=== PATIENT | female | born 1990 | race African-American/Black ===

== ENCOUNTER 2016-12-16 10:36 | Emergency (ER) | payer MEDICAID ==
[~2016-12-16 10:36] MED LIST: TERC0.4C2 VAGINAL
--- NOTE | 2016-12-16 11:34 | PD ---
HPI Chief Complaint pelvic cramping Date Seen: Dec 16, 2016 Time Seen: 11:16 Travel History International Travel<30 Days: No Contact w/Intl Traveler<30Days: No Known Affected Area: No History of Present Illness HPI 26 y/o at 38/1 weeks presents with pelvic pain/cramping. She woke up this morning with pain and lower pelvic cramping. Denies loss of fluids, vaginal bleeding/discharge, contractions. Endorses movement. Follows with Dr. Patel for OB. Denies any other complaints/concerns. Denies headaches, changes in vision, new leg swelling. Denies any chest pain, SOB, dysuria, leg pain. Para: 3 : 5 History Past Medical History Medical History: Denies Significant Hx Obstetric History Obstetric History Miscarriage at 2 months with last All vaginal deliveries Past Surgical History Surgical History: No Previous Surgery Family History Family History: Negative Social History Alcohol Use: No Tobacco Use: No Substance Abuse: No Allergies-Medications (Allergen,Severity, Reaction): Coded Allergies: No Known Allergies (Verified , 12/11/16) Home Meds Active Scripts Terconazole Vaginal Cream 0.4 % Cream1 Appl VAGINAL HS #45 GM Ref 0 Insert 1 applicatorful intravaginally at bedtime for 7 consecutive days. Prov:Lakeshia Patel MD R1 11/03/16 Review of Systems General / Constitutional: Weight Gain, No: Fever, Weight Loss, Chills Eyes: No: Blurred Vision, Visual changes HENT: No: Headaches, Lightheadedness Cardiovascular: No: Irregular Rhythm, Chest Pain or Discomfort, Palpitations, Tachycardia, Syncope Respiratory: No: Cough, Short of Breath, Wheezing Gastrointestinal: No: Nausea, Vomiting, Diarrhea, Abdominal Pain, Constipation Genitourinary: Pelvic Pain, No: Urgency, Frequency, Dysuria, Nocturia, Hematuria, Vaginal Bleeding Musculoskeletal: No: Limited ROM, Cramping, Edema Skin: No Rash, No Itching Neurologic: No: Weakness, Dizziness Psychiatric: No: Anxiety, Depression Endocrine: No: Heat Intolerance, Cold Intolerance Hematologic/Lymphatic: No Easy Bruising, No Lymph Node Enlargement Physical Exam Narrative GENERAL: Well-nourished, well-developed patient. SKIN: Warm and dry. HEAD: Normocephalic and atraumatic. EYES: No scleral icterus. No injection or drainage. ENT: No nasal drainage noted. Mucous membranes pink. Airway patent. NECK: Supple, trachea midline. No JVD. CARDIOVASCULAR: Regular rate and rhythm without murmurs, gallops, or rubs. RESPIRATORY: Breath sounds equal bilaterally. No accessory muscle use. ABDOMEN/GI: Abdomen soft, non-tender, bowel sounds present, no rebound, no guarding Gravid to 38 weeks size Fundal Height: 38 GENITOURINARY: Dilatation: 2 Effacement: 40 Station: -2 Presentation: vertex Membranes: intact Uterine Contractions: rare FHT's: Category: 1 Baseline: 130 Reactive: yes Variability: moderate Decels: none EXTREMITIES: No cyanosis or edema. BACK: Nontender without obvious deformity. No CVA tenderness. NEUROLOGICAL: Awake and alert. Motor and sensory grossly within normal limits. Five out of 5 muscle strength in all muscle groups. Normal speech. Data Data Vital Signs Reviewed: Yes MDM Medical Record Reviewed: Yes Interpretation(s) 26 y/o at 38/1 weeks presents with cramping 1) IUP with pelvic pressure - heart monitoring - Cervical check - Monitor vitals Narrative Course / MDM Cervix is 2cm dilated, thick, -2 station Category 1 FHT is reassuring. Discharge home in stable condition Return to ED if worsening symptoms Diagnosis Diagnosis: Primary Impression: Cramping affecting , antepartum Disposition: 01 DISCHARGE HOME Condition: Stable Wilver Melgoza MD R1 Dec 16, 2016 11:33
--- NOTE | 2016-12-16 12:31 | PD ---
History of Present Illness History of Present Illness This patient is a 26-year-old black female at 38 weeks presents combining of contraction pain that was severe this morning but now has decreased. No bleeding or ruptured membranes, baby is reactive heart rate tracing other minimal to home as no contractions. Cervix was checked by the family practice resident cervix was 2/ thick and high. I agree with her plan to send the patient home to bedrest return for increasing pain or other problems Josue Gupta II, MD Dec 16, 2016 12:31
== END 2016-12-16 13:13 | disposition home or self-care (01) ==
LOC: HOBED 10:36
DX: O26.93 Pregnancy related conditions, unspecified, third trimester (principal); R10.2 Pelvic and perineal pain; Z3A.38 38 weeks gestation of pregnancy
CPT/HCPCS: 99284

== ENCOUNTER → 2016-12-18 | Outpatient (CLI) | payer MEDICAID ==
[~2016-12-18] MED LIST changes: +CALNTAB; +CEPH-460 PO; +IBUP-232 PO; +OXYC1TAB63 PO; +SENN1TAB PO; +SIME80CH PO; +TRICTAB PO
== END ==
LOC: HPND 08:11
PROVIDERS: ATTEND Family Medicine
DX: O47.03 False labor before 37 completed weeks of gestation, third trimester (principal); O36.5930 Maternal care for other known or suspected poor fetal growth, third trimester, not applicable or unspecified; Z3A.37 37 weeks gestation of pregnancy
CPT/HCPCS: 76816

== ENCOUNTER 2016-12-19 01:18 | Inpatient (IN) | payer MEDICAID ==
[~2016-12-19 01:18] MED LIST changes: -CALNTAB; -CEPH-460 PO; -IBUP-232 PO; -OXYC1TAB63 PO; -SENN1TAB PO; -SIME80CH PO; -TRICTAB PO
[2016-12-19] MEDS ORDERED: LACTATED RINGER'S 1000 ML INJ 1,000 ML IV SCH (01:47)
[2016-12-19] MEDS ORDERED: LACTATED RINGER'S 1000 ML INJ 1,000 ML IV PRN (01:47)
[2016-12-19] MEDS ORDERED: LIDOCAINE HCL 1% 50 ML VIAL INFIL PRN (02:00)
[2016-12-19] MEDS ORDERED: LIDOCAINE HCL 1% 50 ML VIAL I-DERMAL PRN (02:00)
[2016-12-19] MEDS ORDERED: CITRIC ACID-SODIUM CITRATE LIQ 30 ML UDC PO SCH (02:00)
[2016-12-19] MEDS ORDERED: SODIUM CHLORID 0.9% 500 ML INJ 500 ML IV PRN (02:00)
[2016-12-19] MEDS ORDERED: ONDANSETRON HCL 4 MG/2 ML VIAL IV PRN (02:00)
[2016-12-19] MEDS ORDERED: MINERAL OIL 10 ML VIAL TOPICAL PRN (02:00)
[2016-12-19] MEDS ORDERED: OXYTOCIN 30 UNITS-500ML PREMIX 500 ML IV ONE (02:00)
[2016-12-19] MEDS ORDERED: SODIUM CHLOR 0.9% 1000 ML INJ 1,000 ML IV PRN (02:07)
--- NOTE | 2016-12-19 02:24 | PD ---
HPI Chief Complaint Contractions Date Seen: Dec 19, 2016 (Zach Patel MD R1) Travel History International Travel<30 Days: No Contact w/Intl Traveler<30Days: No Known Affected Area: No (Zach Patel MD R1) History of Present Illness HPI Mrs. Quintero is a 26 y/o at 38/4 presenting with contractions. She states that her contractions started earlier this evening and have progressed throughout the night to every 1-2 minutes. She is visibly in discomfort due to these contractions, but is able to breathe through her pain. She endorses good movement and denies any loss of fluid or vaginal bleeding. She has had some thick, white discharge that has been previously diagnosed as yeast. She has been using Terconazole vaginal cream nightly, however her discharge persists. Otherwise she has no complaints and denies any fevers, chills, SOB, chest pain, NVD, swelling or calf tenderness. She is GBS negative and is a patient of Dr. Lakeshia Patel from the [facility]. (Zach Patel MD R1) History Past Medical History Narrative Medical Denies significant PMHx (Zach Patel MD R1) Obstetric History Obstetric History First four pregnancies were uncomplicated at full term Last was a miscarriage at approximately 2 weeks per patient (Zach Patel MD R1) Past Surgical History Narrative Surgical Denies SHx (Zach Patel MD) Family History Narrative Family History Denies significant FMHx (Zach Patel MD) Social History Narrative Social History Denies any tobacco, alcohol, or illicit drug use. (Zach Patel MD R1) Allergies-Medications (Allergen,Severity, Reaction): Coded Allergies: No Known Allergies (Verified , 12/22/16) Home Meds Active Scripts Vit-Ferrous Fumarate ()1 Tab Tab1 Tab PO DAILY #30 TAB Ref 0 Prov:Lakeshia Patel MD R1 12/22/16 Reported Medications Vitamin (Calna)1 Tab Tab 12/22/16 Discontinued Scripts Cephalexin (Keflex)500 Mg [id number] Mg PO Q12H #14 CAP Ref 0 Prov:Zach Patel MD R1 12/19/16 Terconazole Vaginal Cream 0.4 % Cream1 Appl VAGINAL HS #45 GM Ref 0 Insert 1 applicatorful intravaginally at bedtime for 7 consecutive days. Prov:EkoLakeshia MD R1 11/03/16 Review of Systems General / Constitutional: No: Fever Eyes: No: Blurred Vision HENT: No: Headaches Cardiovascular: No: Chest Pain or Discomfort Respiratory: No: Cough, Short of Breath Gastrointestinal: No: Nausea, Vomiting, Diarrhea Genitourinary: Discharge (Thick, white consistent with yeast ), No: Dysuria, Vaginal Bleeding Musculoskeletal: No: Edema Skin: No Rash Neurologic: No: Headache Psychiatric: No: Substance Abuse Endocrine: No: Polydipsia Hematologic/Lymphatic: No Lymph Node Enlargement (Zach Patel MD R1) Physical Exam Narrative GENERAL: Well-nourished, well-developed patient. SKIN: Warm and dry. HEAD: Normocephalic and atraumatic. EYES: No scleral icterus. No injection or drainage. ENT: No nasal drainage noted. Mucous membranes pink. Airway patent. NECK: Supple, trachea midline. No JVD. CARDIOVASCULAR: Regular rate and rhythm without murmurs, gallops, or rubs. RESPIRATORY: Breath sounds equal bilaterally. No accessory muscle use. ABDOMEN/GI: Abdomen soft, non-tender, bowel sounds present, no rebound, no guarding Gravid to 38 weeks size GENITOURINARY: External Genitalia: intact and normal in appearance Cervix: Midposition Dilatation: 3-4cm Effacement: 80% Station: 0 Presentation: Vertex Membranes: Intact Uterine Contractions: 2-4m FHT's: Category: 1 Baseline: 150 Reactive: + Variability: Moderate Decels: None EXTREMITIES: No cyanosis or edema. BACK: Nontender without obvious deformity. No CVA tenderness. NEUROLOGICAL: Awake and alert. Motor and sensory grossly within normal limits. Five out of 5 muscle strength in all muscle groups. Normal speech. (Zach Patel MD R1) Data Data Vital Signs Reviewed: Yes Orders Admit To Inpatient (12/19/16 ) Code Status (12/19/16 01:47) Vital Signs (Adult) .Per protocol (12/19/16 01:47) ^ Heart (12/19/16 01:47) ^ Amnioinfusion (12/19/16 01:47) Urinary Catheter Management .ONCE (12/19/16 01:47) Diet Liquid (12/19/16 Breakfast) Lactated Ringer's 1000 Ml Inj (Lr 1000 M (12/19/16 01:47) Lactated Ringer's 1000 Ml Inj (Lr 1000 M (12/19/16 01:47) Sodium Chlorid 0.9% 500 Ml Inj (Ns 500 M (12/19/16 02:00) Sodium Chlor 0.9% 1000 Ml Inj (Ns 1000 M (12/19/16 02:07) Lidocaine 1% Inj (50 Ml) (Xylocaine 1% I (12/19/16 02:00) Citric Acid-Sodium Citrate Liq (Bicitra (12/19/16 02:00) Ondansetron Inj (Zofran Inj) (12/19/16 02:00) Fentanyl Inj (Fentanyl Inj) (12/19/16 02:00) Fentanyl Inj (Fentanyl Inj) (12/19/16 02:00) Complete Blood Count With Diff (12/19/16 01:47) Hold Clot (12/19/16 01:47) Abo/Rh Blood Type (12/19/16 01:47) Urinalysis - C+S If Indicated (12/19/16 01:47) Resp Oxygen Non Rebreathe Mask (12/19/16 ) ^ Epidural / Intrathecal Infus (12/19/16 01:47) Oxytocin 30 Units-500ml Premix (Pitocin (12/19/16 02:00) Lidocaine 1% Inj (50 Ml) (Xylocaine 1% I (12/19/16 02:00) Light Mineral Oil (Muri-Lube Oil) (12/19/16 02:00) Ob/Psych Drug Screen, Urine (12/19/16 01:47) Inpatient Certification (12/19/16 ) Ob (2e) Additional Admit Info (12/19/16 02:00) (Zach Patel MD R1) MDM Medical Record Reviewed: Yes Plan Mrs. Quintero is a 26 y/o at 38/4 presenting with contractions found to be in active labor 1. IUP at 38 weeks -Continue routine antepartum care -Category 1 strip, reassuring -Encourage oral hydration -UA: pending 2. Active Labor -Cervical exam: 3-4cm dilated, 80% effaced, 0 station -Contractions Q 2-4m -OB team will admit for active labor, orders placed -GBS negative -Patient prefers epidural -UDS: pending -Clear liquid diet SDW: Dr. Jones WDW: Dr. Dc and Dr. Patel Update at 0645: Patient has not progressed. Cervical exam remains unchanged with 3-4cm dilation , 70% effacement, and a station of -2 with intact membranes. Her contractions slowly resolved after fluid administration. UA noted to be positive for UTI which could contribute to her contractions as well. At this time she will be discharged home with Keflex 500mg BID for 7 days for her UTI. She was given proper labor precautions and instructed on when to return to L&D. DW: Dr. Dc, Dr. Jones, and Dr. Patel (Zach Patel MD R1) Attending Attestation 38 weeks Early latent labor, no cervical change and UC stopped. Change to Observation status and then d/c home with labor precautions (Lisa Dc MD) Diagnosis Diagnosis: Primary Impression: 38 weeks gestation of Additional Impressions: Uterine contractions during False labor after 37 weeks of gestation without delivery Zach Patel MD R1 Dec 19, 2016 02:24 Lisa Dc MD Dec 22, 2016 18:07
[2016-12-19 03:14] LABS: AUTOMATED NEUTROPHIL # 6.6 TH/MM3 (1.8-7.7); BASOPHIL % 0.4 % (0.0-2.0); EOSINOPHIL # 0.1 TH/MM3 (0-0.4); EOSINOPHIL % 1.1 % (0.0-4.0); HEMATOCRIT 30.5 % (35.0-46.0); HEMO FLAGS DIFF FINAL; LYMPHOCYTE # 1.6 TH/MM3 (1.0-4.8); MEAN CELL VOLUME 87.2 FL (80.0-100.0); MEAN CORPUSCULAR HEMOGLOBIN 30.2 PG (27.0-34.0); MEAN CORPUSCULAR HGB CONC 34.6 % (32.0-36.0); MONO % 7.5 % (0.0-8.0); PLATELET COUNT 201 TH/MM3 (150-450); RED BLOOD COUNT 3.49 MIL/MM3 (4.00-5.30); RED CELL DISTRIBUTION WIDTH 13.3 % (11.6-17.2); WHITE BLOOD COUNT 9.1 TH/MM3 (4.0-11.0)
[2016-12-19 03:21] LABS: BACTERIA, URINE RARE /hpf; BLOOD, URINE NEG (NEG); COMMENT (UR) CULTURE INDICATED; CULTURE IF INDICATED CULTURE INDICATED; GLUCOSE,URINE NEG (NEG); KETONE, URINE TRACE mg/dL (NEG); MUCUS URINE FEW /lpf (OCC); NITRITE,URINE NEG (NEG); PH, URINE 6.5 (5.0-8.5); SQUAMOUS EPITHELIAL CELL URINE <1 /hpf (0-5); URINE COLOR YELLOW (YELLW/STRAW)
[2016-12-19 03:25] LABS: AMPHETAMINE, URINE NEG (NEG); BARBITURATES, URINE NEG (NEG); COCAINE, URINE NEG (NEG)
[2016-12-19 04:00] VITALS: RESP 18; TEMP 98.4
[2016-12-19 05:00] VITALS: RESP 18
--- NOTE | 2016-12-19 06:38 | HHI.DCPOC ---
Discharge Care Plan Diagnosis: (1) False labor after 37 weeks of gestation without delivery Report Symptoms to Your Doctor -Temperate above 100.5 degrees -Redness, of incision or excessive or foul smelling drainage -Unusual pain or calf pain -Increased vaginal bleeding -Painful or difficulty urinating -Feelings of extreme sadness or anxiety after 2 weeks Goals to Promote Your Health * To prevent worsening of your condition and complications * To maintain your health at the optimal level Directions to Meet Your Goals Take your medications as prescribed Follow your dietary instruction Follow activity as directed Ensure plenty of rest for recovery Drink fluids for hydration Keep your appointments as scheduled Take your immunizations and boosters as scheduled If your symptoms worsen call your PCP, if no PCP go to Urgent Care Center or Emergency Room Smoking is Dangerous to Your Health. Avoid second hand smoke Call the 24-hour crisis hotline for domestic abuse at Zach Patel MD R1 Dec 19, 2016 06:38 Lisa Dc MD Dec 22, 2016 18:08
[2016-12-19] MEDS ORDERED: CEPH-460 PO (07:14)
[2016-12-24 10:02] LABS: BATH SALTS (MDPV) UR NEG (NEG); ECSTASY (MDMA) UR NEG (NEG); HEROIN (6-ACETYLMORPHINE) UR NEG (NEG); K2 SPICE UR NEG (NEG); OBMETHADONE UR NEG (NEG); OXYCODONE (PERCODAN) NEG (NEG); PHENCYCLIDINE URINE NEG (NEG)
== END 2016-12-19 07:41 | disposition home or self-care (01) | DRG 781 ==
LOC: HOBED 01:18 → H2EA 02:00
PROVIDERS: ADMIT Obstetrics & Gynecology; ATTEND Obstetrics & Gynecology
DX: O23.43 Unspecified infection of urinary tract in pregnancy, third trimester (principal); O47.1 False labor at or after 37 completed weeks of gestation; Z3A.38 38 weeks gestation of pregnancy
CPT/HCPCS: 76816; 80307; 81001; 85025; 86900; 86901; 87086; 99284; G0481

== ENCOUNTER 2016-12-22 01:29 | Inpatient (IN) | payer MEDICAID ==
[~2016-12-22] VITALS: Ht 175.3 cm; Wt 90.7 kg
[~2016-12-22 01:29] MED LIST changes: +CEPH-460 PO
[2016-12-22] MEDS ORDERED: LACTATED RINGER'S 1000 ML INJ 1,000 ML IV SCH ×2 (01:59→03:35)
[2016-12-22] MEDS ORDERED: LACTATED RINGER'S 1000 ML INJ 1,000 ML IV PRN (01:59)
[2016-12-22] MEDS ORDERED: CITRIC ACID-SODIUM CITRATE LIQ 30 ML UDC PO SCH ×2 (02:00→04:45)
[2016-12-22] MEDS ORDERED: LIDOCAINE HCL 1% 50 ML VIAL I-DERMAL PRN (02:00)
[2016-12-22] MEDS ORDERED: ONDANSETRON HCL 4 MG/2 ML VIAL IV PRN (02:00)
[2016-12-22] MEDS ORDERED: MINERAL OIL 10 ML VIAL TOPICAL PRN (02:00)
[2016-12-22] MEDS ORDERED: SODIUM CHLORID 0.9% 500 ML INJ 500 ML IV PRN (02:00)
[2016-12-22] MEDS ORDERED: OXYTOCIN 30 UNITS-500ML PREMIX 500 ML IV ONE ×2 (02:00→04:30)
[2016-12-22] MEDS ORDERED: LIDOCAINE HCL 1% 50 ML VIAL INFIL PRN (02:00)
[2016-12-22 02:05] LABS: AUTOMATED NEUTROPHIL # 6.6 TH/MM3 (1.8-7.7); BASOPHIL % 0.5 % (0.0-2.0); EOSINOPHIL # 0.1 TH/MM3 (0-0.4); EOSINOPHIL % 1.1 % (0.0-4.0); HEMATOCRIT 31.2 % (35.0-46.0); LYMPH % 19.8 % (9.0-44.0); LYMPHOCYTE # 1.8 TH/MM3 (1.0-4.8); MEAN CORPUSCULAR HGB CONC 35.2 % (32.0-36.0); MONO % 7.5 % (0.0-8.0); NEUT % 71.1 % (16.0-70.0); PLATELET COUNT 223 TH/MM3 (150-450); RED BLOOD COUNT 3.54 MIL/MM3 (4.00-5.30); RED CELL DISTRIBUTION WIDTH 13.1 % (11.6-17.2); WHITE BLOOD COUNT 9.2 TH/MM3 (4.0-11.0)
[2016-12-22 02:07] LABS: HEMO FLAGS AUTO DIFF
--- NOTE | 2016-12-22 02:09 | PD ---
HPI Chief Complaint contractions Date Seen: Dec 22, 2016 (Una Henry MD R2) Travel History International Travel<30 Days: No Contact w/Intl Traveler<30Days: No (Una Henry MD R2) History of Present Illness HPI Patient is a 26 year old at 39-0/7 weeks gestation who presents today for contractions. Contractions started this evening and have been increasing in frequency and intensity. They are now occurring every 2 minutes. She denies any vaginal bleeding, discharge, gush or leaking of fluid. Positive movement. care with Dr. Patel at the [facility]. (Una eHnry MD R2) History Past Medical History Medical History: Denies Significant Hx (nUa Henry MD R2) Obstetric History Obstetric History s/p x 3 without complications at term (Una Henry MD R2) Past Surgical History Surgical History: No Previous Surgery (Una Henry MD R2) Family History Family History: Negative (Una Henry MD R2) Social History Alcohol Use: No Tobacco Use: No Substance Abuse: No (Una Henry MD R2) Allergies-Medications (Allergen,Severity, Reaction): Coded Allergies: No Known Allergies (Verified , 12/22/16) Home Meds Active Scripts Vit-Ferrous Fumarate ()1 Tab Tab1 Tab PO DAILY #30 TAB Ref 0 Prov:Lakeshia Patel MD R1 12/22/16 Reported Medications Vitamin (Calna)1 Tab Tab 12/22/16 Discontinued Scripts Cephalexin (Keflex)500 Mg [id number] Mg PO Q12H #14 CAP Ref 0 Prov:Zach Patel MD R1 12/19/16 Terconazole Vaginal Cream 0.4 % Cream1 Appl VAGINAL HS #45 GM Ref 0 Insert 1 applicatorful intravaginally at bedtime for 7 consecutive days. Prov:Lakeshia Patel MD R1 11/03/16 Review of Systems Except as stated in HPI: all other systems reviewed are Neg General / Constitutional: No: Fever, Chills Eyes: No: Visual changes HENT: No: Headaches Cardiovascular: No: Chest Pain or Discomfort Respiratory: No: Cough, Short of Breath Gastrointestinal: No: Nausea, Vomiting Genitourinary: Pelvic Pain, No: Dysuria, Discharge, Vaginal Bleeding Musculoskeletal: Edema Skin: No Rash Neurologic: No: Headache Psychiatric: No: Substance Abuse (Una Henry MD R2) Physical Exam Narrative GENERAL: Well-nourished, well-developed patient. SKIN: Warm and dry. HEAD: Normocephalic and atraumatic. EYES: No scleral icterus. No injection or drainage. ENT: No nasal drainage noted. Mucous membranes pink. Airway patent. NECK: Supple, trachea midline. No JVD. CARDIOVASCULAR: Regular rate and rhythm without murmurs, gallops, or rubs. RESPIRATORY: Breath sounds equal bilaterally. No accessory muscle use. ABDOMEN/GI: Abdomen soft, non-tender, bowel sounds present, no rebound, no guarding Gravid to 39 weeks size GENITOURINARY: External Genitalia: intact and normal in appearance BUS glands: normal Cervix: anterior Dilatation: 4 Effacement: 70 Station: -2 Presentation: vertex Membranes: intact Uterine Contractions: irregular FHT's: Category: II Baseline: 160 Reactive: + Variability: minimal-moderate Decels: variables EXTREMITIES: No cyanosis or edema. BACK: Nontender without obvious deformity. NEUROLOGICAL: Awake and alert. Motor and sensory grossly within normal limits. Normal speech. (Una Henry MD R2) Data Data Vital Signs Reviewed: Yes Orders Vital Signs (Adult) .ON ADMISSION (12/22/16 01:48) ^ Labor Status (12/22/16 01:48) ^ Non Stress Test (12/22/16 01:48) ^ Hydration (12/22/16 01:48) Ob (2e) Additional Admit Info (12/22/16 01:52) Hold Clot (12/22/16 01:57) Complete Blood Count With Diff (12/22/16 01:57) Admit To Inpatient (12/22/16 ) Code Status (12/22/16 01:59) Vital Signs (Adult) .Per protocol (12/22/16 01:59) Activity Oob Ad Renetta (12/22/16 01:59) ^ Heart (12/22/16 01:59) ^ Amnioinfusion (12/22/16 01:59) Urinary Catheter Management .ONCE (12/22/16 01:59) Diet Liquid (12/22/16 Breakfast) Lactated Ringer's 1000 Ml Inj (Lr 1000 M (12/22/16 01:59) Lactated Ringer's 1000 Ml Inj (Lr 1000 M (12/22/16 01:59) Sodium Chlorid 0.9% 500 Ml Inj (Ns 500 M (12/22/16 02:00) Sodium Chlor 0.9% 1000 Ml Inj (Ns 1000 M (12/22/16 02:19) Lidocaine 1% Inj (50 Ml) (Xylocaine 1% I (12/22/16 02:00) Citric Acid-Sodium Citrate Liq (Bicitra (12/22/16 02:00) Ondansetron Inj (Zofran Inj) (12/22/16 02:00) Fentanyl Inj (Fentanyl Inj) (12/22/16 02:00) Fentanyl Inj (Fentanyl Inj) (12/22/16 02:00) Abo/Rh Blood Type (12/22/16 01:59) Urinalysis - C+S If Indicated (12/22/16 01:59) Resp Oxygen Non Rebreathe Mask (12/22/16 ) ^ Epidural / Intrathecal Infus (12/22/16 01:59) Oxytocin 30 Units-500ml Premix (Pitocin (12/22/16 02:00) Lidocaine 1% Inj (50 Ml) (Xylocaine 1% I (12/22/16 02:00) Light Mineral Oil (Muri-Lube Oil) (12/22/16 02:00) Inpatient Certification (12/22/16 ) Specimen To Be Collected PRN (12/22/16 01:59) (Una Henry MD R2) MDM Medical Record Reviewed: Yes Narrative Course / MDM 26 year old at 39-0/7 weeks gestation 1. IUP- Category II tracing with initial bradycardia and decelerations. Improving with IV fluid bolus, supplemental O2, position change. Continue to monitor closely. Based on non-reassuring tracing, will admit to L&D and induce labor. 2. IOL- plan for AROM with placement of scalp electrode 3. GBS negative 4. Patient desires epidural sdw Dr. Fanta Patel (Una Henry MD R2) Attestation Patient seen and evaluated with the resident under direct supervision, I agree with the assessment and plan. (Korey Jewell MD) Una Henry MD R2 Dec 22, 2016 02:09 Korey Jewell MD Dec 23, 2016 17:46
[2016-12-22] MEDS ORDERED: CALNTAB (02:16)
[2016-12-22] MEDS ORDERED: SODIUM CHLOR 0.9% 1000 ML INJ 1,000 ML IV PRN (02:19)
[2016-12-22 02:28] LABS: PLATELET ESTIMATE SMEAR NORMAL (NORMAL); PLATELET MORPHOLOGY NORMAL (NORMAL); SCAN/DIFF AUTO DIFF CONFIRMED
[2016-12-22] MEDS ORDERED: fentaNYL 2MCG-BUPIV 0.125% INJ 100 ML ONE (02:35)
[2016-12-22] MEDS ORDERED: EPIDURAL-NO SYSTEMIC NARCOTICS XX PRN (03:00)
[2016-12-22] MEDS ORDERED: EPIDURAL-DIPHENHYDRAMINE HCL 50 MG/ML VIAL IV PUSH PRN (03:00)
[2016-12-22] MEDS ORDERED: EPIDURAL-DO NOT ADMINISTER ANTICOAGULANTS XX PRN (03:00)
[2016-12-22] MEDS ORDERED: EPIDURAL-DIPHENHYDRAMINE HCL 50 MG CAP PO PRN (03:00)
[2016-12-22] MEDS ORDERED: ACETAMINOPHEN 325 MG TAB PO ONE (03:00)
[2016-12-22] MEDS ORDERED: EPIDURAL-NALOXONE HCL 0.4 MG/ML AMP IV PRN (03:00)
[2016-12-22] MEDS ORDERED: OXYTOCIN 30 UNITS-500ML PREMIX 500 ML IV SCH (03:00)
[2016-12-22] MEDS ORDERED: LACTATED RINGER'S 1000 ML INJ 1,000 ML IV ONE (03:05)
[2016-12-22] MEDS ORDERED: ceFAZolin INJ 1,000 MG VIAL ONE (03:12)
[2016-12-22] MEDS ORDERED: ACETAMINOPHEN 1000 MG/100 ML VIAL IV ONE ×2 (03:13→04:30)
[2016-12-22] MEDS ORDERED: OXYTOCIN 10 UNIT/ML AMP ONE (03:13)
[2016-12-22 03:43] LABS: BLOOD GAS BASE EXCESS -1.3 mmol/L (-2-2); BLOOD GAS O2 HGB SATURATION 15 % (90-100); CORD BLOOD GAS HCO3 25 mmol/L (21-29); CORD BLOOD GAS PCO2 57 mmHG (34-78); CORD BLOOD GAS PH 7.26 (7.14-7.42); CORD BLOOD GAS PO2 13 mmHG (3.0-40.0); DRAW SITE CORD BLOOD; STAT NO
[2016-12-22] MEDS ORDERED: ceFAZolin 2 GM PREMIX 50 ML IV SCH (04:15)
[2016-12-22] MEDS ORDERED: MORPHINE SULFATE PF 5 MG/10 ML VIAL ONE (04:24)
[2016-12-22] MEDS ORDERED: ONDANSETRON HCL 4 MG/2 ML VIAL ONE (04:24)
[2016-12-22] MEDS ORDERED: ZOLPIDEM TARTRATE 5 MG TAB PO PRN (04:30)
[2016-12-22] MEDS ORDERED: ONDANSETRON HCL 4 MG/2 ML VIAL IV PUSH PRN (04:30)
[2016-12-22] MEDS ORDERED: KETOROLAC TROMETHAMINE 60 MG/2 ML (IM) VIAL IM PRN (04:30)
[2016-12-22] MEDS ORDERED: ACETAMINOPHEN 325 MG TAB PO PRN (04:30)
[2016-12-22] MEDS ORDERED: oxyCODONE/ACETAMINOPHEN 5 MG/325 MG TAB PO PRN (04:30)
[2016-12-22] MEDS ORDERED: SODIUM CHLORIDE 0.9% FLUSH 5 ML FLUSH IV PRN (04:30)
[2016-12-22] MEDS: LACTATED RINGER'S 1000 ML INJ 1,000 ML IV SCH ×2 (04:35→21:24)
[2016-12-22] MEDS ORDERED: BENZOCAINE 20% ORAL SPR 60 ML CAN OROPHARYNG PRN (04:45)
--- NOTE | 2016-12-22 04:54 | PD.OP ---
cc: Lakeshia Patel MD R1 Operative Report Date of Surgery: Dec 22, 2016 Preoperative Diagnosis: (1) 39 weeks gestation of (2) Non-reassuring cardiotocographic tracing (3) with bradycardia during labor (4) Oligohydramnios in third trimester 26-year-old at 39 weeks of gestation in labor, oligohydramnios, nonreassuring heart tracing, bradycardia Postoperative Diagnosis: (1) 39 weeks gestation of (2) Non-reassuring status, delivered, current hospitalization (3) bradycardia, delivered, current hospitalization (4) Direct occiput anterior presentation of fetus (5) Oligohydramnios in third trimester at 39 weeks of gestation, oligohydramnios, nonreassuring heart tracing, bradycardia, direct occiput posterior position. Procedure: Primary low segment transverse section via P Pfannenstiel skin incision Anesthesia: Epidural Anesthesiologist: Elie Newell CRNA Surgeon: Korey Jewell M.D Apple Peeler Operator(s): Dr. Lakeshia PATEL, PGY 1 resident Resident Surgeon: Dr. Lakeshia Patel, PGY 1 resident Operation and Findings: Estimated blood loss: 500 mL, urine output is 100 mL of clear urine at the end of the procedure, IV fluids: 2000 mL of Ringer's lactate Complications: None Specimens: Placenta. Findings: Live male in cephalic presentation, direct occiput posterior position, Apgars 7at 1 minute , 8 at 5 minutes and 9 at 10 minutes, nursery team present at delivery, weight 3545 g, 7 lbs. 13 oz. Time of delivery 03:21 hours. Normal uterus, tubes, and ovaries. Arterial cord blood gas shows pH 7.28, PCO2 56.8, PCO2 13.1 , bicarbonate 24.8, base excess -1.3 Indications: 26-year-old at 39 weeks of gestation presents to labor and delivery in labor, while the patient was in OB ED she was noted to have repetitive variable decelerations at which point the patient was transferred to the labor room, artificial rupture of membranes was performed patient was noted to have oligohydramnios, intrauterine pressure catheter was inserted and amnioinfusion was started and resuscitative measures were instituted, and the patient recovered momentarily, however after patient received epidural for pain management she developed bradycardia which did not respond to resuscitative measures. At this point the need for a primary section due to nonreassuring heart tracing was discussed with the patient The risks,benefits, indications and alternatives of the procedure were reviewed including but not limited to increased risks of bleeding, infection, damage to the bladder, bowel, ureters, blood vessels and nerves. Increased risks of DVT and PE. All questions were answered and informed consent was obtained. Procedures: After informed consent was obtained the patient was taken to the operating room where epidural anesthesia was found to be adequate. She was then prepped and draped in the normal sterile fashion in the dorsal supine position with a leftward tilt. A Pfannenstiel skin incision was then made with the scalpel and carried through to the underlying layer of fascia with the Bovie. The fascia was incised in the midline and incision extended laterally with the Gunter scissors. The superior aspect of the fascial incision was then grasped with Mile clamps, elevated, and the underlying rectus muscles dissected off bluntly. Attention was then turned to the inferior aspect of this incision which in in a similar fashion was grasped, tented up with the Mile clamps and the rectus muscle dissected off bluntly. The rectus muscles were then in the midline and the peritoneum identified, tented up, and entered sharply with the Metzenbaum scissors. The peritoneal incision was then extended superiorly and inferiorly with good visualization of the bladder. The bladder blade was then inserted and the vesicouterine peritoneum identified, grasped with the pickups, and entered sharply with the Metzenbaum scissors. This incision was then extended laterally and the bladder flap created digitally. The bladder blade was then reinserted and the lower uterine segment incised in a transverse fashion with the scalpel. The uterine incision was then extended laterally with the bandage scissors. The bladder blade was removed and the 's head was delivered atraumatically. The was noted to be in direct occiput posterior position. The mouth and nose were suctioned with a bulb suction and the cord was clamped and cut. The infant was handed off to the waiting nursing team. Arterial blood gas and Cord blood was obtained. The placenta was then removed manually, the uterus was externalized and cleared of all clots and debris. The uterine incision was repaired with 0 Vicryl in a running locked fashion. A second layer of the same suture was used to obtain excellent hemostasis. The bladder flap was repaired with 3-0 Vicryl in a running stitch.The uterus and the tubes were then returned to the abdomen. The gutters were cleared of all clots and debris and the peritoneum was closed with the 2-0 chromic suture. The fascia was reapproximated with 0 Vicryl in a running fashion. The skin was closed in a subcuticular fashion using 3-0 Monocryl. Dermabond was applied to the incision as well as Steri-Strips. The patient tolerated the procedure well. All sponges, laps, needle and instrument counts were correct 2. The patient received 2 g of Ancef prior to surgery. The patient was taken to the recovery area in stable condition. Korey Jewell MD Dec 22, 2016 04:54
[2016-12-22] MEDS ORDERED: KETOROLAC TROMETHAMINE 30 MG/ML (IVP) VIAL ONE (05:34)
[2016-12-22] MEDS ORDERED: OXYTOCIN 30 UNITS-500ML PREMIX 500 ML ONE (06:10)
[2016-12-22] MEDS ORDERED: fentaNYL 2MCG-BUPIV 0.125% INJ 100 ML EPIDURAL SCH (07:00)
[2016-12-22] MEDS ORDERED: ePHEDrine/NS 50 MG/5 ML SYR IV PRN (07:00)
[2016-12-22] MEDS ORDERED: NO SYSTEM NARCOTICS XX PRN (07:00)
[2016-12-22] MEDS ORDERED: DO NOT ADMINISTER ANTICOAGULANTS XX PRN (07:00)
--- NOTE | 2016-12-22 07:25 | HHI.OB ---
Subjective Post Operative Day: 0 Remarks Postoperative day #0. AFVSS. Pain manageable. Incision clean, dry, and intact, not draining. Moderate lochia. Denies dysuria. She is feeding the baby via formula, but is considering breast feeding. Appetite good. No nausea or vomiting. Negative flatus. Negative bowel movement. Not yet ambulating. Denies fever, chills, cough, shortness of breath, chest pain, and calf pain. Otherwise , she is doing well this morning and has no other complaints. Objective Result Diagram: 12/22/16 0155 Objective Remarks GENERAL: Well-nourished, well-developed patient. CARDIOVASCULAR: Regular rate and rhythm without murmurs, gallops, or rubs. RESPIRATORY: Breath sounds equal bilaterally. No accessory muscle use. ABDOMEN/GI: Abdomen soft, non-tender, bowel sounds present. Incision: Clean, dry and intact. Fundus: Firm, non-tender below umbilicus. GENITOURINARY: Light to moderate bleeding. EXTREMITIES: No cyanosis or edema, non-tender, without signs of DVT. Medications and IVs Current Medications Medications (Trade) Dose Ordered Sig/Pratik Route Start Time Stop Time Status Last Admin Lactated Ringer's 1,000 ml @ 100 mls/hr Q10H IV 12/22/16 09:27 12/23/16 05:26 12/22/16 04:35 (Pitocin 30 Units-NS 500 ml Premix) 500 ml @ 100 mls/hr ONCE ONCE IV 12/22/16 04:30 12/22/16 09:29 12/22/16 06:38 (NS Flush) 2 ml BID IV 12/22/16 09:00 (NS Flush) 2 ml UNSCH PRN IV 12/22/16 04:30 (Mylicon Chew) 80 mg QID PRN PO 12/22/16 04:30 (Tylenol) 650 mg Q6H PRN PO 12/22/16 04:30 (Motrin) 600 mg Q6H PRN PO 12/22/16 04:30 (Toradol Inj) 30 mg Q6H PRN IM 12/22/16 04:30 12/23/16 04:29 (Percocet 5-325 Mg) 1 tab Q4H PRN PO 12/22/16 04:30 Oxycodone/ Acetaminophen 2 tab 2 tab Q4H PRN PO 12/22/16 04:30 (Ancef Inj/NS Inj) 100 ml @ 200 mls/hr Q8H IV 12/22/16 11:00 12/22/16 19:29 (Ambien) 5 mg HS PRN PO 12/22/16 04:30 (M-M-R Ii Inj) 0.5 ml ONCE ONCE SQ 12/23/16 16:00 12/23/16 16:01 (Boostrix Inj) 0.5 ml ONCE ONCE IM 12/23/16 16:00 12/23/16 16:01 (Zofran Inj) 4 mg Q6H PRN IV PUSH 12/22/16 04:30 12/22/16 03:21 (Hurricaine 20% Oral Spr) 1 spray Q6H PRN OROPHARYNG 12/22/16 04:45 Miscellaneous Information NO SYSTEMIC NARCOTICS TO BE GIVEN FO... UNSCH PRN XX 12/22/16 03:00 12/23/16 02:59 (Narcan Inj) 0.4 mg UNSCH PRN IV 12/22/16 03:00 12/23/16 02:59 (Benadryl Inj) 25 mg Q6H PRN IV PUSH 12/22/16 03:00 12/23/16 02:59 (Benadryl) 50 mg Q6H PRN PO 12/22/16 03:00 12/23/16 02:59 Miscellaneous Information ALL NURSING DEPARTMENTS UNSCH PRN XX 12/22/16 03:00 12/23/16 02:59 Miscellaneous Information No systemic narcotics to be given except... UNSCH PRN XX 12/22/16 07:00 12/23/16 06:59 Miscellaneous Information DO NOT ADMINISTER ANY ANTICOAGUL... UNSCH PRN XX 12/22/16 07:00 12/23/16 06:59 (fentaNYL 2MCG-BUPIV 0.125% INJ) 100 ml @ 0 mls/hr TITRATE EPIDURAL 12/22/16 07:00 (ePHEDrine/NS 50 MG/5 ML SYR) 10 mg UNSCH PRN IV 12/22/16 07:00 12/23/16 06:59 Assessment/Plan Assessment and Plan 26y/o female who is PPD#0 s/p emergency -Continue routine care -Percocet PRN for pain -Pericolase PRN for constipation -Preparation-H every 8 hours when necessary for hemorrhoid pain -Encouraged OOB. Advised pelvic rest for 6 wks -Will need a follow-up appointment within 6 wks -Re: ctrl - patient desires tubal ligation -D/c 2-3 days Will discuss with Dr. Yan Discharge Planning Anticipate discharge home in 2-3 days Lakeshia Patel MD R1 Dec 22, 2016 07:25
[2016-12-22 07:30] LABS: AMPHETAMINE, URINE NEG (NEG); BARBITURATES, URINE NEG (NEG); COCAINE, URINE NEG (NEG)
[2016-12-22 07:55] VITALS: BP 112/75; PULSE 60; RESP 16; TEMP 98
[2016-12-22] MEDS ORDERED: TRICTAB PO (08:20)
[2016-12-22] MEDS ORDERED: PETROLEUM/SHARK LIVER OIL 60 GM TUBE RECTAL PRN (08:45)
[2016-12-22] MEDS ORDERED: DOCUSATE SODIUM 50 MG/SENNA 8.6 MG TAB PO PRN (08:45)
[2016-12-22] MEDS ORDERED: SODIUM CHLORIDE 0.9% FLUSH 5 ML FLUSH IV SCH (09:00)
[2016-12-22] MEDS: IBUPROFEN 600 MG TAB PO PRN ×2 (12:20→21:00)
[2016-12-22] MEDS: oxyCODONE/ACETAMINOPHEN 5 MG/325 MG TAB PO PRN ×3 (12:20→21:00)
[2016-12-22] MEDS ORDERED: OXYTOCIN 30 UNITS-500ML PREMIX 500 ML IV PRN (14:30)
[2016-12-22 19:30] VITALS: BP 115/57; PULSE 73; RESP 18; TEMP 98.2; O2SAT 97
[2016-12-23] MEDS: oxyCODONE/ACETAMINOPHEN 5 MG/325 MG TAB PO PRN ×3 (01:51→11:49)
[2016-12-23 05:07] LABS: AUTOMATED NEUTROPHIL # 10.6 TH/MM3 (1.8-7.7); BASOPHIL % 0.3 % (0.0-2.0); EOSINOPHIL # 0.1 TH/MM3 (0-0.4); EOSINOPHIL % 0.8 % (0.0-4.0); HEMATOCRIT 33.2 % (35.0-46.0); HEMO FLAGS DIFF FINAL; LYMPH % 9.9 % (9.0-44.0); LYMPHOCYTE # 1.3 TH/MM3 (1.0-4.8); MEAN CORPUSCULAR HEMOGLOBIN 30.2 PG (27.0-34.0); MEAN CORPUSCULAR HGB CONC 33.9 % (32.0-36.0); MONO % 7.3 % (0.0-8.0); NEUT % 81.7 % (16.0-70.0); PLATELET COUNT 212 TH/MM3 (150-450); RED BLOOD COUNT 3.73 MIL/MM3 (4.00-5.30); RED CELL DISTRIBUTION WIDTH 13.2 % (11.6-17.2)
[2016-12-23] MEDS: IBUPROFEN 600 MG TAB PO PRN ×3 (06:36→22:52)
--- NOTE | 2016-12-23 07:41 | HHI.OB ---
Subjective Remarks Postoperative day #1. Pain controlled with medication. Minimal lochia. Appetite good. No nausea or vomiting. She is complaining of diarrhea. Ambulating well. No fever, chills, cough, shortness of breath, chest pain, and calf pain. Otherwise, she is doing well this morning and has no other complaints. (Oren Arellano MD R2) Remarks Patient report some loose stools overnight with GI cramping. Lochia light. Uterine cramping and incisional pain moderate. Taking Motrin and Percocet. ( Lisa Dc MD) Objective Vitals/I&O Vital Signs Date Time Temp Pulse Resp B/P Pulse Ox O2 Delivery O2 Flow Rate FiO2 12/23/16 02:51 18 12/22/16 22:00 18 12/22/16 19:30 98.2 73 18 115/57 97 12/22/16 07:55 98.0 60 16 112/75 (Oren Arellano MD R2) Result Diagram: 12/23/16 0426 Objective Remarks GENERAL: Well-nourished, well-developed patient. CARDIOVASCULAR: Regular rate and rhythm without murmurs, gallops, or rubs. RESPIRATORY: Breath sounds equal bilaterally. No accessory muscle use. ABDOMEN/GI: Abdomen soft, non-tender, bowel sounds present. Incision: Clean, dry and intact. Fundus: Firm, non-tender below umbilicus. GENITOURINARY: Light to moderate bleeding. EXTREMITIES: No cyanosis or edema, non-tender, without signs of DVT. Medications and IVs Current Medications Medications (Trade) Dose Ordered Sig/[facility] Route Start Time Stop Time Status Last Admin (NS Flush) 2 ml BID IV 12/22/16 09:00 (NS Flush) 2 ml UNSCH PRN IV 12/22/16 04:30 (Mylicon Chew) 80 mg QID PRN PO 12/22/16 04:30 (Tylenol) 650 mg Q6H PRN PO 12/22/16 04:30 (Motrin) 600 mg Q6H PRN PO 12/22/16 04:30 12/23/16 06:36 (Percocet 5-325 Mg) 1 tab Q4H PRN PO 12/22/16 04:30 (Percocet 5-325 Mg) 2 tab Q4H PRN PO 12/22/16 04:30 12/23/16 06:36 (Ambien) 5 mg HS PRN PO 12/22/16 04:30 (M-M-R Ii Inj) 0.5 ml ONCE ONCE SQ 12/23/16 16:00 12/23/16 16:01 (Boostrix Inj) 0.5 ml ONCE ONCE IM 12/23/16 16:00 12/23/16 16:01 (Zofran Inj) 4 mg Q6H PRN IV PUSH 12/22/16 04:30 12/22/16 03:21 Benzocaine 1 spray 1 spray Q6H PRN OROPHARYNG 12/22/16 04:45 (fentaNYL 2MCG-BUPIV 0.125% INJ) 100 ml @ 0 mls/hr TITRATE EPIDURAL 12/22/16 07:00 (Preparation H Oint) 1 applic Q6H PRN RECTAL 12/22/16 08:45 (Fawn-Colace) 1 tab BID PRN PO 12/22/16 08:45 (Oren Arellano MD R2) Assessment/Plan Assessment and Plan 26y/o female who is PPD#1 s/p emergency for variable decels. -Percocet, ibuprofen PRN for pain -Pericolase PRN for constipation -Encouraged OOB. Advised pelvic rest for 6 wks -Re: ctrl - patient desires tubal ligation -D/c next one to two days (Oren Arellano MD R2) Attending Attestation POD #1 s/p Primary Continue PP care work on pain control and will give binder Watch loose stools for now Tolerating a regular diet Patient seen and examined with Dr. Melgoza and Dr. Arellano (Lisa Dc MD) Oren Arellano MD R2 Dec 23, 2016 07:41 Lisa Dc MD Dec 23, 2016 08:49
[2016-12-23 08:24] VITALS: BP 112/67; PULSE 64; RESP 16; TEMP 98
[2016-12-23] MEDS ORDERED: KETOROLAC TROMETHAMINE 60 MG/2 ML (IM) VIAL IM ONE (14:00)
[2016-12-23] MEDS: ACETAMINOPHEN/HYDROcodone 325 MG/10 MG TAB PO PRN ×3 (15:42→23:32)
[2016-12-23] MEDS ORDERED: MEASLES, MUMPS, RUBELLA VACCINE 0.5 ML VIAL SQ ONE (16:00)
[2016-12-23] MEDS ORDERED: DIPHTH/TETANUS/ACEL PERTUSSIS (BOOSTER) 0.5 ML VIAL/PFS IM ONE (16:00)
[2016-12-23 19:40] VITALS: BP 120/78; PULSE 88
[2016-12-24] MEDS: SIMETHICONE 80 MG CHEWABLE TAB PO PRN ×2 (02:40→12:44)
[2016-12-24] MEDS: oxyCODONE/ACETAMINOPHEN 5 MG/325 MG TAB PO PRN ×5 (02:40→21:24)
--- NOTE | 2016-12-24 07:20 | HHI.OB ---
Subjective Post Operative Day: 2 Remarks Postoperative day number 2. AFVSS overnight. Pain controlled. Incision not draining. Decreased lochia. Denies dysuria. No breast tenderness. She is feeding the baby via breast. Appetite good. No nausea or vomiting. Endorses flatus. No bowel movement. Ambulating well. Denies calf pain, shortness of breath, or cough. Otherwise, she is doing well this morning and has no other complaints. (Wilver Melgoza MD R1) Objective Vitals/I&O Vital Signs Date Time Temp Pulse Resp B/P Pulse Ox O2 Delivery O2 Flow Rate FiO2 12/23/16 20:45 18 12/23/16 19:40 88 120/78 12/23/16 08:24 98.0 64 16 112/67 (Wilver Melgoza MD R1) Result Diagram: 12/23/16 0426 Objective Remarks GENERAL: Well-nourished, well-developed patient. CARDIOVASCULAR: Regular rate and rhythm without murmurs, gallops, or rubs. RESPIRATORY: Breath sounds equal bilaterally. No accessory muscle use. ABDOMEN/GI: Abdomen soft, non-tender, bowel sounds present. Incision: Clean, dry and intact. Fundus: Firm, non-tender below umbilicus. GENITOURINARY: Light to moderate bleeding. EXTREMITIES: No cyanosis or edema, non-tender, without signs of DVT. Medications and IVs Current Medications Medications (Trade) Dose Ordered Sig/Pratik Route Start Time Stop Time Status Last Admin (NS Flush) 2 ml BID IV 12/22/16 09:00 (NS Flush) 2 ml UNSCH PRN IV 12/22/16 04:30 (Mylicon Chew) 80 mg QID PRN PO 12/22/16 04:30 12/24/16 02:40 (Tylenol) 650 mg Q6H PRN PO 12/22/16 04:30 (Motrin) 600 mg Q6H PRN PO 12/22/16 04:30 12/23/16 22:52 (Ambien) 5 mg HS PRN PO 12/22/16 04:30 (Zofran Inj) 4 mg Q6H PRN IV PUSH 12/22/16 04:30 12/22/16 03:21 Benzocaine 1 spray 1 spray Q6H PRN OROPHARYNG 12/22/16 04:45 (fentaNYL 2MCG-BUPIV 0.125% INJ) 100 ml @ 0 mls/hr TITRATE EPIDURAL 12/22/16 07:00 (Preparation H Oint) 1 applic Q6H PRN RECTAL 12/22/16 08:45 (Fawn-Colace) 1 tab BID PRN PO 12/22/16 08:45 (Percocet 5-325 Mg) 2 tab Q4H PRN PO 12/24/16 01:45 12/24/16 02:40 (Wilver Melgoza MD R1) Assessment/Plan Assessment and Plan 26y/o female who is POD#2 s/p CXN for variable decels -Continue routine care. -Percocet and Motrin PRN pain. -Encouraged OOB. Advised pelvic rest for 6 wks. Will need a f/u appt. in 1 wk for incision check. -Re: ctrl, she would like tubal ligation. -D/c in 1-2 more days. wdw OB attending (Wilver Melgoza MD R1) Attending Attestation Patient seen and evaluated with the resident under direct supervision, I agree with the assessment and plan. (Korey Jewell MD) Wilver Melgoza MD R1 Dec 24, 2016 07:20 Korey Jewell MD Dec 26, 2016 11:23
[2016-12-24] MEDS: IBUPROFEN 600 MG TAB PO PRN ×3 (07:45→21:24)
[2016-12-25] MEDS: oxyCODONE/ACETAMINOPHEN 5 MG/325 MG TAB PO PRN ×3 (02:25→11:09)
[2016-12-25] MEDS: IBUPROFEN 600 MG TAB PO PRN ×2 (06:28→13:10)
[2016-12-25] MEDS ORDERED: IBUP-232 PO (06:58)
[2016-12-25] MEDS ORDERED: SENN1TAB PO (06:58)
[2016-12-25] MEDS ORDERED: SIME80CH PO (06:58)
[2016-12-25] MEDS ORDERED: OXYC1TAB63 PO (06:58)
--- NOTE | 2016-12-25 06:59 | HHI.DCPOC ---
Discharge Care Plan Diagnosis: (1) delivery delivered Goals to Promote Your Health * To prevent worsening of your condition and complications * To maintain your health at the optimal level Directions to Meet Your Goals Take your medications as prescribed Follow your dietary instruction Follow activity as directed Keep your appointments as scheduled Take your immunizations and boosters as scheduled If your symptoms worsen call your PCP, if no PCP go to Urgent Care Center or Emergency Room Smoking is Dangerous to Your Health. Avoid second hand smoke Call the 24-hour hour crisis hotline for domestic abuse at Oren Arellano MD R2 Dec 25, 2016 06:59
--- NOTE | 2016-12-25 07:02 | HHI.OB ---
Subjective Remarks Postoperative day number 3. Pain well-controlled. Incision not draining. Lochia is minimal. She is formula feeding due to pain with , encouraging exclusive and discussed techniques and benefits to the baby. Appetite good. No nausea or vomiting. Ambulating well. No calf pain , shortness of breath, or cough. Otherwise, she is doing well this morning and has no other complaints. (Oren Arellano MD R2) Remarks Patient seen and examined. Agree with resident assessment and plan. (Adelaida Oropeza MD) Objective Result Diagram: 12/23/16 5393 Objective Remarks GENERAL: Well-nourished, well-developed patient. CARDIOVASCULAR: Regular rate and rhythm without murmurs, gallops, or rubs. RESPIRATORY: Breath sounds equal bilaterally. No accessory muscle use. ABDOMEN/GI: Abdomen soft, non-tender, bowel sounds present. Incision: Clean, dry and intact. Fundus: Firm, non-tender below umbilicus. GENITOURINARY: Light bleeding. EXTREMITIES: No cyanosis or edema, non-tender, without signs of DVT. Medications and IVs Current Medications Medications (Trade) Dose Ordered Sig/Pratik Route Start Time Stop Time Status Last Admin (NS Flush) 2 ml BID IV 12/22/16 09:00 (NS Flush) 2 ml UNSCH PRN IV 12/22/16 04:30 (Mylicon Chew) 80 mg QID PRN PO 12/22/16 04:30 12/24/16 12:44 (Tylenol) 650 mg Q6H PRN PO 12/22/16 04:30 (Motrin) 600 mg Q6H PRN PO 12/22/16 04:30 12/25/16 06:28 (Ambien) 5 mg HS PRN PO 12/22/16 04:30 (Zofran Inj) 4 mg Q6H PRN IV PUSH 12/22/16 04:30 12/22/16 03:21 Benzocaine 1 spray 1 spray Q6H PRN OROPHARYNG 12/22/16 04:45 (fentaNYL 2MCG-BUPIV 0.125% INJ) 100 ml @ 0 mls/hr TITRATE EPIDURAL 12/22/16 07:00 (Preparation H Oint) 1 applic Q6H PRN RECTAL 12/22/16 08:45 (Fawn-Colace) 1 tab BID PRN PO 12/22/16 08:45 (Percocet 5-325 Mg) 2 tab Q4H PRN PO 12/24/16 01:45 12/25/16 06:27 (Oren Arellano MD R2) Assessment/Plan Assessment and Plan 26y/o female who is POD#3 s/p CXN for variable decels -Percocet and Motrin PRN pain. -Encouraged OOB. Advised pelvic rest for 6 wks. Will need a f/u appt. in 1 wk for incision check with Dr. Patel. -Re: ctrl, she would like tubal ligation, and depo-provera in the meantime. Giving shot of depo-provera now. She is not currently , but does have some interest in . Discussed risks and benefits of doing depo-provera now, including theoretical risk of decreased lactogenesis versus benefit of avoiding . - Encourage exclusive -D/c today. (Oren Arellano MD R2) Oren Arellano MD R2 Dec 25, 2016 07:02 Adelaida Oropeza MD Dec 25, 2016 09:22
[2016-12-25] MEDS ORDERED: medroxyPROGESTERone ACETATE SUSP 150 MG/ML SYRINGE IM ONE (10:00)
[2016-12-25 12:10] VITALS: RESP 18
[2016-12-25 13:23] LABS: BATH SALTS (MDPV) UR NEG (NEG); ECSTASY (MDMA) UR NEG (NEG); HEROIN (6-ACETYLMORPHINE) UR NEG (NEG); K2 SPICE UR NEG (NEG); OBMETHADONE UR NEG (NEG); OXYCODONE (PERCODAN) NEG (NEG); PHENCYCLIDINE URINE NEG (NEG)
== END 2016-12-25 14:01 | disposition home or self-care (01) | DRG 765 ==
LOC: HOBED 01:29 → H2EA 01:56 → H1EA 06:14
PROVIDERS: ADMIT Obstetrics & Gynecology; ATTEND Obstetrics & Gynecology
PROC: 10D00Z1 Extraction of Products of Conception, Low, Open Approach (ICD-10-PCS; principal; 2016-12-22)
PROC: 10907ZC Drainage of Amniotic Fluid, Therapeutic from Products of Conception, Via Natural or Artificial Opening (ICD-10-PCS; 2016-12-22)
DX: O76 Abnormality in fetal heart rate and rhythm complicating labor and delivery (principal); O41.03X0 Oligohydramnios, third trimester, not applicable or unspecified; Z37.0 Single live birth; Z3A.39 39 weeks gestation of pregnancy
CPT/HCPCS: 80307; 82805; 85025; 86900; 86901; 87086; 88307; 90715; 99285; G0481; J0131; J0690; J1050; J1885; J2274; J2405; J2590; J7120; Q0163

== ENCOUNTER 2018-01-29 15:22 | Emergency (ER) | payer MEDICAID ==
[~2018-01-29] VITALS: Ht 175.3 cm; Wt 68.0 kg
[~2018-01-29 15:22] MED LIST changes: +CALNTAB; -CEPH-460 PO; +IBUP-232 PO; +OXYC1TAB63 PO; +SENN1TAB PO; +SIME80CH PO; -TERC0.4C2 VAGINAL; +TRICTAB PO
[2018-01-29 15:30] VITALS: BP 166/56; PULSE 83; RESP 16; TEMP 98.5; O2SAT 100
[2018-01-29 16:10] LABS: AUTOMATED NEUTROPHIL # 4.3 TH/MM3 (1.8-7.7); BASOPHIL % 0.6 % (0.0-2.0); EOSINOPHIL # 0.1 TH/MM3 (0-0.4); EOSINOPHIL % 1.2 % (0.0-4.0); HEMOGLOBIN 12.2 GM/DL (11.6-15.3); LYMPH % 25.7 % (9.0-44.0); LYMPHOCYTE # 1.7 TH/MM3 (1.0-4.8); MEAN CELL VOLUME 88.3 FL (80.0-100.0); MEAN PLATELET VOLUME 8.5 FL (7.0-11.0); MONO % 6.8 % (0.0-8.0); MONOCYTE # 0.4 TH/MM3 (0-0.9); NEUT % 65.7 % (16.0-70.0); PLATELET COUNT 247 TH/MM3 (150-450); RED BLOOD COUNT 4.07 MIL/MM3 (4.00-5.30); RED CELL DISTRIBUTION WIDTH 13.9 % (11.6-17.2); WHITE BLOOD COUNT 6.6 TH/MM3 (4.0-11.0)
[2018-01-29 16:25] LABS: AST (GOT) 9 U/L (15-37); BICARBONATE 25.1 MEQ/L (21.0-32.0); BLOOD UREA NITROGEN 7 MG/DL (7-18); CALCIUM 8.5 MG/DL (8.5-10.1); CHLORIDE 106 MEQ/L (98-107); CREATININE 0.59 MG/DL (0.50-1.00); GLOMERULAR FILTRATION RATE 150 ML/MIN (>89); GLUCOSE,RANDOM 58 MG/DL (74-106); SODIUM (NA) 141 MEQ/L (136-145)
[2018-01-29 16:26] LABS: BILIRUBIN, URINE NEG (NEG); BLOOD, URINE NEG (NEG); GLUCOSE,URINE NEG (NEG); KETONE, URINE NEG (NEG); MUCUS URINE FEW /lpf (OCC); NITRITE,URINE NEG (NEG); SQUAMOUS EPITHELIAL CELL URINE 3 /hpf (0-5); URINE COLOR YELLOW (YELLW/STRAW); URINE LEUKOCYTE ESTERASE NEG (NEG)
[2018-01-29 16:29] LABS: ALKALINE PHOSPHATASE 50 U/L (45-117); ALT (GPT) 13 U/L (10-53); TOTAL BILIRUBIN ADULT 0.3 MG/DL (0.2-1.0); TOTAL PROTEIN 7.5 GM/DL (6.4-8.2)
== END 2018-01-29 19:00 | disposition left against medical advice (07) ==
LOC: NED 15:22
DX: R10.30 Lower abdominal pain, unspecified (principal)
CPT/HCPCS: 80053; 81001; 84703; 85025; 99281

== ENCOUNTER 2018-02-09 13:10 | Emergency (ER) | payer MEDICAID ==
[~2018-02-09] VITALS: Ht 175.3 cm; Wt 72.0 kg
[2018-02-09 13:42] VITALS: BP 112/53; PULSE 71; RESP 20; TEMP 99.1; O2SAT 99
[2018-02-09 14:14] LABS: BASOPHIL % 0.5 % (0.0-2.0); EOSINOPHIL % 0.6 % (0.0-4.0); HEMATOCRIT 34.3 % (35.0-46.0); HEMOGLOBIN 12.1 GM/DL (11.6-15.3); LYMPH % 22.6 % (9.0-44.0); LYMPHOCYTE # 1.7 TH/MM3 (1.0-4.8); MEAN CELL VOLUME 88.7 FL (80.0-100.0); MEAN CORPUSCULAR HEMOGLOBIN 31.4 PG (27.0-34.0); MEAN CORPUSCULAR HGB CONC 35.4 % (32.0-36.0); MEAN PLATELET VOLUME 8.5 FL (7.0-11.0); MONOCYTE # 0.6 TH/MM3 (0-0.9); NEUT % 68.3 % (16.0-70.0); PLATELET COUNT 247 TH/MM3 (150-450); RED BLOOD COUNT 3.86 MIL/MM3 (4.00-5.30); RED CELL DISTRIBUTION WIDTH 13.9 % (11.6-17.2); WHITE BLOOD COUNT 7.3 TH/MM3 (4.0-11.0)
[2018-02-09 14:34] LABS: ALBUMIN 3.7 GM/DL (3.4-5.0); AST (GOT) 11 U/L (15-37); BICARBONATE 24.8 MEQ/L (21.0-32.0); BLOOD UREA NITROGEN 5 MG/DL (7-18); CALCIUM 8.6 MG/DL (8.5-10.1); CHLORIDE 105 MEQ/L (98-107); GLOMERULAR FILTRATION RATE 182 ML/MIN (>89); GLUCOSE,RANDOM 83 MG/DL (74-106); SODIUM (NA) 138 MEQ/L (136-145)
[2018-02-09 14:35] LABS: ALT (GPT) 12 U/L (10-53)
[2018-02-09 14:37] LABS: ALKALINE PHOSPHATASE 49 U/L (45-117); TOTAL BILIRUBIN ADULT 0.5 MG/DL (0.2-1.0); TOTAL PROTEIN 7.2 GM/DL (6.4-8.2)
[2018-02-09 15:54] VITALS: BP 130/93; PULSE 88; RESP 18; O2SAT 100
--- NOTE | 2018-02-09 15:56 | PD ---
HPI Chief Complaint: GI Complaint Time Seen by Provider: 15:42 Travel History International Travel<30 days: No Contact w/Intl Traveler<30days: No Traveled to known affect area: No History of Present Illness HPI The patient was seen and examined in the presence of the nurse. This placing complains of nausea and vomiting. Duration 2 days. Severity is moderate. She is not having any diarrhea or abdominal pain or pelvic pain or fever. No alleviating factors. Exacerbating factors. sHe does not think she is . PFSH Past Medical History Medical History: Denies Significant Hx Diminished Hearing: No Immunizations Current: Yes Tetanus Vaccination: < 5 Years Influenza Vaccination: No ?: LMP: NOW Menopausal: No : 4 Para: 3 Miscarriage: 1 : 0 Past Surgical History Surgical History: No Previous Surgery Social History Alcohol Use: No Tobacco Use: No Substance Use: No Allergies-Medications (Allergen,Severity, Reaction): Coded Allergies: No Known Allergies (Verified Adverse Reaction, Unknown, 02/09/18) Reported Meds & Prescriptions Reported Meds & Active Scripts Active Zofran (Ondansetron HCl) 4 Mg Tab 4 Mg PO Q6HR PRN Review of Systems General / Constitutional: No: Fever Eyes: No: Visual changes HENT: No: Headaches Cardiovascular: No: Chest Pain or Discomfort Respiratory: No: Shortness of Breath Gastrointestinal: Positive: Nausea, Vomiting, No: Abdominal Pain Genitourinary: No: Dysuria Musculoskeletal: No: Pain Skin: No Rash Neurologic: No: Weakness Psychiatric: No: Depression Endocrine: No: Polydipsia Hematologic/Lymphatic: No: Easy Bruising Physical Exam Narrative GENERAL: Well-nourished, well-developed patient in no apparent distress. SKIN: Focused skin assessment reveals no rash and nodules. Skin is Warm and dry. HEAD: Atraumatic. Normocephalic. EYES: Pupils equal and round. No scleral icterus. No injection or drainage. ENT: No nasal bleeding or discharge. Mucous membranes pink and moist. NECK: Trachea midline. No JVD. CARDIOVASCULAR: Regular rate and rhythm. No murmur appreciated. RESPIRATORY: No accessory muscle use. Clear to auscultation. Breath sounds equal bilaterally. GASTROINTESTINAL: Abdomen soft, non-tender, nondistended. Hepatic and splenic margins not palpable. MUSCULOSKELETAL: No obvious deformities. No clubbing. No cyanosis. No edema. NEUROLOGICAL: Awake and alert. No obvious cranial nerve deficits. Motor grossly within normal limits. Normal speech. PSYCHIATRIC: Appropriate mood and affect; insight and judgment normal. Data Data Last Documented VS Vital Signs Date Time Temp Pulse Resp B/P (MAP) Pulse Ox O2 Delivery O2 Flow Rate FiO2 02/09/18 15:54 88 18 130/93 (105) 100 Room Air 02/09/18 13:42 99.1 Orders Orders Complete Blood Count With Diff (02/09/18 13:45) Comprehensive Metabolic Panel (02/09/18 13:45) Lipase (02/09/18 13:45) Urinalysis - C+S If Indicated (02/09/18 13:45) Ed Urine Pregnancytest Poc (02/09/18 13:45) Ondansetron Odt (Zofran Odt) (02/09/18 16:00) Labs Laboratory Tests Test 02/09/18 13:55 02/09/18 15:45 White Blood Count 7.3 TH/MM3 Red Blood Count 3.86 MIL/MM3 Hemoglobin 12.1 GM/DL Hematocrit 34.3 % Mean Corpuscular Volume 88.7 FL Mean Corpuscular Hemoglobin 31.4 PG Mean Corpuscular Hemoglobin Concent 35.4 % Red Cell Distribution Width 13.9 % Platelet Count 247 TH/MM3 Mean Platelet Volume 8.5 FL Neutrophils (%) (Auto) 68.3 % Lymphocytes (%) (Auto) 22.6 % Monocytes (%) (Auto) 8.0 % Eosinophils (%) (Auto) 0.6 % Basophils (%) (Auto) 0.5 % Neutrophils # (Auto) 5.0 TH/MM3 Lymphocytes # (Auto) 1.7 TH/MM3 Monocytes # (Auto) 0.6 TH/MM3 Eosinophils # (Auto) 0.0 TH/MM3 Basophils # (Auto) 0.0 TH/MM3 CBC Comment DIFF FINAL Differential Comment Blood Urea Nitrogen 5 MG/DL Creatinine 0.50 MG/DL Random Glucose 83 MG/DL Total Protein 7.2 GM/DL Albumin 3.7 GM/DL Calcium Level 8.6 MG/DL Alkaline Phosphatase 49 U/L Aspartate Amino Transf (AST/SGOT) 11 U/L Alanine Aminotransferase (ALT/SGPT) 12 U/L Total Bilirubin 0.5 MG/DL Sodium Level 138 MEQ/L Potassium Level 3.6 MEQ/L Chloride Level 105 MEQ/L Carbon Dioxide Level 24.8 MEQ/L Anion Gap 8 MEQ/L Estimat Glomerular Filtration Rate 182 ML/MIN Lipase 94 U/L Urine Color YELLOW Urine Turbidity CLEAR Urine pH 6.5 Urine Specific Bruce 1.022 Urine Protein TRACE mg/dL Urine Glucose (UA) NEG mg/dL Urine Ketones NEG mg/dL Urine Occult Blood NEG Urine Nitrite NEG Urine Bilirubin NEG Urine Urobilinogen LESS THAN 2.0 MG/DL Urine Leukocyte Esterase NEG Urine WBC LESS THAN 1 /hpf Urine Squamous Epithelial Cells <1 /hpf Urine Mucus FEW /lpf Microscopic Urinalysis Comment CULT NOT INDICATED MDM Medical Decision Making Medical Screen Exam Complete: Yes Emergency Medical Condition: Yes Medical Record Reviewed: Yes Differential Diagnosis Gastroenteritis, vomiting of , dehydration Narrative Course I have reviewed the patient's electronic medical record. Patient's CBC and metabolic profiles are normal Urine is positive Urinalysis is clean I gave her dose of Zofran Patient would like prescription for nausea medicine if needed. Discussed risk of Zofran and she is willing to accept this and wants the prescription. Needs care follow-up Diagnosis Primary Impression: Nausea and vomiting during Additional Instructions: The patient was advised to follow up with their physician and return if they worsen. Med/Other Pt SpecificInfo: Other Scripts Ondansetron (Zofran) 4 Mg Tab 4 MG PO Q6HR Y for NAUSEA OR VOMITING, #15 TAB 0 Refills Prov: Gallito Perez MD 02/09/18 Disposition: 01 DISCHARGE HOME Condition: Stable Gallito Perez MD Feb 09, 2018 15:56
[2018-02-09] MEDS ORDERED: ONDANSETRON ODT 4 MG TAB PO ONE (16:00)
[2018-02-09 16:14] LABS: BILIRUBIN, URINE NEG (NEG); BLOOD, URINE NEG (NEG); GLUCOSE,URINE NEG (NEG); KETONE, URINE NEG (NEG); MUCUS URINE FEW /lpf (OCC); NITRITE,URINE NEG (NEG); PH, URINE 6.5 (5.0-8.5); SQUAMOUS EPITHELIAL CELL URINE <1 /hpf (0-5); URINE COLOR YELLOW (YELLW/STRAW); URINE LEUKOCYTE ESTERASE NEG (NEG)
[2018-02-09] MEDS ORDERED: ZOFR4TAB PO (16:36)
[2018-02-09 17:16] VITALS: BP 101/59
== END 2018-02-09 17:17 | disposition home or self-care (01) ==
LOC: NEPD 13:10
DX: O21.9 Vomiting of pregnancy, unspecified (principal); Z3A.00 Weeks of gestation of pregnancy not specified
CPT/HCPCS: 80053; 81001; 83690; 84703; 85025; 99283

== ENCOUNTER 2018-02-20 16:01 | Emergency (ER) | payer MEDICAID ==
[~2018-02-20] VITALS: Ht 175.3 cm; Wt 73.0 kg
[~2018-02-20 16:01] MED LIST changes: -CALNTAB; -IBUP-232 PO; -OXYC1TAB63 PO; -SENN1TAB PO; -SIME80CH PO; -TRICTAB PO; +ZOFR4TAB PO
[2018-02-20 16:16] VITALS: BP 100/56; PULSE 83; RESP 16; TEMP 99.3; O2SAT 99
[2018-02-20 17:07] LABS: AUTOMATED NEUTROPHIL # 5.7 TH/MM3 (1.8-7.7); BASOPHIL % 0.4 % (0.0-2.0); EOSINOPHIL % 0.5 % (0.0-4.0); HEMATOCRIT 35.8 % (35.0-46.0); HEMOGLOBIN 12.5 GM/DL (11.6-15.3); LYMPH % 18.2 % (9.0-44.0); LYMPHOCYTE # 1.4 TH/MM3 (1.0-4.8); MEAN CELL VOLUME 88.3 FL (80.0-100.0); MEAN CORPUSCULAR HEMOGLOBIN 30.8 PG (27.0-34.0); MEAN CORPUSCULAR HGB CONC 34.9 % (32.0-36.0); MEAN PLATELET VOLUME 8.6 FL (7.0-11.0); MONOCYTE # 0.5 TH/MM3 (0-0.9); NEUT % 74.9 % (16.0-70.0); PLATELET COUNT 272 TH/MM3 (150-450); RED BLOOD COUNT 4.05 MIL/MM3 (4.00-5.30); RED CELL DISTRIBUTION WIDTH 13.8 % (11.6-17.2); WHITE BLOOD COUNT 7.6 TH/MM3 (4.0-11.0)
[2018-02-20 17:32] LABS: ALT (GPT) 10 U/L (10-53); AST (GOT) 7 U/L (15-37); BICARBONATE 25.1 MEQ/L (21.0-32.0); BLOOD UREA NITROGEN 6 MG/DL (7-18); CALCIUM 8.6 MG/DL (8.5-10.1); CHLORIDE 103 MEQ/L (98-107); GLOMERULAR FILTRATION RATE 182 ML/MIN (>89); GLUCOSE,RANDOM 92 MG/DL (74-106); SODIUM (NA) 137 MEQ/L (136-145)
[2018-02-20 17:47] LABS: ALKALINE PHOSPHATASE 47 U/L (45-117); TOTAL BILIRUBIN ADULT 0.7 MG/DL (0.2-1.0); TOTAL PROTEIN 7.8 GM/DL (6.4-8.2)
== END 2018-02-20 19:04 | disposition left against medical advice (07) ==
LOC: NED 16:01
DX: Z53.21 Procedure and treatment not carried out due to patient leaving prior to being seen by health care provider (principal)
CPT/HCPCS: 80053; 84702; 85025; 99281

== ENCOUNTER 2018-04-01 20:32 | Emergency (ER) | payer MEDICAID ==
[2018-04-01 20:55] VITALS: BP 117/64; PULSE 84; RESP 16; TEMP 98.6; O2SAT 100
[2018-04-01 21:02] VITALS: BP 118/71; PULSE 80; RESP 20; TEMP 98; O2SAT 100
--- NOTE | 2018-04-01 21:09 | PD ---
HPI Chief Complaint: Related Problem Time Seen by Provider: 21:01 Travel History International Travel<30 days: No Contact w/Intl Traveler<30days: No Traveled to known affect area: No History of Present Illness HPI Patient is a 27-year-old female presenting to emerge from for evaluation of abdominal cramping and spotting in . Patient states she is approximately 11 weeks . She states that she has had cramping for the last 2-3 weeks. She had an episode of spotting last week, bright red blood which resolved on its own. She states the pain is intermittent, a 7 out of 10 and was worse today which prompted her coming to the emergency department. Patient states she has had spotting of bright red blood again today. She has not had any care to this point. She denies any fevers, chills, shortness of breath, chest pain, dysuria. He describes the pain as cramping, consistent with menstrual cramping but more intense. PFSH Past Medical History Medical History: Denies Significant Hx Diminished Hearing: No Immunizations Current: Yes Tetanus Vaccination: < 5 Years Influenza Vaccination: Yes ?: LMP: 01/15/2018 Menopausal: No : 4 Para: 3 Miscarriage: 1 : 0 Past Surgical History Surgical History: No Previous Surgery Social History Alcohol Use: No Tobacco Use: No Substance Use: No Allergies-Medications (Allergen,Severity, Reaction): Coded Allergies: No Known Allergies (Verified Adverse Reaction, Unknown, 04/01/18) Reported Meds & Prescriptions Reported Meds & Active Scripts Active Plus Iron 29-1 mg ( Vit-Iron Carbonyl) 29 Mg Iron-1 Mg Tab 1 Tab PO DAILY Review of Systems Except as stated in HPI: all other systems reviewed are Neg General / Constitutional: No: Fever, Chills HENT: No: Headaches Cardiovascular: No: Chest Pain or Discomfort Respiratory: No: Shortness of Breath Gastrointestinal: Positive: Abdominal Pain (Cramping) Genitourinary: Positive: Pelvic Pain, Vaginal Bleeding, No: Dysuria Musculoskeletal: No: Myalgias Neurologic: No: Dizziness Physical Exam Narrative GENERAL: Well-developed, well-nourished, alert -[place] female. Appears uncomfortable, no acute distress. SKIN: Warm and dry. HEAD: Atraumatic. Normocephalic. EYES: Pupils equal and round. No scleral icterus. No injection or drainage. ENT: No nasal bleeding or discharge. Mucous membranes pink and moist. NECK: Trachea midline. No JVD. CARDIOVASCULAR: Regular rate and rhythm. RESPIRATORY: No accessory muscle use. Clear to auscultation. Breath sounds equal bilaterally. GENITOURINARY: Normal external genitalia without lesions or erythema. Vaginal vault without blood. Thick white discharge noted in the vaginal vault Cervical os was closed without drainage. No cervical motion tenderness. Uterus nontender and nonenlarged. Bilateral adnexa nontender without masses. GASTROINTESTINAL: Abdomen soft, tender to palpation suprapubic region. Nondistended. Hepatic and splenic margins not palpable. Positive bowel sounds, no rebound, no guarding. MUSCULOSKELETAL: Extremities without clubbing, cyanosis, or edema. No obvious deformities. NEUROLOGICAL: Awake and alert. No obvious cranial nerve deficits. Motor grossly within normal limits. Five out of 5 muscle strength in the arms and legs. Normal speech. PSYCHIATRIC: Appropriate mood and affect; insight and judgment normal. Data Data Last Documented VS Vital Signs Date Time Temp Pulse Resp B/P (MAP) Pulse Ox O2 Delivery O2 Flow Rate FiO2 04/01/18 23:00 20 04/01/18 21:02 98.0 80 118/71 (87) 100 Room Air Orders Orders Beta Hcg (Quant/Titer) (04/01/18 21:05) Complete Blood Count With Diff (04/01/18 21:05) Basic Metabolic Panel (Bmp) (04/01/18 21:05) Gc And Chlamydia Pcr (04/01/18 21:05) Complete Rh (04/01/18 21:05) Wet Prep Profile (04/01/18 21:05) Urinalysis - C+S If Indicated (04/01/18 21:05) Iv Access Insert/Monitor (04/01/18 21:05) Sodium Chloride 0.9% Flush (Ns Flush) (04/01/18 21:15) Acetaminophen (Tylenol) (04/01/18 21:45) Ed Discharge Order (04/01/18 23:42) Labs Laboratory Tests Test 04/01/18 21:35 04/01/18 21:40 04/01/18 22:45 White Blood Count 7.7 TH/MM3 Red Blood Count 4.14 MIL/MM3 Hemoglobin 12.7 GM/DL Hematocrit 36.4 % Mean Corpuscular Volume 87.8 FL Mean Corpuscular Hemoglobin 30.6 PG Mean Corpuscular Hemoglobin Concent 34.8 % Red Cell Distribution Width 13.6 % Platelet Count 266 TH/MM3 Mean Platelet Volume 8.4 FL Neutrophils (%) (Auto) 67.2 % Lymphocytes (%) (Auto) 26.1 % Monocytes (%) (Auto) 5.7 % Eosinophils (%) (Auto) 0.7 % Basophils (%) (Auto) 0.3 % Neutrophils # (Auto) 5.2 TH/MM3 Lymphocytes # (Auto) 2.0 TH/MM3 Monocytes # (Auto) 0.4 TH/MM3 Eosinophils # (Auto) 0.1 TH/MM3 Basophils # (Auto) 0.0 TH/MM3 CBC Comment DIFF FINAL Differential Comment Blood Urea Nitrogen 7 MG/DL Creatinine 0.52 MG/DL Random Glucose 85 MG/DL Calcium Level 8.4 MG/DL Sodium Level 139 MEQ/L Potassium Level 3.5 MEQ/L Chloride Level 104 MEQ/L Carbon Dioxide Level 26.7 MEQ/L Anion Gap 8 MEQ/L Estimat Glomerular Filtration Rate 174 ML/MIN Human Chorionic Gonadotropin, Quant 25957 MIU/ML Urine Color YELLOW Urine Turbidity CLEAR Urine pH 6.0 Urine Specific [place] 1.031 Urine Protein TRACE mg/dL Urine Glucose (UA) NEG mg/dL Urine Ketones NEG mg/dL Urine Occult Blood NEG Urine Nitrite NEG Urine Bilirubin NEG Urine Urobilinogen 4.0 MG/DL Urine Leukocyte Esterase LARGE Urine RBC LESS THAN 1 /hpf Urine WBC 1 /hpf Urine Squamous Epithelial Cells 2 /hpf Urine Mucus FEW /lpf Microscopic Urinalysis Comment CULT NOT INDICATED Clue Cells (Wet Prep) NONE SEEN Vaginal Trichomonas (Wet Prep) NONE SEEN Vaginal Yeast (Wet Prep) NONE SEEN MDM Medical Decision Making Medical Screen Exam Complete: Yes Emergency Medical Condition: Yes Interpretation(s) Vital Signs Date Time Temp Pulse Resp B/P (MAP) Pulse Ox O2 Delivery O2 Flow Rate FiO2 04/01/18 21:02 98.0 80 20 118/71 (87) 100 Room Air 04/01/18 20:55 98.6 84 16 117/64 (81) 100 Differential Diagnosis Spontaneous miscarriage versus threatened miscarriage versus normal versus UTI versus STD Narrative Course Patient is a 27-year-old female presenting to emergency department for evaluation of abdominal cramping and intermittent vaginal bleeding during . Vital signs are stable, labs imaging ordered and pending. Patient was given acetaminophen for pain. anaesthetic technician attempted to do a bedside ultrasound however the fetus measured 15 weeks 1 day she wondered unofficially. Bedside ultrasound was performed, the fetus was moving, heart tones detected. CBC with no acute findings HCG 34,425 Chemistry is unremarkable Urinalysis is unremarkable Wet prep is negative GC and Chlamydia are pending. Treatment will be deferred until test results. Patient is advised to follow-up with attending urologist in 1 week. She was advised on pelvic rest. She was also encouraged to return to emergency department any new or worsening symptoms. She verbalized understanding of instructions. Patient stable for discharge. Upon discharge patient complained of a toothache. Patient was assessed, she reports pain in the left upper first molar. No obvious signs of infection however patient was given a prescription for amoxicillin. Diagnosis Primary Impression: Qualified Codes: Z3A.15 - 15 weeks gestation of Additional Impression: Dental infection Referrals: Electronic Specialist 1 week Patient Instructions: General Instructions, at 15 to 18 Weeks (DC) Additional Instructions: Follow-up with your attending urologist in 1 week Pelvic rest until cleared by attending urologist Take vitamins as directed Return to emergency department for any new worsening symptoms Med/Other Pt SpecificInfo: Prescription(s) given Scripts Amoxicillin (Amoxicillin) 875 Mg Tab 875 MG PO BID for Infection for 10 Days, #20 TAB 0 Refills Prov: Fabi Gillette 04/02/18 Vit-Iron Carbonyl ( Plus Iron 29-1 mg) 29 Mg Iron-1 Mg Tab 1 TAB PO DAILY for Nutritional Supplement, #30 TAB 0 Refills Prov: Fabi Gillette 04/01/18 Disposition: 01 DISCHARGE HOME Condition: Stable Fabi Gillette April 01, 2018 21:09
[2018-04-01] MEDS ORDERED: SODIUM CHLORIDE 0.9% FLUSH 10 ML FLUSH IVF PRN (21:15)
[2018-04-01] MEDS ORDERED: ACETAMINOPHEN 325 MG TAB PO ONE (21:45)
[2018-04-01 21:52] LABS: AUTOMATED NEUTROPHIL # 5.2 TH/MM3 (1.8-7.7); BASOPHIL % 0.3 % (0.0-2.0); EOSINOPHIL # 0.1 TH/MM3 (0-0.4); EOSINOPHIL % 0.7 % (0.0-4.0); HEMATOCRIT 36.4 % (35.0-46.0); HEMOGLOBIN 12.7 GM/DL (11.6-15.3); LYMPH % 26.1 % (9.0-44.0); MEAN CELL VOLUME 87.8 FL (80.0-100.0); MEAN CORPUSCULAR HEMOGLOBIN 30.6 PG (27.0-34.0); MEAN CORPUSCULAR HGB CONC 34.8 % (32.0-36.0); MEAN PLATELET VOLUME 8.4 FL (7.0-11.0); MONO % 5.7 % (0.0-8.0); MONOCYTE # 0.4 TH/MM3 (0-0.9); NEUT % 67.2 % (16.0-70.0); PLATELET COUNT 266 TH/MM3 (150-450); RED BLOOD COUNT 4.14 MIL/MM3 (4.00-5.30); RED CELL DISTRIBUTION WIDTH 13.6 % (11.6-17.2); WHITE BLOOD COUNT 7.7 TH/MM3 (4.0-11.0)
[2018-04-01 21:58] LABS: BILIRUBIN, URINE NEG (NEG); BLOOD, URINE NEG (NEG); GLUCOSE,URINE NEG (NEG); KETONE, URINE NEG (NEG); MUCUS URINE FEW /lpf (OCC); NITRITE,URINE NEG (NEG); SQUAMOUS EPITHELIAL CELL URINE 2 /hpf (0-5); URINE COLOR YELLOW (YELLW/STRAW); URINE LEUKOCYTE ESTERASE LARGE (NEG)
[2018-04-01 22:17] LABS: BICARBONATE 26.7 MEQ/L (21.0-32.0); CALCIUM 8.4 MG/DL (8.5-10.1); CREATININE 0.52 MG/DL (0.50-1.00)
[2018-04-01 23:00] VITALS: RESP 20
[2018-04-01] MEDS ORDERED: PREN29TA PO (23:41)
--- NOTE | 2018-04-01 23:47 | PD ---
Data Data Last Documented VS Vital Signs Date Time Temp Pulse Resp B/P (MAP) Pulse Ox O2 Delivery O2 Flow Rate FiO2 04/01/18 23:00 20 04/01/18 21:02 98.0 80 118/71 (87) 100 Room Air Orders Orders Beta Hcg (Quant/Titer) (04/01/18 21:05) Complete Blood Count With Diff (04/01/18 21:05) Basic Metabolic Panel (Bmp) (04/01/18 21:05) Gc And Chlamydia Pcr (04/01/18 21:05) Complete Rh (04/01/18 21:05) Wet Prep Profile (04/01/18 21:05) Urinalysis - C+S If Indicated (04/01/18 21:05) Iv Access Insert/Monitor (04/01/18 21:05) Sodium Chloride 0.9% Flush (Ns Flush) (04/01/18 21:15) Acetaminophen (Tylenol) (04/01/18 21:45) Ed Discharge Order (04/01/18 23:42) Labs Laboratory Tests Test 04/01/18 21:35 04/01/18 21:40 04/01/18 22:45 White Blood Count 7.7 TH/MM3 Red Blood Count 4.14 MIL/MM3 Hemoglobin 12.7 GM/DL Hematocrit 36.4 % Mean Corpuscular Volume 87.8 FL Mean Corpuscular Hemoglobin 30.6 PG Mean Corpuscular Hemoglobin Concent 34.8 % Red Cell Distribution Width 13.6 % Platelet Count 266 TH/MM3 Mean Platelet Volume 8.4 FL Neutrophils (%) (Auto) 67.2 % Lymphocytes (%) (Auto) 26.1 % Monocytes (%) (Auto) 5.7 % Eosinophils (%) (Auto) 0.7 % Basophils (%) (Auto) 0.3 % Neutrophils # (Auto) 5.2 TH/MM3 Lymphocytes # (Auto) 2.0 TH/MM3 Monocytes # (Auto) 0.4 TH/MM3 Eosinophils # (Auto) 0.1 TH/MM3 Basophils # (Auto) 0.0 TH/MM3 CBC Comment DIFF FINAL Differential Comment Blood Urea Nitrogen 7 MG/DL Creatinine 0.52 MG/DL Random Glucose 85 MG/DL Calcium Level 8.4 MG/DL Sodium Level 139 MEQ/L Potassium Level 3.5 MEQ/L Chloride Level 104 MEQ/L Carbon Dioxide Level 26.7 MEQ/L Anion Gap 8 MEQ/L Estimat Glomerular Filtration Rate 174 ML/MIN Human Chorionic Gonadotropin, Quant 19097 MIU/ML Urine Color YELLOW Urine Turbidity CLEAR Urine pH 6.0 Urine Specific [place] 1.031 Urine Protein TRACE mg/dL Urine Glucose (UA) NEG mg/dL Urine Ketones NEG mg/dL Urine Occult Blood NEG Urine Nitrite NEG Urine Bilirubin NEG Urine Urobilinogen 4.0 MG/DL Urine Leukocyte Esterase LARGE Urine RBC LESS THAN 1 /hpf Urine WBC 1 /hpf Urine Squamous Epithelial Cells 2 /hpf Urine Mucus FEW /lpf Microscopic Urinalysis Comment CULT NOT INDICATED Clue Cells (Wet Prep) NONE SEEN Vaginal Trichomonas (Wet Prep) NONE SEEN Vaginal Yeast (Wet Prep) NONE SEEN MDM Supervised Visit with YUN: Yes Narrative Course I, Dr. Perez, have reviewed the advance practice practitioner's documentation and am in agreement, met with the patient face to face, made the diagnosis, and the medical decision making was done by me. *My assessment and Findings: Patient reports that she is having some spotting and abdominal cramping. Extensive workup was done. On bedside ultrasound she has a IUP with good heart rate and movement Ectopic is ruled out Other workup is negative including labs and urine studies and wet prep Stable for outpatient OB follow-up Diagnosis Primary Impression: Threatened affecting intrauterine Referrals: Wildlife Conservation Officer 1 week Patient Instructions: General Instructions, at 15 to 18 Weeks (DC) Additional Instruction: Follow-up with your pot puller in 1 week Pelvic rest until cleared by pot puller Take vitamins as directed Return to emergency department for any new worsening symptoms Scripts Vit-Iron Carbonyl ( Plus Iron 29-1 mg) 29 Mg Iron-1 Mg Tab 1 TAB PO DAILY for Nutritional Supplement, #30 TAB 0 Refills Prov: Fabi Gillette PHILATELIC CONSULTANT 04/01/18 Disposition: 01 DISCHARGE HOME Condition: Stable Gallito Perez MD April 01, 2018 23:47
[2018-04-02] MEDS ORDERED: AMOX875T PO (00:02)
== END 2018-04-02 00:19 | disposition home or self-care (01) ==
LOC: NEPD 20:32
DX: O20.0 Threatened abortion (principal); O99.612 Diseases of the digestive system complicating pregnancy, second trimester; K04.7 Periapical abscess without sinus; Z3A.15 15 weeks gestation of pregnancy
CPT/HCPCS: 80048; 81001; 84702; 85025; 87210; 87491; 87591; 99283

== ENCOUNTER → 2018-05-13 | Outpatient (CLI) | payer MEDICAID ==
[~2018-05-13] MED LIST changes: +AMOX875T PO; +PREN29TA PO; -ZOFR4TAB PO
== END ==
LOC: HPND 13:31
PROVIDERS: ATTEND Family Medicine
DX: Z36.3 Encounter for antenatal screening for malformations (principal); O26.842 Uterine size-date discrepancy, second trimester
CPT/HCPCS: 76805

== ENCOUNTER 2018-09-09 03:25 | Inpatient (IN) ==
[2018-09-09] MEDS ORDERED: ceFAZolin 2 GM Premix Inj 2 GM/50 ML PIGGYBACK IV.SIG PRN (04:11)
[2018-09-09 04:14] LABS: Baso # (Auto) 0.1 th/mm3 (0.0-0.2); Baso % (Auto) 0.6 % (0.0-2.0); Eos # (Auto) 0.1 th/mm3 (0.0-0.4); Eos % (Auto) 0.7 % (0.0-4.0); Hematocrit 30.5 % (35.0-46.0); Hemoglobin 10.2 gm/dL (11.6-15.3); Lymph # (Auto) 1.7 th/mm3 (1.0-4.8); Lymph % (Auto) 17.1 % (9.0-44.0); Mean Corpuscular HGB Conc 33.6 % (32.0-36.0); Mean Corpuscular Hemoglobin 29.7 pg (27.0-34.0); Mean Corpuscular Volume 88.5 fL (80.0-100.0); Mean Platelet Volume 8.2 fL (7.0-11.0); Mono # (Auto) 0.7 th/mm3 (0.0-0.9); Mono % (Auto) 7.5 % (0.0-8.0); Neut # (Auto) 7.3 th/mm3 (1.8-7.7); Neut % (Auto) 74.1 % (16.0-70.0); Platelet Count 232 th/mm3 (150-450); Red Blood Count 3.44 mil/mm3 (4.00-5.30); Red Cell Distribution Width 13.7 % (11.6-17.2); White Blood Count 9.8 th/mm3 (4.0-11.0)
[2018-09-09] MEDS ORDERED: Citric Acid/Sodium Citrate Liq 30 ML UDC PO SCH ×2 (04:15→04:30)
--- NOTE | 2018-09-09 04:24 | ED ---
History of Present Illness Primary Care Physician: UNKNOWN Chief Complaint: Leaking fluid History of Present Illness: 27 year old at 38/2 weeks gestation presented to the ED due to leakage of fluid. Endorses irregular contractions. Reports + movements. She reports leakage of fluid since about 03:30 this AM. Denies fevers or urinary symptoms. Otherwise does not have specific complaints or concerns. Weeks Gestation:: 38 Para: 4 : 6 - Inpatient Certification I certify that the inpatient services were ordered in accordance with Medicare regulations governing the order. This includes certification that hospital inpatient services are reasonable and necessary and in the case of services not specified as inpatient-only under 42 CFR 419.22(n), that they are appropriately provided as inpatient services in accordance to with the 2-midnight benchmark under 43 CFR 412.3(e) Review of Systems All other systems reviewed negative except as stated in HPI PMFSH - History History Provided By: Patient - Medical History Medical History: Medical History (Last Reviewed 08/14/18 @ 03:19 by Karlee Givens MD) Patient denies medical problems - Surgical History Surgical History: Surgical History (Last Reviewed 08/14/18 @ 03:19 by Karlee Givens MD) History of - Tobacco History Second Hand Smoke Exposure: No Smoking Status: Never smoker - Alcohol History How Often Do You Have a Drink Containing Alcohol: Never - Substance Use History Substance History: No History of Abuse - Travel History History of Recent Travel: No Medications and Allergies Active Medications: Active Medications Citric Acid/Sodium Citrate (Sodium Citrate/Citric Acid Liq) 30 ml PO RADIOLOGIST DIAGNOSTIC ELSA Stop: 09/13/18 04:14 Cefazolin Sodium/Dextrose (Ancef 2 Gm Premix Inj) 2 gm in 50 mls @ 100 mls/hr IV.SIG RADIOLOGIST DIAGNOSTIC PRN PRN Reason: TO OR Stop: 09/13/18 04:10 Lactated Ringer's (Lr 1000 Ml Inj) 1,000 mls @ 150 mls/hr IV.CONT .Q6H40M ELSA Lactated Ringer's (Lr 1000 Ml Inj) 1,000 mls @ 2,000 mls/hr IV.SIG .Q30M ONE Stop: 09/09/18 04:40 Allergies Allergy/AdvReac Type Severity Reaction Status Date / Time No Known Allergies Allergy Verified 08/14/18 00:50 Home Medications Medication Instructions Recorded Confirmed Type prenat.vits,elizabeth,[id number]-[id number] 1 tab PO DAILY 08/14/18 08/14/18 History [ Vitamin] Exam Vital signs: Vital Signs 09/09/18 03:39 09/09/18 03:40 Temperature 98.4 F Pulse Rate 79 Respiratory Rate 18 Blood Pressure 124/67 Narrative: GENERAL: Well-nourished, well-developed patient. SKIN: Warm and dry. HEAD: Normocephalic and atraumatic. EYES: No scleral icterus. No injection or drainage. ENT: No nasal drainage noted. Mucous membranes pink. Airway patent. NECK: Supple, trachea midline. No JVD. CARDIOVASCULAR: Regular rate and rhythm without murmurs, gallops, or rubs. RESPIRATORY: Breath sounds equal bilaterally. No accessory muscle use. ABDOMEN/GI: Abdomen soft, non-tender, bowel sounds present, no rebound, no guarding Gravid to 38 weeks size GENITOURINARY: External Genitalia: intact and normal in appearance Cervix: [-] Dilatation: 2cm Effacement: 60% Station: -3 Presentation: vertex Membranes: ruptured Uterine Contractions: q3-5 minutes FHT's: Category: I Baseline: 120s Reactive: +accels Variability: moderate Decels: none noted EXTREMITIES: No cyanosis or edema. BACK: Nontender without obvious deformity. No CVA tenderness. NEUROLOGICAL: Awake and alert. Motor and sensory grossly within normal limits. Normal speech. Results - Labs CBC & Chem 7: 09/09/18 03:55 Labs: Laboratory Results - last 24 hr 09/09/18 03:55 WBC 9.8 RBC 3.44 L Hgb 10.2 L Hct 30.5 L MCV 88.5 MCH 29.7 MCHC 33.6 RDW 13.7 Plt Count 232 D MPV 8.2 Neut % (Auto) 74.1 H Lymph % (Auto) 17.1 [place] % (Auto) 7.5 Eos % (Auto) 0.7 Baso % (Auto) 0.6 Neut # (Auto) 7.3 Lymph # (Auto) 1.7 [place] # (Auto) 0.7 Eos # (Auto) 0.1 Baso # (Auto) 0.1 WBC Differential . Differential Comment Auto diff final Assessment and Plan - Diagnosis (1) (vaginal after ) Code(s): O34.219 - Maternal care for unspecified type scar from previous delivery Status: Acute (2) SROM (spontaneous rupture of membranes) Status: Acute (3) 38 weeks gestation of Code(s): Z3A.38 - 38 weeks gestation of Status: Acute (4) Insufficient care in third trimester Code(s): O09.33 - Supervision of with insufficient care, third trimester Status: Acute - Plan 27 year old at 38/2 weeks gestation presented s/p SROM. 1. Previous , desires - The patient presented following leakage of fluid earlier this morning. Patient desired repeat cesarian section with bilateral tubal ligation however the proper documentation and consent for a tubal ligation was not obtained from the patient. She had desired a repeat cesarian section with the primary purpose to perform a tubal ligation. The patient was then counseled and given her options, and allowed ample time to discuss these options with her family. Patient opted to proceed with a . - Cervix: 60/-3, vertex - Category I tracing - Patient desiring epidural - GBS unknown, will start antibiotics empirically as she is ruptured - Start pitocin at 11-30-29 2. Ruptured, gross leakage of fluid 3. Insufficient care - Patient had missed her last three visits as an outpatient with a total of only five visits in total, also did not obtain labs despite multiple recommendations to do so - Will obtain labs at this time, patient verbally consented to be tested for HIV sdw Dr. Salvador and Dr. Sellers Discharge Plan - Discharge Disposition Patient Disposition: 01 Discharge Home - Physicians Team Primary Care Provider: UNKNOWN, Attending Provider: Isabell Salvador - Rxs /Orders / Referrals /Forms Prescriptions: No Action nitrofurantoin monohyd/m-cryst [Macrobid] 100 mg Capsule 100 mg PO Q12H Qty: 10 RF: 0 nitrofurantoin monohyd/m-cryst [Macrobid] 100 mg Capsule 100 mg PO Q12H Qty: 10 RF: 0 prenat.vits,elizabeth,[id number] [ Vitamin] Tablet 1 tab PO DAILY terconazole 0.8 % Cream See Label Instructions .ROUTE .COMPLEX Qty: 30 RF: 0 terconazole 0.8 % Cream See Label Instructions .ROUTE .COMPLEX Qty: 30 RF: 0 Referrals: UNKNOWN, [Primary Care Provider] - See Instructions
[2018-09-09] MEDS ORDERED: Lidocaaine 1.5%/Epinephrine 1:200,000 PF Inj 5 ML Amp ONE (04:26)
[2018-09-09] MEDS ORDERED: Lidocaine PF 1% Inj 5 ML Vial ONE (04:26)
[2018-09-09] MEDS ORDERED: Sod Chloride 0.9% Inj 1,000 ML IV.CONT PRN (04:28)
[2018-09-09] MEDS ORDERED: Sodium Chlor 0.9% Inj 500 ML IV.SIG PRN (04:28)
[2018-09-09] MEDS ORDERED: Naloxone Inj 0.4 MG/ML Vial IV.PUSH PRN (04:28)
[2018-09-09] MEDS ORDERED: fentaNYL Citrate Inj 100 MCG/2 ML Ampul IV.PUSH PRN ×2 (04:28)
[2018-09-09] MEDS ORDERED: fentaNYL 2MCG-Bupiv 0.125% Epi 150 ML EPIDURAL ONE (04:28)
[2018-09-09] MEDS ORDERED: Oxytocin 30 Units/500ml Premix 30 UNITS/500 ML BAG IV.SIG ONE (04:28)
[2018-09-09] MEDS ORDERED: Oxytocin 30 Units/500ml Premix 30 UNITS/500 ML BAG IV.SIG PRN (04:33)
[2018-09-09] MEDS ORDERED: Penicillin G Potassium Inj 5,000,000 UNIT in Sodium Chloride 0.9% Inj 100 ML IV.SIG ONE (04:58)
--- NOTE | 2018-09-09 05:01 | P.HPOB ---
History of Present Illness Primary Care Physician: UNKNOWN Chief Complaint: Leaking fluid History of Present Illness: 27 year old at 38/2 weeks gestation presented to the ED due to leakage of fluid. Endorses irregular contractions. Reports + movements. She reports leakage of fluid since about 03:30 this AM. Denies fevers or urinary symptoms. Otherwise does not have specific complaints or concerns. Weeks Gestation:: 38 - Inpatient Certification I certify that the inpatient services were ordered in accordance with Medicare regulations governing the order. This includes certification that hospital inpatient services are reasonable and necessary and in the case of services not specified as inpatient-only under 42 CFR 419.22(n), that they are appropriately provided as inpatient services in accordance to with the 2-midnight benchmark under 43 CFR 412.3(e) Estimated Total Length of Stay (Days): 2 Plans for Post Hospital Care: Home [facility] - History History Provided By: Patient - Medical History Medical History: Medical History (Last Reviewed 08/14/18 @ 03:19 by Karlee Givens MD) Patient denies medical problems - Surgical History Surgical History: Surgical History (Last Reviewed 08/14/18 @ 03:19 by Karlee Givens MD) History of - Tobacco History Second Hand Smoke Exposure: No Smoking Status: Never smoker - Alcohol History How Often Do You Have a Drink Containing Alcohol: Never - Substance Use History Substance History: No History of Abuse - Travel History History of Recent Travel: No Medications and Allergies Active Medications: Active Medications Citric Acid/Sodium Citrate (Sodium Citrate/Citric Acid Liq) 30 ml PO [facility] [facility] Stop: 09/13/18 04:14 Citric Acid/Sodium Citrate (Sodium Citrate/Citric Acid Liq) 30 ml PO [facility] [facility] Stop: 09/13/18 04:29 Fentanyl Citrate (Fentanyl Inj) 50 mcg IV.PUSH Q1H PRN PRN Reason: Pain Scale 3 - 5 Fentanyl Citrate (Fentanyl Inj) 100 mcg IV.PUSH Q1H PRN PRN Reason: PAIN SCALE 6 TO 10 Lactated Ringer's (Lr 1000 Ml Inj) 1,000 mls @ 150 mls/hr IV.CONT .Q6H40M [facility] Lactated Ringer's (Lr 1000 Ml Inj) 1,000 mls @ 3,000 mls/hr IV.SIG UNSCH PRN PRN Reason: compromise or epidural Sodium Chloride (Ns Inj) 500 mls @ 1,000 mls/hr IV.SIG UNSCH PRN PRN Reason: SEE LABEL COMMENTS Sodium Chloride (Ns Inj) 1,000 mls @ 100 mls/hr IV.CONT .Q10H PRN PRN Reason: SEE LABEL COMMENTS Lactated Ringer's (Lr 1000 Ml Inj) 1,000 mls @ 125 mls/hr IV.CONT .Q8H ELSA Oxytocin (Pitocin 30 Units/Ns 500 Ml Premix) 30 units in 500 mls @ 1 mls/hr IV.SIG TITRATE PRN; Protocol PRN Reason: For induction of labor Lidocaine HCl (Xylocaine 1% Inj) 0.1 ml I-DERMAL PRN PRN PRN Reason: For IV start Stop: 09/12/18 04:27 Lidocaine HCl (Xylocaine 1% Inj) 10 ml INFILTRATN PRN PRN PRN Reason: For episiotomy repair Stop: 09/11/18 04:27 Mineral Oil (Muri-Lube Oil) 10 ml TOPICAL PRN PRN PRN Reason: PRN perineal massage Naloxone HCl (Narcan Inj) 0.1 mg IV.PUSH Q2M PRN PRN Reason: for opiate reversal Allergies Allergy/AdvReac Type Severity Reaction Status Date / Time No Known Allergies Allergy Verified 08/14/18 00:50 Home Medications Medication Instructions Recorded Confirmed Type prenat.vits,elizabeth,[id number] 1 tab PO DAILY 08/14/18 08/14/18 History [ Vitamin] Exam Vital signs: Vital Signs 09/09/18 03:39 09/09/18 03:40 09/09/18 04:51 Temperature 98.4 F Pulse Rate 79 79 Respiratory Rate 18 Blood Pressure 124/67 119/83 09/09/18 04:55 Temperature Pulse Rate 76 Respiratory Rate Blood Pressure 125/73 Narrative: GENERAL: Well-nourished, well-developed patient. SKIN: Warm and dry. HEAD: Normocephalic and atraumatic. EYES: No scleral icterus. No injection or drainage. ENT: No nasal drainage noted. Mucous membranes pink. Airway patent. NECK: Supple, trachea midline. No JVD. CARDIOVASCULAR: Regular rate and rhythm without murmurs, gallops, or rubs. RESPIRATORY: Breath sounds equal bilaterally. No accessory muscle use. ABDOMEN/GI: Abdomen soft, non-tender, bowel sounds present, no rebound, no guarding Gravid to 38 weeks size GENITOURINARY: External Genitalia: intact and normal in appearance Cervix: [-] Dilatation: 2cm Effacement: 60% Station: -3 Presentation: vertex Membranes: ruptured Uterine Contractions: q3-5 minutes FHT's: Category: I Baseline: 120s Reactive: +accels Variability: moderate Decels: none noted EXTREMITIES: No cyanosis or edema. BACK: Nontender without obvious deformity. No CVA tenderness. NEUROLOGICAL: Awake and alert. Motor and sensory grossly within normal limits. Normal speech. Results - Labs CBC & Chem 7: 09/09/18 03:55 Labs: Laboratory Results - last 24 hr 09/09/18 09/09/18 03:55 03:55 WBC 9.8 RBC 3.44 L Hgb 10.2 L Hct 30.5 L MCV 88.5 MCH 29.7 MCHC 33.6 RDW 13.7 Plt Count 232 D MPV 8.2 Neut % (Auto) 74.1 H Lymph % (Auto) 17.1 Spencer % (Auto) 7.5 Eos % (Auto) 0.7 Baso % (Auto) 0.6 Neut # (Auto) 7.3 Lymph # (Auto) 1.7 Spencer # (Auto) 0.7 Eos # (Auto) 0.1 Baso # (Auto) 0.1 WBC Differential . Differential Comment Auto diff final Blood Type A Positive Blood Type Recheck Not needed Caprini VTE Risk Assessment Caprini VTE Risk Assessment: No/Low Risk (score <= 1) Caprini Risk Assessment Model: Point Value = 1 Point Value = 2 Point Value = 3 Point Value = 5 Age 41-60 Minor surgery BMI > 25 kg/m2 Swollen legs Varicose veins or History of unexplained or recurrent spontaneous Oral contraceptives or hormone replacement Sepsis (< 1 month) Serious lung disease, including pneumonia (< 1 month) Abnormal pulmonary function Acute myocardial infarction Congestive heart failure (< 1 month) History of inflammatory bowel disease Medical patient at bed rest Age 61-74 Arthroscopic surgery Major open surgery (> 45 min) Laparoscopic surgery (> 45 min) Malignancy Confined to bed (> 72 hours) Immobilizing plaster cast Central venous access Age >= 75 History of VTE Family history of VTE Factor V Leiden Prothrombin [id number] Lupus anticoagulant Anticardiolipin antibodies Elevated serum homocysteine Heparin-induced thrombocytopenia Other congenital or acquired thrombophilia Stroke (< 1 month) Elective arthroplasty Hip, pelvis, or leg fracture Acute spinal cord injury (< 1 month) Prophylaxis Regimen: Total Risk Factor Score Risk Level Prophylaxis Regimen 0-1 Low Early ambulation 2 Moderate Order ONE of the following: *Sequential Compression Device (SCD) *Heparin 5000 units SQ BID 3-4 Higher Order ONE of the following medications: *Heparin 5000 units SQ TID *Enoxaparin/Lovenox 40 mg SQ daily (WT < 150 kg, CrCl > 30 mL/min) *Enoxaparin/Lovenox 30 mg SQ daily (WT < 150 kg, CrCl > 10-29 mL/min) *Enoxaparin/Lovenox 30 mg SQ BID (WT < 150 kg, CrCl > 30 mL/min) AND/OR *Sequential Compression Device (SCD) 5 or more Highest Order ONE of the following medications: *Heparin 5000 units SQ TID (Preferred with Epidurals) *Enoxaparin/Lovenox 40 mg SQ daily (WT < 150 kg, CrCl > 30 mL/min) *Enoxaparin/Lovenox 30 mg SQ daily (WT < 150 kg, CrCl > 10-29 mL/min) *Enoxaparin/Lovenox 30 mg SQ BID (WT < 150 kg, CrCl > 30 mL/min) AND *Sequential Compression Device (SCD) Assessment and Plan - Diagnosis (1) (vaginal after ) Code(s): O34.219 - Maternal care for unspecified type scar from previous delivery Status: Acute (2) SROM (spontaneous rupture of membranes) Status: Acute (3) 38 weeks gestation of Code(s): Z3A.38 - 38 weeks gestation of Status: Acute (4) Insufficient care in third trimester Code(s): O09.33 - Supervision of with insufficient care, third trimester Status: Acute - Plan 27 year old at 38/2 weeks gestation presented s/p SROM. 1. Previous , desires - The patient presented following leakage of fluid earlier this morning. Patient desired repeat cesarian section with bilateral tubal ligation however the proper documentation and consent for a tubal ligation was not obtained from the patient. She had desired a repeat cesarian section with the primary purpose to perform a tubal ligation. The patient was then counseled and given her options, and allowed ample time to discuss these options with her family. Patient opted to proceed with a . - Cervix: /-3, vertex - Category I tracing - Patient desiring epidural - GBS unknown, will start antibiotics empirically as she is ruptured - Start pitocin at 30 2. Ruptured, gross leakage of fluid 3. Insufficient care - Patient had missed her last three visits as an outpatient with a total of only five visits in total, also did not obtain labs despite multiple recommendations to do so - Will obtain labs at this time, patient verbally consented to be tested for HIV sdw Dr. Salvador and Dr. Sellers
[2018-09-09 05:06] LABS: Baso % (Auto) 0.3 % (0.0-2.0); Eos # (Auto) 0.1 th/mm3 (0.0-0.4); Eos % (Auto) 0.6 % (0.0-4.0); Hematocrit 28.1 % (35.0-46.0); Hemoglobin 9.9 gm/dL (11.6-15.3); Lymph # (Auto) 1.6 th/mm3 (1.0-4.8); Lymph % (Auto) 17.8 % (9.0-44.0); Mean Corpuscular HGB Conc 35.2 % (32.0-36.0); Mean Corpuscular Hemoglobin 30.6 pg (27.0-34.0); Mean Corpuscular Volume 86.9 fL (80.0-100.0); Mean Platelet Volume 8.4 fL (7.0-11.0); Mono # (Auto) 0.7 th/mm3 (0.0-0.9); Mono % (Auto) 7.7 % (0.0-8.0); Neut # (Auto) 6.7 th/mm3 (1.8-7.7); Neut % (Auto) 73.6 % (16.0-70.0); Platelet Count 216 th/mm3 (150-450); Red Blood Count 3.24 mil/mm3 (4.00-5.30); Red Cell Distribution Width 13.7 % (11.6-17.2); White Blood Count 9.1 th/mm3 (4.0-11.0)
[2018-09-09 06:10] LABS: Hepatitis A IgM Antibody Nonreactive (Nonreactive); Hepatitits B Surface Antigen Nonreactive (Nonreactive)
[2018-09-09] MEDS ORDERED: fentaNYL Citrate Inj 100 MCG/2 ML Ampul EPIDURAL ONE (06:23)
[2018-09-09] MEDS ORDERED: fentaNYL 2MCG-Bupiv 0.125% Epi 150 ML EPIDURAL PRN (06:23)
--- NOTE | 2018-09-09 08:59 | P.OBLABOR ---
Subjective Interval history: Patient is doing well. Resting comfortably. No complaints. Pain is well- controlled with epidural. Objective Vital Signs: Vital Signs - 8 hr 09/09/18 03:39 09/09/18 03:40 09/09/18 04:51 Temperature 98.4 F Pulse Rate 79 79 Respiratory Rate 18 Blood Pressure 124/67 119/83 09/09/18 04:55 09/09/18 05:00 09/09/18 05:03 Temperature Pulse Rate 76 79 78 Respiratory Rate Blood Pressure 125/73 125/72 09/09/18 05:14 09/09/18 05:42 09/09/18 05:50 Temperature 98.1 F Pulse Rate 78 67 Respiratory Rate 18 Blood Pressure 128/76 112/80 09/09/18 05:57 09/09/18 06:15 09/09/18 06:45 Temperature Pulse Rate 71 66 69 Respiratory Rate Blood Pressure 103/54 L 103/51 L 104/56 L 09/09/18 06:55 09/09/18 07:05 09/09/18 07:16 Temperature 97.7 F Pulse Rate 64 68 75 Respiratory Rate 18 Blood Pressure 113/63 104/55 L 09/09/18 07:45 09/09/18 08:00 09/09/18 08:25 Temperature Pulse Rate 68 67 70 Respiratory Rate Blood Pressure 112/63 106/57 L 111/66 09/09/18 08:35 09/09/18 08:45 Temperature Pulse Rate 66 66 Respiratory Rate Blood Pressure 109/68 101/56 L Objective: Pelvic Exam: Cervix: midposition Dilatation: 7 Effacement: 80 Station: -1 Presentation: vertex Membranes: ruptured Uterine Contractions: q6min FHT's: Category: 1 Baseline: 100s-110s Reactive: yes Variability: moderate Decels: last deceleration at 0630 Assessment and Plan - Diagnosis (1) (vaginal after ) Code(s): O34.219 - Maternal care for unspecified type scar from previous delivery Status: Acute (2) SROM (spontaneous rupture of membranes) Status: Acute (3) 38 weeks gestation of Code(s): Z3A.38 - 38 weeks gestation of Status: Acute (4) Insufficient care in third trimester Code(s): O09.33 - Supervision of with insufficient care, third trimester Status: Acute - Plan 27 year old at 38/2 weeks gestation presented s/p SROM. 1. Previous , desires - The patient presented following leakage of fluid earlier this morning. Patient desired repeat cesarian section with bilateral tubal ligation however the proper documentation and consent for a tubal ligation was not obtained from the patient. She had desired a repeat cesarian section with the primary purpose to perform a tubal ligation. The patient was then counseled and given her options, and allowed ample time to discuss these options with her family. Patient opted to proceed with a . - Cervix: /-1, vertex - Category I tracing at this time, some decelerations this morning intermittently between [id number] - Epidural in place - GBS negative, s/p PCN - Start pitocin at 1-1-30 at this time 2. Ruptured, gross leakage of fluid 3. Insufficient care - Patient had missed her last three visits as an outpatient with a total of only five visits in total, also did not obtain labs despite multiple recommendations to do so - Will obtain labs at this time, patient verbally consented to be tested for HIV sdw Dr. Salvador and Dr. Arellano - Attending Attestation I saw and discussed patient with the resident and agree with documentation.
[2018-09-09] MEDS ORDERED: Penicillin G Potassium Inj 2,500,000 UNIT in Sodium Chlor 0.9% Inj 100 ML IV.SIG SCH ×2 (09:01→10:00)
[2018-09-09 11:13] LABS: Amorphous Sediment,Urine Few /hpf; Bacteria,Urine Few /hpf; Bilirubin,Urine Negative (Negative); Clarity,Urine Hazy (Clear); Color,Urine Yellow (Yellw/Straw); Glucose,Urine (UA) Negative (Negative); Leukocyte Esterase,Urine Small (Negative); Mucus,Urine Few /lpf (Occasional); Nitrite,Urine Negative (Negative); Specific Gravity,Urine 1.018 (1.002-1.035); Squamous Epithelial Cell,Urine <1 /hpf (0-5)
[2018-09-09] MEDS ORDERED: Lidocaine 1% Inj 50 ML Vial ONE (12:35)
--- NOTE | 2018-09-09 12:59 | P.OBDELI ---
Weeks Gestation: 38 Anesthesia: Epidural Episiotomy: none Vaginal Delivery: Normal Presentation: Occiput anterior Nuchal Cord: None Delayed Cord Clamping (45 sec): Yes Placenta: Spontaneous delivery Laceration: Vaginal, 1 deg Estimated blood loss (mL): 200 Infant: Male, Single Additional Information: Attending note: I was present for the entire delivery. There were no complications. See delivery note for details. - Oren Arellano
[2018-09-09] MEDS ORDERED: Witch Hazel 50%/Glyderin 12.5% 40 Pad Jar RECTAL PRN (13:00)
[2018-09-09] MEDS ORDERED: Bisacodyl 10 MG Supp RECTAL PRN (13:00)
[2018-09-09] MEDS ORDERED: Oxytocin 30 Units/500ml Premix 30 UNITS/500 ML BAG IV.CONT PRN (13:00)
[2018-09-09] MEDS ORDERED: Zolpidem Tartrate 5 MG Tablet PO PRN (13:00)
[2018-09-09] MEDS ORDERED: Benzocaine 20% Top Spray 60 ML Can TOPICAL PRN (13:00)
[2018-09-09 14:34] LABS: Amphetamine Urine With Conf Neg (Neg); Benzodiazepine Urine With Conf Neg (Neg)
[2018-09-09] MEDS ORDERED: Diphtheria/Tetanus/Pertussis Vaccine Inj 0.5 ML Syringe IM ONE (16:00)
[2018-09-09] MEDS ORDERED: Measles/Mumps/Rubella Vaccine Inj 0.5 ML Vial SQ ONE (16:00)
[2018-09-09] MEDS: Acetaminophen 325 MG Tablet PO PRN ×2 (17:59→23:14)
[2018-09-09] MEDS: Senna/Docusate Sodium 8.6/50 MG Tablet PO SCH (21:54)
[2018-09-10] MEDS: Acetaminophen 325 MG Tablet PO PRN ×3 (03:12→15:40)
--- NOTE | 2018-09-10 07:48 | P.PNOB ---
Subjective Post day: 1 Interval history: day # 1. AFVSS overnight. Pain 9/10 in her abdomen. Decreased lochia. Denies dysuria. No breast tenderness. She is feeding the baby via bottle. Appetite good. No nausea or vomiting. + flatus. no bowel movement. Ambulating well. Denies calf pain, shortness of breath, or cough. No fever overnight. No other complaints. Objective Vital Signs/I&O: Vital Signs 09/09/18 08:00 09/09/18 08:25 09/09/18 08:35 Temperature Pulse Rate 67 70 66 Respiratory Rate Blood Pressure 106/57 L 111/66 109/68 09/09/18 08:45 09/09/18 09:00 09/09/18 09:15 Temperature Pulse Rate 66 65 59 L Respiratory Rate Blood Pressure 101/56 L 105/63 111/69 09/09/18 09:30 09/09/18 09:38 09/09/18 10:01 Temperature 98.0 F Pulse Rate 64 68 Respiratory Rate 18 Blood Pressure 110/69 116/74 09/09/18 10:15 09/09/18 10:31 09/09/18 10:45 Temperature Pulse Rate 71 79 74 Respiratory Rate Blood Pressure 112/72 105/76 111/79 09/09/18 11:00 09/09/18 11:15 09/09/18 11:30 Temperature Pulse Rate 71 72 74 Respiratory Rate Blood Pressure 115/75 117/74 117/73 09/09/18 11:32 09/09/18 12:00 09/09/18 12:15 Temperature 98.6 F Pulse Rate 72 69 Respiratory Rate Blood Pressure 100/58 L 106/67 09/09/18 12:45 09/09/18 13:02 09/09/18 13:15 Temperature Pulse Rate 75 71 70 Respiratory Rate Blood Pressure 116/76 115/75 111/81 09/09/18 13:30 09/09/18 13:45 09/09/18 14:30 Temperature Pulse Rate 63 62 60 Respiratory Rate Blood Pressure 115/72 119/71 120/76 09/09/18 14:45 09/09/18 18:00 09/09/18 21:05 Temperature 98.3 F 98.1 F Pulse Rate 58 L 63 67 Respiratory Rate 18 18 Blood Pressure 119/76 126/71 125/71 Result Diagrams: 09/09/18 04:07 Objective Remarks: GENERAL: Well-nourished, well-developed patient. CARDIOVASCULAR: Regular rate and rhythm without murmurs, gallops, or rubs. RESPIRATORY: Breath sounds equal bilaterally. No accessory muscle use. ABDOMEN/GI: Abdomen soft, non-tender. Fundus: Firm, non-tender at umbilicus. GENITOURINARY: Light to moderate bleeding. EXTREMITIES: No cyanosis or edema, non-tender, without signs of DVT. Medications and IVs: Active Medications Acetaminophen (Tylenol) 650 mg PO Q4H PRN PRN Reason: PAIN SCALE 1 TO 2 Last Admin: 09/10/18 03:12 Dose: 650 mg Al Hydroxide/Mg Hydroxide (Milk Of Magnesia Liq) 30 ml PO Q12H PRN PRN Reason: Mild Constipation Benzocaine (Americaine 20% [place]) 1 spray TOPICAL Q4H PRN PRN Reason: For Perineum Discomfort Bisacodyl (Dulcolax Supp) 10 mg RECTAL DAILY PRN PRN Reason: SEVERE CONSITIPATION Oxytocin (Pitocin 30 Units/Ns 500 Ml Premix) 30 units in 500 mls @ 1 mls/hr IV.SIG TITRATE PRN; Protocol PRN Reason: For induction of labor Last Admin: 09/09/18 09:02 Dose: 1 milliunit/min, 1 mls/hr Fentanyl/Bupivacaine/Sodium Chlor (Fentanyl 2 Mcg-Bupiv 0.125% Epi) 150 mls @ 12 mls/hr EPIDURAL PRN PRN PRN Reason: for Labor Pain Last Admin: 09/09/18 06:45 Dose: 12 mls/hr Oxytocin (Pitocin 30 Units/Ns 500 Ml Premix) 30 units in 500 mls @ 100 mls/hr IV.CONT UNSCH PRN PRN Reason: Heavy bleeding Ibuprofen (Motrin) 800 mg PO Q8H PRN PRN Reason: For Cramping Last Admin: 09/10/18 03:11 Dose: 800 mg Lactulose (Lactulose Liq) 30 ml PO DAILY PRN PRN Reason: SEVERE CONSITIPATION Naloxone HCl (Narcan Inj) 0.1 mg IV.PUSH Q2M PRN PRN Reason: for opiate reversal Ondansetron HCl (Zofran Odt) 4 mg PO Q6H PRN PRN Reason: NAUSEA OR VOMITING Senna/Docusate Sodium (Fawn-Colace) 1 tab PO BID [facility] Last Admin: 09/09/18 21:54 Dose: Not Given Sennosides (Senokot) 17.2 mg PO Q12H PRN PRN Reason: Moderate Constipation Sodium Chloride (Ns Flush) 2 ml IV.FLUSH BID [facility] Last Admin: 09/09/18 21:54 Dose: 2 ml Sodium Chloride (Ns Flush) 2 ml IV.FLUSH PRN PRN PRN Reason: FLUSH AFTER USING IV ACCESS Witch [place]/Glycerin (Tucks Pads) 1 applicatio RECTAL QID PRN PRN Reason: HEMORRHOIDS Zolpidem Tartrate (Ambien) 5 mg PO HS PRN PRN Reason: SLEEP Assessment and Plan - Diagnosis (1) (vaginal after ) Code(s): O34.219 - Maternal care for unspecified type scar from previous delivery Status: Acute (2) SROM (spontaneous rupture of membranes) Status: Acute (3) 38 weeks gestation of Code(s): Z3A.38 - 38 weeks gestation of Status: Acute (4) Insufficient care in third trimester Code(s): O09.33 - Supervision of with insufficient care, third trimester Status: Acute - Plan 27 year old at 38/2 weeks gestation presented s/p SROM. PPD 1 from -Continue routine care. -Percocet and Motrin PRN pain. Spoke with Dr. Pride about abdominal pain. Will add lortab. -Due to increased abdominal pain will add Keflex 500mg BID x 5 days. -Encouraged OOB. Advised pelvic rest for 6 wks. -Will need a f/u appt. within 6 wks. -Re: ctrl, she would like Depo-Provera. -MMR before d/c -D/c tomorrow. seen and dw Dr. Pride
[2018-09-10] MEDS ORDERED: medroxyPROGESTERone Acetate Inj 150 MG/ML Syringe IM ONE (08:24)
[2018-09-10] MEDS: Senna/Docusate Sodium 8.6/50 MG Tablet PO SCH ×2 (08:52→20:05)
[2018-09-11] MEDS: Acetaminophen 325 MG Tablet PO PRN (06:04)
[2018-09-11 08:41] VITALS: BP 110/74; PULSE 70; RESP 20
[2018-09-11 08:42] VITALS: TEMP 97.6
--- NOTE | 2018-09-11 09:46 | P.PNOB ---
Subjective Post day: 2 Interval history: day # 2. AFVSS overnight. Is still having some abdominal pain and cramping. Decreased lochia. Denies dysuria. No breast tenderness. She is feeding the baby via bottle. Appetite good. No nausea or vomiting. + flatus. No bowel movement. Ambulating well. Denies calf pain, shortness of breath, or cough. Otherwise, she is doing well this morning and has no other complaints. Objective Vital Signs/I&O: Vital Signs 09/10/18 20:30 09/11/18 08:30 Temperature 98.1 F 97.6 F Pulse Rate 63 70 Respiratory Rate 18 20 Blood Pressure 120/85 110/74 Result Diagrams: 09/09/18 04:07 Objective Remarks: GENERAL: Well-nourished, well-developed patient. CARDIOVASCULAR: Regular rate and rhythm without murmurs, gallops, or rubs. RESPIRATORY: Breath sounds equal bilaterally. No accessory muscle use. ABDOMEN/GI: Abdomen soft, non-tender. Fundus: Firm, non-tender at umbilicus. GENITOURINARY: Light to moderate bleeding. EXTREMITIES: No cyanosis or edema, non-tender, without signs of DVT. Medications and IVs: Active Medications Acetaminophen (Tylenol) 650 mg PO Q4H PRN PRN Reason: PAIN SCALE 1 TO 2 Last Admin: 09/11/18 06:04 Dose: 650 mg Al Hydroxide/Mg Hydroxide (Milk Of Emelia Rivera) 30 ml PO Q12H PRN PRN Reason: Mild Constipation Benzocaine (Americaine 20% [place]) 1 spray TOPICAL Q4H PRN PRN Reason: For Perineum Discomfort Bisacodyl (Dulcolax Supp) 10 mg RECTAL DAILY PRN PRN Reason: SEVERE CONSITIPATION Cephalexin Monohydrate (Keflex) 500 mg PO Q12H [facility] Last Admin: 09/11/18 05:58 Dose: 500 mg Oxytocin (Pitocin 30 Units/Ns 500 Ml Premix) 30 units in 500 mls @ 1 mls/hr IV.SIG TITRATE PRN; Protocol PRN Reason: For induction of labor Last Admin: 09/09/18 09:02 Dose: 1 milliunit/min, 1 mls/hr Fentanyl/Bupivacaine/Sodium Chlor (Fentanyl 2 Mcg-Bupiv 0.125% Epi) 150 mls @ 12 mls/hr EPIDURAL PRN PRN PRN Reason: for Labor Pain Last Admin: 09/09/18 06:45 Dose: 12 mls/hr Oxytocin (Pitocin 30 Units/Ns 500 Ml Premix) 30 units in 500 mls @ 100 mls/hr IV.CONT UNSCH PRN PRN Reason: Heavy bleeding Ibuprofen (Motrin) 800 mg PO Q8H PRN PRN Reason: For Cramping Last Admin: 09/11/18 06:05 Dose: 800 mg Lactulose (Lactulose Liq) 30 ml PO DAILY PRN PRN Reason: SEVERE CONSITIPATION Naloxone HCl (Narcan Inj) 0.1 mg IV.PUSH Q2M PRN PRN Reason: for opiate reversal Ondansetron HCl (Zofran Odt) 4 mg PO Q6H PRN PRN Reason: NAUSEA OR VOMITING Senna/Docusate Sodium (Fawn-Colace) 1 tab PO BID [facility] Last Admin: 09/10/18 20:05 Dose: 1 tab Sennosides (Senokot) 17.2 mg PO Q12H PRN PRN Reason: Moderate Constipation Sodium Chloride (Ns Flush) 2 ml IV.FLUSH BID [facility] Last Admin: 09/10/18 16:11 Dose: Not Given Sodium Chloride (Ns Flush) 2 ml IV.FLUSH PRN PRN PRN Reason: FLUSH AFTER USING IV ACCESS Witch Sagrario/Glycerin (Tucks Pads) 1 applicatio RECTAL QID PRN PRN Reason: HEMORRHOIDS Zolpidem Tartrate (Ambien) 5 mg PO HS PRN PRN Reason: SLEEP Assessment and Plan - Diagnosis (1) (vaginal after ) Code(s): O34.219 - Maternal care for unspecified type scar from previous delivery Status: Acute (2) SROM (spontaneous rupture of membranes) Status: Acute (3) 38 weeks gestation of Code(s): Z3A.38 - 38 weeks gestation of Status: Acute (4) Insufficient care in third trimester Code(s): O09.33 - Supervision of with insufficient care, third trimester Status: Acute - Plan 27 year old at 38/2 weeks gestation presented s/p SROM. PPD 2 from -Continue routine care. -Tylenol and Motrin PRN pain. -Due to increased abdominal pain, will err on the side of caution. Keflex 500mg BID x 5 days (09/10- ), will add Flagyl 500mg BID x5 days today. Will send home with Rx's. -Encouraged OOB. Advised pelvic rest for 6 wks. -Will need a f/u appt. within 6 wks. -Re: ctrl, she would like Depo-Provera. -MMR before d/c -D/c today seen and dw Dr. Salvador
[2018-09-11] MEDS ORDERED: metroNIDAZOLE 500 MG Tablet PO SCH (11:00)
[2018-09-11] MEDS: Senna/Docusate Sodium 8.6/50 MG Tablet PO SCH (12:41)
== END 2018-09-11 12:10 | disposition home or self-care (01) ==
LOC: HOBED 03:25 → H2E 03:47 → H1EA 16:48
PROVIDERS: ADMIT Obstetrics & Gynecology; ATTEND Obstetrics & Gynecology

== ENCOUNTER 2018-09-13 10:36 | Observation (INO) ==
[2018-09-13] MEDS ORDERED: Sod Chloride 0.9% Inj 1,000 ML IV.SIG ONE (11:16)
--- NOTE | 2018-09-13 11:20 | ED ---
HPI General Chief Complaint: Respiratory Symptoms Stated Complaint: SOB Complaint Time Seen by Provider: 09/13/18 11:07 Source: patient Mode of arrival: ambulatory Limitations: no limitations History of Present Illness HPI Narrative: 27 YO , 4 day female presents to the ED for evaluation of episodic dyspnea on exertion/shortness of breath this morning. Patient can identify no alleviating or exacerbating factors. She endorses accompanying palpitations. She also complains of swelling and hard nodules of bilateral axilla, right greater than left. She is not the baby. She endorses small amount of breast discharge bilaterally. She states that she is otherwise been healthy. She denies fever, chills, sinus congestion, rhinorrhea, sore throat, chest pain, abdominal pain, nausea, vomiting, dysuria, leg pain, leg swelling. She denies history of seasonal allergies, asthma. She endorses mild vaginal spotting. She states the baby was born vaginally at 38 weeks, mom and baby have been healthy since the . She was discharged from the hospital 09/11. Related Data Home Medications Medication Instructions Recorded Confirmed No Known Home Medications 09/13/18 09/13/18 Allergies Allergy/AdvReac Type Severity Reaction Status Date / Time No Known Allergies Allergy Verified 09/09/18 06:16 Review of Systems ROS: all other systems reviewed are negative PMFSH Medical History Medical History Patient denies medical problems (Acute) Surgical History Surgical History History of (Acute) Social History Social History Substance History: No History of Abuse Second Hand Smoke Exposure: No Smoking Status: Current every day smoker Tobacco Type: Cigarettes How Often Do You Have a Drink Containing Alcohol: 2 to 4 times a month Hx Recent Travel: No Recent Travel in [facility] within the Last 8 Weeks: No Recent Out of Country Travel within the Last 8 Weeks: No Exam Narrative Exam Narrative: GENERAL: Well nourished, well developed, pleasant AA female in NAD. SKIN: Focused skin assessment warm/dry. LAD in bilateral axilla, right greater than left. No fluctuance, induration, erythema, warmth. HEAD: Atraumatic. Normocephalic. EYES: Pupils equal and round. No scleral icterus. No injection or drainage. ENT: No nasal bleeding or discharge. Mucous membranes pink and moist. NECK: Trachea midline. No JVD. CARDIOVASCULAR: Regular rate and rhythm. No murmur appreciated. RESPIRATORY: No accessory muscle use. Clear to auscultation. Breath sounds equal bilaterally. GASTROINTESTINAL: Abdomen soft, non-tender, nondistended. Active bowel sounds. Hepatic and splenic margins not palpable. MUSCULOSKELETAL: No obvious deformities. No clubbing. No cyanosis. No edema. Hohmann sign negative bilaterally. NEUROLOGICAL: Awake and alert. No obvious cranial nerve deficits. Motor grossly within normal limits. Normal speech. PSYCHIATRIC: Appropriate mood and affect; insight and judgment normal. Course Initial Documented Vital Signs Temperature 98.0 F 09/13/18 10:42 Pulse Rate 62 09/13/18 10:42 Respiratory Rate 16 09/13/18 10:42 Blood Pressure 129/85 09/13/18 10:42 Pulse Oximetry 97 09/13/18 10:42 Last Documented Vital Signs Temperature 98.0 F 09/13/18 10:42 Pulse Rate 62 09/13/18 10:42 Respiratory Rate 16 09/13/18 10:42 Blood Pressure 129/85 09/13/18 10:42 Pulse Oximetry 94 L 09/13/18 15:21 Medical Decision Making [facility] Narrative Medical decision making narrative: 27 YO , 4 day female presents to the ED for evaluation of episodic dyspnea on exertion/shortness of breath this morning. Also complains of tender edema bilateral axilla. Vitals reviewed. Physical exam suspicious for bilateral LAD, right greater than left. Breath sounds clear and equal bilaterally. No lower extremity edema. EKG without acute findings. CXR with evidence of cardiomegaly. BNP 351. CTA with small pleural effusions, no evidence of PE. Discussed the results of the workup with the patient as well as the recommendation for admission. She is agreeable to this plan. I spoke with Dr. Noe Jeffers, on-call TRANSLATOR DE[employer]. She recommends admission to the medicine service. I spoke with the residents who agree to accept the patient to the medicine service. Please see their notes for disposition. Medical Screen Exam Complete: Yes Emergency Medical Condition: Yes Differential Diagnosis Differential Diagnosis: Pulmonary embolism versus pneumonia versus cardiomyopathy versus deconditioning versus lymphadenopathy versus breast abscess versus other Lab Data Result diagrams: 09/13/18 11:20 09/13/18 11:20 Lab Results 09/13/18 09/13/18 09/13/18 Range/Units 11:20 11:20 11:20 WBC 5.6 (4.0-11.0) th/mm3 RBC 3.58 L (4.00-5.30) mil/mm3 Hgb 10.5 L (11.6-15.3) gm/dL Hct 32.1 L (35.0-46.0) % MCV 89.7 (80.0-100.0) fL MCH 29.4 (27.0-34.0) pg MCHC 32.8 (32.0-36.0) % RDW 14.1 (11.6-17.2) % Plt Count 234 (150-450) th/mm3 MPV 8.6 (7.0-11.0) fL Neut % (Auto) 64.6 (16.0-70.0) % Lymph % (Auto) 23.5 (9.0-44.0) % Gordon % (Auto) 7.4 (0.0-8.0) % Eos % (Auto) 3.8 (0.0-4.0) % Baso % (Auto) 0.7 (0.0-2.0) % Neut # (Auto) 3.6 (1.8-7.7) th/mm3 Lymph # (Auto) 1.3 (1.0-4.8) th/mm3 Gordon # (Auto) 0.4 (0.0-0.9) th/mm3 Eos # (Auto) 0.2 (0.0-0.4) th/mm3 Baso # (Auto) 0.0 (0.0-0.2) th/mm3 WBC Differential . Differential Comment Auto diff final PT 10.7 (9.8-11.6) sec INR 1.1 Ratio APTT 28.2 (24.3-30.1) sec Sodium 144 (136-145) meq/L Potassium 3.5 (3.5-5.1) meq/L Chloride 111 H (98-107) meq/L Carbon Dioxide 26.5 (21.0-32.0) meq/L Anion Gap 7 (5-15) meq/L BUN 8 (7-18) mg/dL Creatinine 0.52 (0.50-1.00) mg/dL Estimated GFR Greater than 89 (>89) mL/min Random Glucose 82 (74-106) mg/dL Calcium 7.9 L (8.5-10.1) mg/dL Total Bilirubin 0.4 (0.2-1.0) mg/dL AST 44 H (15-37) U/L ALT 65 H (10-53) U/L Alkaline Phosphatase 151 H (45-117) U/L Troponin I Less than 0.02 L (0.02-0.05) ng/mL B-Natriuretic Peptide (0-100) pg/mL Total Protein 6.2 L (6.4-8.2) g/dL Albumin 2.7 L (3.4-5.0) g/dL 09/13/18 Range/Units 11:20 WBC (4.0-11.0) th/mm3 RBC (4.00-5.30) mil/mm3 Hgb (11.6-15.3) gm/dL Hct (35.0-46.0) % MCV (80.0-100.0) fL MCH (27.0-34.0) pg MCHC (32.0-36.0) % RDW (11.6-17.2) % Plt Count (150-450) th/mm3 MPV (7.0-11.0) fL Neut % (Auto) (16.0-70.0) % Lymph % (Auto) (9.0-44.0) % Gordon % (Auto) (0.0-8.0) % Eos % (Auto) (0.0-4.0) % Baso % (Auto) (0.0-2.0) % Neut # (Auto) (1.8-7.7) th/mm3 Lymph # (Auto) (1.0-4.8) th/mm3 Gordon # (Auto) (0.0-0.9) th/mm3 Eos # (Auto) (0.0-0.4) th/mm3 Baso # (Auto) (0.0-0.2) th/mm3 WBC Differential Differential Comment PT (9.8-11.6) sec INR Ratio APTT (24.3-30.1) sec Sodium (136-145) meq/L Potassium (3.5-5.1) meq/L Chloride (98-107) meq/L Carbon Dioxide (21.0-32.0) meq/L Anion Gap (5-15) meq/L BUN (7-18) mg/dL Creatinine (0.50-1.00) mg/dL Estimated GFR (>89) mL/min Random Glucose (74-106) mg/dL Calcium (8.5-10.1) mg/dL Total Bilirubin (0.2-1.0) mg/dL AST (15-37) U/L ALT (10-53) U/L Alkaline Phosphatase (45-117) U/L Troponin I (0.02-0.05) ng/mL B-Natriuretic Peptide 351 H (0-100) pg/mL Total Protein (6.4-8.2) g/dL Albumin (3.4-5.0) g/dL Imaging Data Radiologist's impression: Chest X-Ray 09/13/18 11:16 CONCLUSION: 1. No acute cardiopulmonary disease. Chest CTA 09/13/18 11:17 CONCLUSION: 1. Small bilateral effusions. ECG Data EKG Prior to Arrival: No Attestation: I personally reviewed and interpreted this ECG as follows: Discharge Plan Discharge Disposition Patient Disposition: 30 Still Patient Discharge Details Diagnosis: LAD (lymphadenopathy), axillary, Cardiomyopathy, peripartum, Physicians Team ED Provider: Yudith Briceno ED Midlevel Provider: Linda Rios Primary Care Provider: Ally Sellers Attending Provider: Berkley Ontiveros Discharge Interventions Interventions: Vital Signs Last Done: 09/13/18 15:21 Status ED Status: Admitted Patient
[2018-09-13 11:42] LABS: Baso % (Auto) 0.7 % (0.0-2.0); Eos # (Auto) 0.2 th/mm3 (0.0-0.4); Eos % (Auto) 3.8 % (0.0-4.0); Hematocrit 32.1 % (35.0-46.0); Hemoglobin 10.5 gm/dL (11.6-15.3); Lymph # (Auto) 1.3 th/mm3 (1.0-4.8); Lymph % (Auto) 23.5 % (9.0-44.0); Mean Corpuscular HGB Conc 32.8 % (32.0-36.0); Mean Corpuscular Hemoglobin 29.4 pg (27.0-34.0); Mean Corpuscular Volume 89.7 fL (80.0-100.0); Mean Platelet Volume 8.6 fL (7.0-11.0); Mono # (Auto) 0.4 th/mm3 (0.0-0.9); Mono % (Auto) 7.4 % (0.0-8.0); Neut # (Auto) 3.6 th/mm3 (1.8-7.7); Neut % (Auto) 64.6 % (16.0-70.0); Platelet Count 234 th/mm3 (150-450); Red Blood Count 3.58 mil/mm3 (4.00-5.30); Red Cell Distribution Width 14.1 % (11.6-17.2); White Blood Count 5.6 th/mm3 (4.0-11.0)
[2018-09-13 11:44] LABS: Activated Partial Thrombo Time 28.2 sec (24.3-30.1); INR 1.1 Ratio; Prothrombin Time 10.7 sec (9.8-11.6)
[2018-09-13 11:48] LABS: Alanine Aminotransferase 65 U/L (10-53); Albumin 2.7 g/dL (3.4-5.0); Anion Gap 7 meq/L (5-15); Aspartate Aminotransferase 44 U/L (15-37); Blood Urea Nitrogen 8 mg/dL (7-18); Calcium 7.9 mg/dL (8.5-10.1); Carbon Dioxide 26.5 meq/L (21.0-32.0); Chloride 111 meq/L (98-107); Glomerular Filtration Rate Greater Than 89 mL/min (>89); Glucose,Random 82 mg/dL (74-106); Potassium 3.5 meq/L (3.5-5.1); Sodium 144 meq/L (136-145)
[2018-09-13 11:52] LABS: Alkaline Phosphatase 151 U/L (45-117); Total Protein 6.2 g/dL (6.4-8.2)
--- NOTE | 2018-09-13 12:02 | XR ---
EXAM DATE: 09/13/2018 11:16 AM EDT AGE/SEX: 27 years / Female INDICATIONS: Short of breath today, no chest pain CLINICAL DATA: This is the patient's initial encounter. Patient reports that signs and symptoms have been present for 1 day and indicates a pain score of 0/10. MEDICAL/SURGICAL HISTORY: None. None. COMPARISON: No prior exams available for comparison. FINDINGS: A single AP view of the chest demonstrates the lungs to be symmetrically aerated without evidence of mass, infiltrate or effusion. The cardiomediastinal contours are unremarkable. Osseous structures a re intact. CONCLUSION: 1. No acute cardiopulmonary disease. Electronically signed by: Jesus Savage MD 09/13/2018 12:01 PM EDT
--- NOTE | 2018-09-13 13:10 | CT ---
EXAM DATE: 09/13/2018 12:07 PM EDT AGE/SEX: 27 years / Female INDICATIONS: Shortness of breath four days CLINICAL DATA: This is the patient's initial encounter. Patient reports that signs and symptoms have been present for 2 days and indicates a pain score of 0/10. MEDICAL/SURGICAL HISTORY: Asthma. section. RADIATION DOSE: 13.24 CTDI (mGy) COMPARISON: [facility], CHEST 1V SINGLE AP, 09/13/2018. . TECHNIQUE: Volumetric scanning was performed using a multi-row detector CT scanner during bolus infu jane of 70 ml Omnipaque 350 (iohexol) nonionic water-soluble contrast as a single exam dose. The patricia a was post processed with a variety of visualization algorithms including full volume maximum intensi ty projection and sliding thin slab reformation. Using automated exposure control and adjustment of the mA and/or kV according to patient size, radiation dose was kept as low as reasonably achievable t o obtain optimal diagnostic quality images. DICOM format image data is available electronically for review and comparison. FINDINGS: There are small bilateral pleural effusions, right greater than left. No adenopathy. There is no evid ence for pulmonary embolus. Mild dependent atelectatic changes are seen. CONCLUSION: 1. Small bilateral effusions. Electronically signed by: Kashmir Lynn MD 09/13/2018 1:09 PM EDT
--- NOTE | 2018-09-13 15:07 | P.HPFP ---
History of Present Illness Service: Family medicine residents' Family practice inpatient teaching service Primary Care Physician: Ally Sellers MD, R2 Chief Complaint: Shortness of breath History of Present Illness: Patient is a 27-year-old , day 4 female who presented to the ED for evaluation of dyspnea on exertion/shortness of breath since this morning. Patient reports that she was woken up out of sleep with a feeling of shortness of breath. She tried to sit up, drink water, put her arms above her head, but none of it helped. She also had some chest pain this morning, which was new and unusual for her. Patient reports that her chest pain resolved as soon as she arrived at the emergency department. However, her shortness of breath and dyspnea on exertion have persisted. Patient reports that her legs have been swollen since she left the hospital. They do not seem any more swollen than usual. She denies calf pain bilaterally. Patient can identify no alleviating or exacerbating factors. She states that she has otherwise been healthy. She denies fever, chills, sinus congestion, rhinorrhea, sore throat, chest pain, abdominal pain, nausea, vomiting, dysuria, leg pain, leg swelling. She denies history of seasonal allergies, asthma. She reports vaginal bleeding. She states the baby was born vaginally at 38 weeks. She denies any problems during the , but she reports that she was diagnosed with endometritis and was prescribed a couple of antibiotics to treat this condition, but she has not filled these prescriptions yet. She was discharged from the hospital on 09/11. PMH: denies PSH: Dec 22, 2016. OB history: 6 preg, 5 living children, 1 miscarriage meds: none All: NKA FH: DM in [place] SH: no TRINA feels safe at home - Diagnosis (1) Shortness of breath (2) Endometritis following delivery Review of Systems Denies fever or chills No polyuria, polydipsia Denies vision changes, eye pain, hearing changes, rhinorrhea, sore throat Denies sore throat, runny nose, cough No chest pain right now, palpitations, + shortness of breath + abdominal pain consistent with uterine cramping Denies constipation, diarrhea, nausea, vomiting, black or bloody stools No dysuria, hematuria Denies muscle/joint pain, weakness, headache No rashes, itching PMFSH - History History Provided By: Patient - Medical / Surgical Hx Neg / Unobtainable Medical Problems Denied: Yes - Medical History Medical History: Medical History (Last Reviewed 09/13/18 @ 12:44 by Skye Hale) Patient denies medical problems - Surgical History Surgical History: Surgical History (Last Reviewed 09/13/18 @ 12:44 by Skye Hale) History of - Family History Family History: Family History (Last Updated 09/13/18 @ 16:05 by Oren Rivera MD, R3) Grandparent Family history of diabetes mellitus Other No pertinent family history - Social History I have reviewed the patient's Social History: Yes - Tobacco History Second Hand Smoke Exposure: No Tobacco Use In Past 30 Days: Yes Smoking Status: Current every day smoker Tobacco Type: Cigarettes - Alcohol History How Often Do You Have a Drink Containing Alcohol: 2 to 4 times a month - Substance Use History Substance History: No History of Abuse - Travel History History of Recent Travel: No Recent Travel in the [place] Within the Last 8 Weeks: No Recent Travel Out of the Country Within the Last 8 Weeks: No - Immunization History Tetanus Immunization: <5 Years Medications and Allergies Active Medications: Home Medications No Known Home Medications 09/13/18 [History Confirmed 09/13/18] Active Medications Acetaminophen (Tylenol) 650 mg PO Q4H PRN PRN Reason: Temp > 100.4 Al Hydroxide/Mg Hydroxide (Milk Of Magnesia Liq) 30 ml PO Q12H PRN PRN Reason: Mild Constipation Bisacodyl (Dulcolax Supp) 10 mg RECTAL DAILY PRN PRN Reason: SEVERE CONSITIPATION Cephalexin Monohydrate (Keflex) 500 mg PO Q12HR ELSA Ibuprofen (Motrin) 800 mg PO Q8H PRN PRN Reason: ABDOMINAL CRAMPING Lactulose (Lactulose Liq) 30 ml PO DAILY PRN PRN Reason: SEVERE CONSITIPATION Metronidazole (Flagyl) 500 mg PO Q12HR [facility] Multivi/Iron Carb/Fe Sulf/FA/Prenat ( Vitamin Chewable) 1 tab CHEW DAILY ELSA Ondansetron HCl (Zofran Inj) 4 mg IV.PUSH Q6H PRN PRN Reason: NAUSEA OR VOMITING Senna/Docusate Sodium (Fawn-Colace) 1 tab PO BID ELSA Sennosides (Senokot) 17.2 mg PO Q12H PRN PRN Reason: Moderate Constipation Zolpidem Tartrate (Ambien) 5 mg PO HS PRN PRN Reason: INSOMNIA Lasix 20 mg IV twice daily Allergies Allergy/AdvReac Type Severity Reaction Status Date / Time No Known Allergies Allergy Verified 09/09/18 06:16 Home Medications Medication Instructions Recorded Confirmed Type No Known Home Medications 09/13/18 09/13/18 History Exam Vital signs: Vital Signs 09/13/18 10:42 09/13/18 11:45 Temperature 98.0 F Pulse Rate 62 Respiratory Rate 16 Blood Pressure 129/85 Pulse Oximetry 97 98 Intake & Output 09/12/18 09/13/18 09/13/18 18:59 06:59 18:59 Weight 90.718 kg Narrative: GENERAL: This is a well-nourished, well-developed patient, in no apparent distress. SKIN: No rashes, ecchymoses or lesions. Cool and dry. HEAD: Atraumatic. Normocephalic. EYES: Pupils equal round and reactive. Extraocular motions intact. No scleral icterus. No injection or drainage. ENT: Nose without bleeding, purulent drainage. Throat without erythema, tonsillar hypertrophy or exudate. Uvula midline. Airway patent. NECK: Trachea midline. No JVD or lymphadenopathy. Supple, nontender, no meningeal signs. CARDIOVASCULAR: Bradycardic rate and regular rhythm without murmurs, gallops, or rubs. RESPIRATORY: Bibasilar expiratory rales as well as some inspiratory rales in the mid right lung field. No wheezes or rhonchi. GASTROINTESTINAL: Abdomen soft, non-tender, nondistended. No guarding. MUSCULOSKELETAL: 1+ pitting edema to knees bilaterally. Extremities without clubbing, cyanosis. No joint tenderness, effusion, or edema noted. No calf tenderness. NEUROLOGICAL: Awake and alert. Cranial nerves II through XII grossly intact. Motor and sensory grossly within normal limits. Normal speech. Results - Labs Result diagrams: 09/13/18 11:20 09/13/18 11:20 Abnormal lab results 09/13/18 09/13/18 09/13/18 Range/Units 11:20 11:20 11:20 RBC 3.58 L (4.00-5.30) mil/mm3 Hgb 10.5 L (11.6-15.3) gm/dL Hct 32.1 L (35.0-46.0) % Chloride 111 H (98-107) meq/L Calcium 7.9 L (8.5-10.1) mg/dL AST 44 H (15-37) U/L ALT 65 H (10-53) U/L Alkaline Phosphatase 151 H (45-117) U/L Troponin I Less than 0.02 L (0.02-0.05) ng/mL B-Natriuretic Peptide 351 H (0-100) pg/mL Total Protein 6.2 L (6.4-8.2) g/dL Albumin 2.7 L (3.4-5.0) g/dL Short CBC 09/13/18 Range/Units 11:20 WBC 5.6 (4.0-11.0) th/mm3 Hgb 10.5 L (11.6-15.3) gm/dL Hct 32.1 L (35.0-46.0) % Plt Count 234 (150-450) th/mm3 BMP 09/13/18 11:20 Sodium 144 Potassium 3.5 Chloride 111 H Carbon Dioxide 26.5 BUN 8 Creatinine 0.52 Calcium 7.9 L Cardiac Enzymes 09/13/18 Range/Units 11:20 Troponin I Less than 0.02 L (0.02-0.05) ng/mL Liver Function 09/13/18 Range/Units 11:20 Total Bilirubin 0.4 (0.2-1.0) mg/dL AST 44 H (15-37) U/L ALT 65 H (10-53) U/L Alkaline Phosphatase 151 H (45-117) U/L Albumin 2.7 L (3.4-5.0) g/dL - Imaging Impressions Chest X-Ray 09/13/18 11:16 CONCLUSION: 1. No acute cardiopulmonary disease. Chest CTA 09/13/18 11:17 CONCLUSION: 1. Small bilateral effusions. Caprini VTE Risk Assessment Caprini VTE Risk Assessment: No/Low Risk (score <= 1) VTE Pharmacological Exception Reason: Active bleeding (This patient is having vaginal bleeding. ) Caprini Risk Assessment Model: Point Value = 1 Point Value = 2 Point Value = 3 Point Value = 5 Age 41-60 Minor surgery BMI > 25 kg/m2 Swollen legs Varicose veins or History of unexplained or recurrent spontaneous Oral contraceptives or hormone replacement Sepsis (< 1 month) Serious lung disease, including pneumonia (< 1 month) Abnormal pulmonary function Acute myocardial infarction Congestive heart failure (< 1 month) History of inflammatory bowel disease Medical patient at bed rest Age 61-74 Arthroscopic surgery Major open surgery (> 45 min) Laparoscopic surgery (> 45 min) Malignancy Confined to bed (> 72 hours) Immobilizing plaster cast Central venous access Age >= 75 History of VTE Family history of VTE Factor V Leiden Prothrombin [id number] Lupus anticoagulant Anticardiolipin antibodies Elevated serum homocysteine Heparin-induced thrombocytopenia Other congenital or acquired thrombophilia Stroke (< 1 month) Elective arthroplasty Hip, pelvis, or leg fracture Acute spinal cord injury (< 1 month) Prophylaxis Regimen: Total Risk Factor Score Risk Level Prophylaxis Regimen 0-1 Low Early ambulation 2 Moderate Order ONE of the following: *Sequential Compression Device (SCD) *Heparin 5000 units SQ BID 3-4 Higher Order ONE of the following medications: *Heparin 5000 units SQ TID *Enoxaparin/Lovenox 40 mg SQ daily (WT < 150 kg, CrCl > 30 mL/min) *Enoxaparin/Lovenox 30 mg SQ daily (WT < 150 kg, CrCl > 10-29 mL/min) *Enoxaparin/Lovenox 30 mg SQ BID (WT < 150 kg, CrCl > 30 mL/min) AND/OR *Sequential Compression Device (SCD) 5 or more Highest Order ONE of the following medications: *Heparin 5000 units SQ TID (Preferred with Epidurals) *Enoxaparin/Lovenox 40 mg SQ daily (WT < 150 kg, CrCl > 30 mL/min) *Enoxaparin/Lovenox 30 mg SQ daily (WT < 150 kg, CrCl > 10-29 mL/min) *Enoxaparin/Lovenox 30 mg SQ BID (WT < 150 kg, CrCl > 30 mL/min) AND *Sequential Compression Device (SCD) Assessment and Plan - Assessment (1) Shortness of breath Code(s): R06.02 - Shortness of breath Status: Acute Plan: Differential diagnosis includes cardiomyopathy versus normal fluid shifts from going to to non. PE was ruled out by CTA. -Placed in observation -Will review EKG -Echocardiogram ordered; ejection fraction under 45% would be concerning for cardiomyopathy -Cardiac telemetry -Monitor intake and output, daily weight -Monitor pulse ox, vital signs -Titrate supplemental oxygen to maintain pulse ox over 94% - patient with active vaginal bleeding is a contraindication for pharmacologic VT E prophylaxis. Will instead use mechanical VT E prophylaxis with bilateral SCDs -Tylenol and/or Motrin as needed for pain or cramping -Lasix 20 mg IV twice daily -Bowel regimen ordered - vitamin ordered (2) Endometritis following delivery Code(s): O86.12 - Endometritis following delivery Status: Acute Plan: Plan to continue medications prescribed at discharge: -Keflex 500 mg p.o. every 12 hours -Metronidazole 500 mg p.o. every 12 hours - Assessment and Plan Patient is a 27-year-old , day 4 female who presented to the ED for evaluation of dyspnea on exertion/shortness of breath since this morning. She had some chest pain that resolved. ED provider discussed the case with OB attending who wanted the patient admitted to a medicine service because of concern for cardiomyopathy. Vitals have been within normal limits and patient is breathing comfortably and satting well on room air. Exam is remarkable for some crackles in the lung arroyo that is consistent with imaging. Lab workup was remarkable for BNP of 351. CTA was done and ruled out PE and showed some small bilateral effusions. Plan to place patient in observation to get an echocardiogram because of concern for cardiomyopathy.
[2018-09-13] MEDS ORDERED: Acetaminophen 325 MG Tablet PO PRN (15:16)
[2018-09-13] MEDS ORDERED: Bisacodyl 10 MG Supp RECTAL PRN (15:16)
--- NOTE | 2018-09-13 16:55 | ECHRPT ---
Indication: CARDIOMYOPATHY CONCLUSIONS The left ventricular systolic function is hyperdynamic with an estimated ejection fraction in the ra nge of 65- 70%. Normal left ventricular size. Wall thickness is normal. No regional wall motion abnormalities are present. Mild thickening of the mitral valve leaflets. Moderate mitral valve regurgitation. Trace aortic valve regurgitation. Mild thickening of the tricuspid valve leaflets. There is moderate tricuspid regurgitation. Mild pulmonary valve regurgitation. BP: / HR: Rhythm: Sinus Technical Quality:Good FINDINGS LEFT VENTRICLE The left ventricular systolic function is hyperdynamic with an estimated ejection fraction in the ra nge of 65- 70%. Normal left ventricular size. Wall thickness is normal. No regional wall motion abnormalities are present. RIGHT VENTRICLE Normal right ventricular size and systolic function. LEFT ATRIUM The left atrial size is normal. RIGHT ATRIUM The right atrial size is normal. ATRIAL SEPTUM Normal atrial septal thickness without atrial level shunting by limited color doppler interrogation. AORTA The aortic root and proximal ascending aorta are normal in size on limited imaging. MITRAL VALVE Mild thickening of the mitral valve leaflets. Moderate mitral valve regurgitation. AORTIC VALVE Trileaflet aortic valve. Trace aortic valve regurgitation. TRICUSPID VALVE Mild thickening of the tricuspid valve leaflets. There is moderate tricuspid regurgitation. PULMONARY VALVE Mild pulmonary valve regurgitation. VESSELS The inferior vena cava is normal in size. PERICARDIUM No pericardial effusion. Zach Werner (Electronically Signed) Final Date:13 September 2018 16:54
[2018-09-13] MEDS: Potassium Chloride 10 MEQ ER Capsule PO SCH (18:00)
[2018-09-13 19:26] LABS: Bacteria,Urine Rare /hpf; Bilirubin,Urine Negative (Negative); Clarity,Urine Clear (Clear); Color,Urine Straw (Yellw/Straw); Glucose,Urine (UA) Negative (Negative); Leukocyte Esterase,Urine Moderate (Negative); Nitrite,Urine Negative (Negative); Squamous Epithelial Cell,Urine <1 /hpf (0-5)
[2018-09-13] MEDS: metroNIDAZOLE 500 MG Tablet PO SCH (20:14)
[2018-09-13] MEDS: Senna/Docusate Sodium 8.6/50 MG Tablet PO SCH (20:52)
[2018-09-13] MEDS ORDERED: Zolpidem Tartrate 5 MG Tablet PO PRN (21:00)
--- NOTE | 2018-09-13 22:38 | P.PNADD ---
Addendum to Inpatient Note Reason for Addendum: Additional Documentation Additional information: S: Resident team paged that patient was having significant swelling and pain in her bilateral axilla and was requesting pain medications. Resident team evaluated patient at bedside. Patient states that she has been having swelling in her right axilla following her delivery and is now having some swelling in her left axilla as well. Patient states that this is occurred before following her last delivery and resolved within a month at that time. She denies any fever chills, worsening shortness of breath or chest pain. She is not breast- feeding. O: T: 98, HR: 56, BP 130's/70's, RR 16-18, O2 94% on RA Gen: Sitting upright in bed in no acute distress Skin: Roughly 5 x 5 cm area of edema appreciated in the right axilla. No overlying redness or warmth. Area feels somewhat nodular and is mildly tender to palpation. Small area of edema in the left axilla again with no overlying redness or warmth. A/P: 27-year-old female admitted for shortness of breath. Complaining of swelling and pain in both axilla, more so on the right. -No clear etiology as it does not appear/behave like an abscess or lymphadenopathy -Given patient's history of axilla swelling/pain following pregnancies it may be secondary to breast tissue engorgement -Tramadol 50 mg every 8 hours as needed for pain -Continue to monitor
[2018-09-14] MEDS: Prenatal Vitamin Chewable Tablet CHEW SCH (08:47)
[2018-09-14] MEDS: metroNIDAZOLE 500 MG Tablet PO SCH ×2 (08:47→21:22)
[2018-09-14] MEDS: Potassium Chloride 10 MEQ ER Capsule PO SCH ×4 (08:47→21:22)
[2018-09-14] MEDS: Senna/Docusate Sodium 8.6/50 MG Tablet PO SCH ×2 (08:47→21:22)
[2018-09-14 09:48] LABS: Albumin 2.6 g/dL (3.4-5.0); Anion Gap 10 meq/L (5-15); Aspartate Aminotransferase 48 U/L (15-37); Blood Urea Nitrogen 9 mg/dL (7-18); Calcium 8.1 mg/dL (8.5-10.1); Carbon Dioxide 24.9 meq/L (21.0-32.0); Chloride 107 meq/L (98-107); Glomerular Filtration Rate Greater Than 89 mL/min (>89); Glucose,Random 94 mg/dL (74-106); Potassium 3.2 meq/L (3.5-5.1); Sodium 142 meq/L (136-145)
[2018-09-14 09:49] LABS: Alanine Aminotransferase 83 U/L (10-53)
[2018-09-14 09:52] LABS: Alkaline Phosphatase 133 U/L (45-117); Total Protein 6.3 g/dL (6.4-8.2)
--- NOTE | 2018-09-14 10:05 | P.HPFP ---
History of Present Illness Primary Care Physician: Ally Sellers MD, R2 Chief Complaint: Shortness of breath History of Present Illness: Ms Quintero is a 27-year-old , day 5 female who presented to the ED for evaluation of dyspnea on exertion/shortness of breath on the day of admission from the time she woke up in the morning. Patient reports that she was woken up out of sleep with a feeling of shortness of breath. She tried to sit up, drink water, put her arms above her head, but none of it helped. She also had some chest pain that morning, which was new and unusual for her. Patient reports that her chest pain resolved as soon as she arrived at the emergency department. However, her shortness of breath and dyspnea on exertion persisted. Patient reports that her legs were swollen since she left the hospital. They are not any more swollen than usual at this time. She denies calf pain bilaterally. Patient can identify no alleviating or exacerbating factors. She states that she has otherwise been healthy. She denies fever, chills, sinus congestion, rhinorrhea, sore throat, chest pain, abdominal pain, nausea, vomiting, dysuria, leg pain, leg swelling. She denies history of seasonal allergies, asthma. She reports vaginal bleeding. She states the baby was born vaginally at 38 weeks. She denies any problems during the , but she reports that she was diagnosed with endometritis and was prescribed a couple of antibiotics to treat this condition, but she had not filled these prescriptions yet. She was discharged from the hospital on 09/11. She stated her SOB developed very suddenly, not gradually and persisted until she came to the ED and received meds. She could hear herself wheezing during this episode but never has wheezing or respiratory problems normally. Today she is breathing well and feels back to normal. Her CTA showed no PE. Her echocardiogram is hyperdynamic (possibly due to her ) and showed moderate mitral regurg. She has some pleural effusions on her CTA very mild. It is unclear to me if valvular abnormalities could be related to the extra blood volume of or if she is developing a more serious valvular abnormality. Today she is asymptomatic but as her problem came so quickly, appreciate help of Cardiology in determining if she need any medicines as an outpt or specific follow up. PMH: denies PSH: Dec 22, 2016. OB history: 6 preg, 5 living children, 1 miscarriage meds: none All: NKA FH: DM in [facility] SH: no TRINA feels safe at home - Diagnosis (1) Shortness of breath (2) Endometritis following delivery (3) Breast tenderness Review of Systems All other systems reviewed negative except as stated in HPI PMFSH - History History Provided By: Patient - Medical / Surgical Hx Neg / Unobtainable Medical Problems Denied: Yes - Medical History Medical History: Medical History (Last Reviewed 09/13/18 @ 12:44 by Skye Hale) Patient denies medical problems - Surgical History Surgical History: Surgical History (Last Reviewed 09/13/18 @ 12:44 by Skye Hale) History of - Family History Family History: Family History (Last Updated 09/13/18 @ 16:05 by Oren Rivera MD, R3) Grandparent Family history of diabetes mellitus Other No pertinent family history - Social History I have reviewed the patient's Social History: Yes - Tobacco History Second Hand Smoke Exposure: No Tobacco Use In Past 30 Days: Yes Smoking Status: Never smoker Tobacco Type: Cigarettes - Alcohol History How Often Do You Have a Drink Containing Alcohol: Never - Substance Use History Substance History: Past History - Substance Use Type Marijuana Status: Early Remission Comment: PATIENT REPORTS NOT USING [place] SINCE BEFORE HER . - Travel History History of Recent Travel: No Recent Travel in the [place] Within the Last 8 Weeks: No Recent Travel Out of the Country Within the Last 8 Weeks: No - Immunization History Tetanus Immunization: <5 Years Medications and Allergies Active Medications: Active Medications Acetaminophen (Tylenol) 650 mg PO Q4H PRN PRN Reason: Temp > 100.4 Al Hydroxide/Mg Hydroxide (Milk Of Magnesia Liq) 30 ml PO Q12H PRN PRN Reason: Mild Constipation Bisacodyl (Dulcolax Supp) 10 mg RECTAL DAILY PRN PRN Reason: SEVERE CONSITIPATION Cephalexin Monohydrate (Keflex) 500 mg PO Q12HR [facility] Last Admin: 09/14/18 08:47 Dose: 500 mg Furosemide (Lasix Inj) 20 mg IV.PUSH BID@0900,1800 [facility] Last Admin: 09/14/18 09:26 Dose: 20 mg Ibuprofen (Motrin) 800 mg PO Q8H PRN PRN Reason: ABDOMINAL CRAMPING Last Admin: 09/14/18 03:53 Dose: 800 mg Lactulose (Lactulose Liq) 30 ml PO DAILY PRN PRN Reason: SEVERE CONSITIPATION Metronidazole (Flagyl) 500 mg PO Q12HR [facility] Last Admin: 09/14/18 08:47 Dose: 500 mg Multivi/Iron Carb/Fe Sulf/FA/Prenat ( Vitamin Chewable) 1 tab CHEW DAILY [facility] Last Admin: 09/14/18 08:47 Dose: 1 tab Ondansetron HCl (Zofran Inj) 4 mg IV.PUSH Q6H PRN PRN Reason: NAUSEA OR VOMITING Potassium Chloride (Kcl) 20 meq PO DAILY [facility] Last Admin: 09/14/18 08:47 Dose: 20 meq Senna/Docusate Sodium (Fawn-Colace) 1 tab PO BID [facility] Last Admin: 09/14/18 08:47 Dose: 1 tab Sennosides (Senokot) 17.2 mg PO Q12H PRN PRN Reason: Moderate Constipation Tramadol HCl (Ultram) 50 mg PO Q8H PRN PRN Reason: pain 1 to 10 Last Admin: 09/13/18 22:49 Dose: 50 mg Zolpidem Tartrate (Ambien) 5 mg PO HS PRN PRN Reason: INSOMNIA Allergies Allergy/AdvReac Type Severity Reaction Status Date / Time No Known Allergies Allergy Verified 09/09/18 06:16 Home Medications Medication Instructions Recorded Confirmed Type No Known Home Medications 09/13/18 09/13/18 History Exam Vital signs: Vital Signs 09/13/18 10:42 09/13/18 11:45 09/13/18 15:21 Temperature 98.0 F Pulse Rate 62 Respiratory Rate 16 Blood Pressure 129/85 Pulse Oximetry 97 98 94 L 09/13/18 16:00 09/13/18 20:00 09/14/18 00:00 Temperature 97.8 F 98.4 F 98.6 F Pulse Rate 54 L 54 L 50 L Respiratory Rate 16 16 16 Blood Pressure 150/89 H 133/83 130/69 Pulse Oximetry 94 L 94 L 94 L 09/14/18 04:00 09/14/18 04:06 09/14/18 07:20 Temperature 97.6 F 98.0 F Pulse Rate 50 L 52 L Respiratory Rate 16 16 Blood Pressure 132/80 146/86 H Pulse Oximetry 95 94 L 97 09/14/18 08:24 Temperature Pulse Rate Respiratory Rate Blood Pressure Pulse Oximetry 94 L Intake & Output 09/13/18 09/14/18 09/14/18 18:59 06:59 18:59 Intake Total 590 / 590 Balance 590 / 590 Weight 90.718 kg Intake: Oral 590 / 590 Other: # Voids 2 Weight On Admission 90.718 kg Narrative: GENERAL: alert, comfortable, no distress SKIN: Warm and dry. HEAD: Normocephalic. EYES: No scleral icterus. No injection or drainage. NECK: Supple, trachea midline. No JVD or lymphadenopathy. CARDIOVASCULAR: Regular rate and rhythm without murmurs, gallops, or rubs. RESPIRATORY: Breath sounds equal bilaterally. No accessory muscle use. GASTROINTESTINAL: Abdomen soft, non-tender, nondistended. MUSCULOSKELETAL: No cyanosis, or edema. BACK: Nontender without obvious deformity. No CVA tenderness. Axillary areas of swelling related to underlying breast tissue Results - Labs Result diagrams: 09/13/18 11:20 09/14/18 09:03 Abnormal lab results 09/13/18 09/13/18 09/13/18 Range/Units 11:20 11:20 11:20 RBC 3.58 L (4.00-5.30) mil/mm3 Hgb 10.5 L (11.6-15.3) gm/dL Hct 32.1 L (35.0-46.0) % Potassium (3.5-5.1) meq/L Chloride 111 H (98-107) meq/L Calcium 7.9 L (8.5-10.1) mg/dL AST 44 H (15-37) U/L ALT 65 H (10-53) U/L Alkaline Phosphatase 151 H (45-117) U/L Troponin I Less than 0.02 L (0.02-0.05) ng/mL B-Natriuretic Peptide 351 H (0-100) pg/mL Total Protein 6.2 L (6.4-8.2) g/dL Albumin 2.7 L (3.4-5.0) g/dL Urine Occult Blood (Negative) Ur Leukocyte Esterase (Negative) Urine RBC (0-3) /hpf Urine WBC (0-5) /hpf Urine Bacteria (None) /hpf 09/13/18 09/14/18 Range/Units 18:45 09:03 RBC (4.00-5.30) mil/mm3 Hgb (11.6-15.3) gm/dL Hct (35.0-46.0) % Potassium 3.2 L (3.5-5.1) meq/L Chloride (98-107) meq/L Calcium 8.1 L (8.5-10.1) mg/dL AST 48 H (15-37) U/L ALT 83 H (10-53) U/L Alkaline Phosphatase 133 H (45-117) U/L Troponin I (0.02-0.05) ng/mL B-Natriuretic Peptide (0-100) pg/mL Total Protein 6.3 L (6.4-8.2) g/dL Albumin 2.6 L (3.4-5.0) g/dL Urine Occult Blood Large H (Negative) Ur Leukocyte Esterase Moderate H (Negative) Urine RBC 4 H (0-3) /hpf Urine WBC 16 H (0-5) /hpf Urine Bacteria Rare H (None) /hpf Short CBC 09/13/18 Range/Units 11:20 WBC 5.6 (4.0-11.0) th/mm3 Hgb 10.5 L (11.6-15.3) gm/dL Hct 32.1 L (35.0-46.0) % Plt Count 234 (150-450) th/mm3 BMP 09/13/18 09/14/18 11:20 09:03 Sodium 144 142 Potassium 3.5 3.2 L Chloride 111 H 107 Carbon Dioxide 26.5 24.9 BUN 8 9 Creatinine 0.52 0.62 Calcium 7.9 L 8.1 L Cardiac Enzymes 09/13/18 Range/Units 11:20 Troponin I Less than 0.02 L (0.02-0.05) ng/mL Liver Function 09/13/18 09/14/18 Range/Units 11:20 09:03 Total Bilirubin 0.4 0.4 (0.2-1.0) mg/dL AST 44 H 48 H (15-37) U/L ALT 65 H 83 H (10-53) U/L Alkaline Phosphatase 151 H 133 H (45-117) U/L Albumin 2.7 L 2.6 L (3.4-5.0) g/dL Urine 09/13/18 Range/Units 18:45 Urine Color Straw (Yellw/Straw) Urine Clarity Clear (Clear) Urine pH 7.0 (5.0-8.5) Ur Specific Gibson 1.010 (1.002-1.035) Urine Protein Negative (Neg-Trace) mg/dL Urine Glucose (UA) Negative (Negative) mg/dL - Imaging Impressions Chest X-Ray 09/13/18 11:16 CONCLUSION: 1. No acute cardiopulmonary disease. Chest CTA 09/13/18 11:17 CONCLUSION: 1. Small bilateral effusions. Caprini VTE Risk Assessment Caprini VTE Risk Assessment: No/Low Risk (score <= 1) VTE Pharmacological Exception Reason: Active bleeding (This patient is having vaginal bleeding. ) Caprini Risk Assessment Model: Point Value = 1 Point Value = 2 Point Value = 3 Point Value = 5 Age 41-60 Minor surgery BMI > 25 kg/m2 Swollen legs Varicose veins or History of unexplained or recurrent spontaneous Oral contraceptives or hormone replacement Sepsis (< 1 month) Serious lung disease, including pneumonia (< 1 month) Abnormal pulmonary function Acute myocardial infarction Congestive heart failure (< 1 month) History of inflammatory bowel disease Medical patient at bed rest Age 61-74 Arthroscopic surgery Major open surgery (> 45 min) Laparoscopic surgery (> 45 min) Malignancy Confined to bed (> 72 hours) Immobilizing plaster cast Central venous access Age >= 75 History of VTE Family history of VTE Factor V Leiden Prothrombin [id number] Lupus anticoagulant Anticardiolipin antibodies Elevated serum homocysteine Heparin-induced thrombocytopenia Other congenital or acquired thrombophilia Stroke (< 1 month) Elective arthroplasty Hip, pelvis, or leg fracture Acute spinal cord injury (< 1 month) Prophylaxis Regimen: Total Risk Factor Score Risk Level Prophylaxis Regimen 0-1 Low Early ambulation 2 Moderate Order ONE of the following: *Sequential Compression Device (SCD) *Heparin 5000 units SQ BID 3-4 Higher Order ONE of the following medications: *Heparin 5000 units SQ TID *Enoxaparin/Lovenox 40 mg SQ daily (WT < 150 kg, CrCl > 30 mL/min) *Enoxaparin/Lovenox 30 mg SQ daily (WT < 150 kg, CrCl > 10-29 mL/min) *Enoxaparin/Lovenox 30 mg SQ BID (WT < 150 kg, CrCl > 30 mL/min) AND/OR *Sequential Compression Device (SCD) 5 or more Highest Order ONE of the following medications: *Heparin 5000 units SQ TID (Preferred with Epidurals) *Enoxaparin/Lovenox 40 mg SQ daily (WT < 150 kg, CrCl > 30 mL/min) *Enoxaparin/Lovenox 30 mg SQ daily (WT < 150 kg, CrCl > 10-29 mL/min) *Enoxaparin/Lovenox 30 mg SQ BID (WT < 150 kg, CrCl > 30 mL/min) AND *Sequential Compression Device (SCD) Assessment and Plan - Assessment (1) Shortness of breath Code(s): R06.02 - Shortness of breath Status: Acute Plan: Differential diagnosis includes cardiomyopathy versus normal fluid shifts from going to to non. PE was ruled out by CTA. -Placed in observation -Will review EKG -Echocardiogram done; ejection fraction 70% but showed moderate mitral regurg and some tricuspid regurg -Cardiac telemetry -Monitor intake and output, daily weight -Monitor pulse ox, vital signs -Titrate supplemental oxygen to maintain pulse ox over 94% - patient with active vaginal bleeding is a contraindication for pharmacologic VT E prophylaxis. Will instead use mechanical VT E prophylaxis with bilateral SCDs -Tylenol and/or Motrin as needed for pain or cramping -Lasix 20 mg IV twice daily -Bowel regimen ordered - vitamin ordered unsure if her mitral regurgitation contributed to her SOB but suspect it did. will ask Cardiology for their opinion and recs about treatment, follow up (2) Endometritis following delivery Code(s): O86.12 - Endometritis following delivery Status: Acute Plan: Plan to continue medications prescribed at discharge: -Keflex 500 mg p.o. every 12 hours -Metronidazole 500 mg p.o. every 12 hours (3) Breast tenderness Code(s): N64.4 - Mastodynia Status: Acute Plan: she is considering breast feeding. a breast pump is ordered for her. This problem will resolve over time . - Assessment and Plan Patient is a 27-year-old , day 4 female who presented to the ED for evaluation of dyspnea on exertion/shortness of breath since this morning. She had some chest pain that resolved. ED provider discussed the case with OB attending who wanted the patient admitted to a medicine service because of concern for cardiomyopathy. Vitals have been within normal limits and patient is breathing comfortably and satting well on room air. Exam is remarkable for some crackles in the lung arroyo that is consistent with imaging. Lab workup was remarkable for BNP of 351. CTA was done and ruled out PE and showed some small bilateral effusions. Plan to place patient in observation to get an echocardiogram because of concern for cardiomyopathy. H&P: Quality - VTE Deep Vein Thrombosis/Pulmonary Embolism Present on Admission: No
--- NOTE | 2018-09-14 11:28 | MB ---
cc: Jamil Hanna MD DATE: 09/07/2018 REASON FOR CONSULTATION: Shortness of breath, mitral regurgitation. HISTORY OF PRESENT ILLNESS: Trina Quintero just had her fifth baby on Thursday and woke up yesterday morning was with shortness of breath and a feeling of someone was sitting on her chest. She came in and her BNP was elevated and she was treated with IV Lasix. She has had improvement in her shortness of breath. Echo now shows moderate mitral regurgitation. The patient has no prior cardiac history, has been well in her entire life and this shortness of breath is brand new for her. She has been 6 times with 5 deliveries, the last one being this past week. She had some mild lower extremity edema with , nothing severe. Most of that has improved since admission. Denies any anginal-type pain except for the feeling she had when she woke up short of breath. PAST MEDICAL HISTORY: Really negative. SOCIAL HISTORY: Significant for marijuana use with a positive tox screen. FAMILY HISTORY: Positive for diabetes in maternal grandparents. REVIEW OF SYSTEMS: Noncontributory. PHYSICAL EXAMINATION: GENERAL: Well-developed, well-nourished, young, -[place] female in no acute distress. VITAL SIGNS: Charted. HEENT: Unremarkable. NECK: Shows the absence of JVD at this time. CHEST: Clear to auscultation. CARDIOVASCULAR: S1, S2, regular rate and rhythm. 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 ABDOMEN: Soft. EXTREMITIES: Reveal only trace edema. Normal pulses. DIAGNOSTIC DATA: EKG shows sinus bradycardia with no acute ST-T wave changes and no pathologic findings. Her chest x-ray and chest CT notable for small bilateral pleural effusions, negative for pulmonary emboli. Laboratories: Her BNP was elevated at 351. Troponins negative. Creatinine normal. AST, ALT, and alkaline phosphatase are mildly elevated. Potassium went from 3.5, down to 3.2. Echocardiogram Doppler study. I have reviewed. There is moderate mitral regurgitation. The regurgitation jet is eccentric. It is oriented posteriorly in the long axis view and courses along the lateral atrial wall all the way to the back of the left atrium in the 4-chamber view. It appears to be at least moderate. Tricuspid regurgitation appears to be mild to moderate. Right ventricular systolic pressure mildly elevated. LV systolic function appears normal with an EF of 70%. IMPRESSION: Acute diastolic congestive heart failure secondary to mitral regurgitation. Symptoms have improved. It is unclear how much the mitral regurgitation could be due to a peripartum cardiomyopathy type process, although LV systolic function appears normal. It is possible she could have some mild annular dilatation leading to the regurgitation. Regurgitation jet is somewhat eccentric, however; and it is also possible that she has some myxomatous degeneration of the valve. I could not see any gross abnormal thickening of the valve on 2D. RECOMMENDATIONS: I would like to add an RANDELL inhibitor. She told me she is not and I did mention the risk of harm to the fetus if she were to breastfeed. Initiate lisinopril 10 mg daily. She is on IV Lasix b.i.d., which I will continue. I am going to increase her potassium supplement as she is hypokalemic. She might be stable enough to be discharged home tomorrow. She will need followup echoes to follow her mitral valve disease. It does not appear to be severe enough to warrant any surgical intervention at this time. MD DAYAN Adhikari/fiona , 10:36 AM , 10:45 AM
[2018-09-14] MEDS: Lisinopril 10 MG Tablet PO SCH (12:01)
--- NOTE | 2018-09-14 16:11 | ECG ---
Date Performed: 09/13/2018 Time Performed: 13:07:32 PTAGE: 27 years EKG: SINUS BRADYCARDIA POSSIBLE LEFT ATRIAL ENLARGEMENT Since previous tracing, no significant c hange noted BORDERLINE ECG PREVIOUS TRACING : 05/19/2016 19.59 DOCTOR: Danilo Zhang Interpretating Date/Time 09/14/2018 16:10:08
[2018-09-14 23:57] VITALS: O2SAT 99
[2018-09-15 07:16] VITALS: BP 129/72; PULSE 64; RESP 18; TEMP 98.1
[2018-09-15 08:15] LABS: Anion Gap 8 meq/L (5-15); Blood Urea Nitrogen 11 mg/dL (7-18); Calcium 8.2 mg/dL (8.5-10.1); Carbon Dioxide 26.3 meq/L (21.0-32.0); Chloride 109 meq/L (98-107); Glomerular Filtration Rate Greater Than 89 mL/min (>89); Glucose,Random 88 mg/dL (74-106); Potassium 3.6 meq/L (3.5-5.1); Sodium 143 meq/L (136-145)
--- NOTE | 2018-09-15 08:53 | P.PNFP ---
Subjective Interval history: Patient denies any shortness of breath or lower extremity swelling this morning. She also reports improvement in her breast pain and armpit pain. She expressed a desire to go home today. <Oren Rivera - 09/15/18 10:32> Results - Labs Result diagrams: 09/13/18 11:20 09/15/18 06:20 <WestonBerkley M - 09/15/18 10:51> Abnormal lab results 09/15/18 Range/Units 06:20 Chloride 109 H (98-107) meq/L Calcium 8.2 L (8.5-10.1) mg/dL [facility] 09/15/18 06:20 Sodium 143 Potassium 3.6 Chloride 109 H Carbon Dioxide 26.3 BUN 11 Creatinine 0.73 Calcium 8.2 L <Berkley Ontiveros - 09/15/18 10:51> Abnormal lab results 09/14/18 09/15/18 Range/Units 09:03 06:20 Potassium 3.2 L (3.5-5.1) meq/L Chloride 109 H (98-107) meq/L Calcium 8.1 L 8.2 L (8.5-10.1) mg/dL AST 48 H (15-37) U/L ALT 83 H (10-53) U/L Alkaline Phosphatase 133 H (45-117) U/L Total Protein 6.3 L (6.4-8.2) g/dL Albumin 2.6 L (3.4-5.0) g/dL [facility] 09/14/18 09/15/18 09:03 06:20 Sodium 142 143 Potassium 3.2 L 3.6 Chloride 107 109 H Carbon Dioxide 24.9 26.3 BUN 9 11 Creatinine 0.62 0.73 Calcium 8.1 L 8.2 L Liver Function 09/14/18 Range/Units 09:03 Total Bilirubin 0.4 (0.2-1.0) mg/dL AST 48 H (15-37) U/L ALT 83 H (10-53) U/L Alkaline Phosphatase 133 H (45-117) U/L Albumin 2.6 L (3.4-5.0) g/dL <Oren Rivera - 09/15/18 08:53> Physical Exam Vital signs: Vital Signs 09/14/18 12:00 09/14/18 16:00 09/14/18 20:00 Temperature 98.7 F 98.7 F Pulse Rate 51 L 51 L 53 L Respiratory Rate 16 16 16 Blood Pressure 115/72 137/86 141/84 H Pulse Oximetry 97 98 98 09/14/18 23:57 09/15/18 04:00 09/15/18 07:14 Temperature 98.4 F 98.7 F 98.1 F Pulse Rate 53 L 55 L 64 Respiratory Rate 16 16 18 Blood Pressure 133/83 140/88 129/72 Pulse Oximetry 99 99 Intake & Output 09/14/18 09/15/18 09/15/18 18:59 06:59 18:59 Intake Total 1090 / 1090 Balance 1090 / 1090 Intake: Oral 1090 / 1090 Other: # Voids 2 <Berkley Ontiveros - 09/15/18 10:51> Vital Signs 09/14/18 12:00 09/14/18 16:00 09/14/18 20:00 Temperature 98.7 F 98.7 F Pulse Rate 51 L 51 L 53 L Respiratory Rate 16 16 16 Blood Pressure 115/72 137/86 141/84 H Pulse Oximetry 97 98 98 09/14/18 23:57 09/15/18 04:00 09/15/18 07:14 Temperature 98.4 F 98.7 F 98.1 F Pulse Rate 53 L 55 L 64 Respiratory Rate 16 16 18 Blood Pressure 133/83 140/88 129/72 Pulse Oximetry 99 99 Intake & Output 09/14/18 09/15/18 09/15/18 18:59 06:59 18:59 Intake Total 1090 / 1090 Balance 1090 / 1090 Intake: Oral 1090 / 1090 Other: # Voids 2 <Oren Rivera - 09/15/18 10:32> Narrative: GENERAL: alert, comfortable, no distress SKIN: Warm and dry. HEAD: Normocephalic. EYES: No scleral icterus. No injection or drainage. NECK: Supple, trachea midline. No JVD or lymphadenopathy. CARDIOVASCULAR: Bradycardic rate and regular rhythm with 2/6 MR murmur at apex, but no gallops, or rubs. RESPIRATORY: Breath sounds equal bilaterally. No accessory muscle use. GASTROINTESTINAL: Abdomen soft, non-tender, nondistended. Uterus is firm, non- tender. MUSCULOSKELETAL: No cyanosis, or edema. BACK: Nontender without obvious deformity. No CVA tenderness. Axillary areas of swelling related to underlying breast tissue <Oren Rivera - 09/15/18 10:32> Assessment and Plan - Assessment (1) Shortness of breath Code(s): R06.02 - Shortness of breath Status: Acute (2) Endometritis following delivery Code(s): O86.12 - Endometritis following delivery Status: Acute (3) Breast tenderness Code(s): N64.4 - Mastodynia Status: Acute <Berkley Ontiveros Carmen - 09/15/18 10:51> (1) Shortness of breath Code(s): R06.02 - Shortness of breath Status: Acute Plan: Differential diagnosis: most likely diagnosis based on imaging his mitral valve regurgitation. Echocardiogram ruled out cardiomyopathy versus normal fluid shifts from going to to non. PE was ruled out by CTA. -Placed in observation -Echocardiogram done; ejection fraction 70% but showed moderate mitral regurg and some tricuspid regurg -Cardiac telemetry -Monitor intake and output, daily weight -Monitor pulse ox, vital signs -Titrate supplemental oxygen to maintain pulse ox over 94% - patient with active vaginal bleeding is a contraindication for pharmacologic VT E prophylaxis. Will instead use mechanical VT E prophylaxis with bilateral SCDs -Tylenol and/or Motrin as needed for pain or cramping -Lasix 20 mg IV twice daily; will discharge patient on furosemide 40 mg p.o. daily with potassium supplement as well as lisinopril 10 mg p.o. daily per cardiology recommendations -Bowel regimen ordered - vitamin ordered; will discharge patient on this medication -Cardiology consulted. Recommendations appreciated below: Patient's symptoms have resolved, congestion resolved Unclear if MR is related to post- process vs. myxomatous (highly eccentric MR jet suggests the latter), Will hold off on carvedilol addition due to bradycardia. OK to DC home on furosemide 40mg, KCL 20meq, lisinopril 10mg daily. (2) Endometritis following delivery Code(s): O86.12 - Endometritis following delivery Status: Acute Plan: Plan to continue medications prescribed at discharge: -Keflex 500 mg p.o. every 12 hours for 5 days -Metronidazole 500 mg p.o. every 12 hours for 5 days -Patient received 1 day of antibiotics while in the hospital, so we will discharge with 4 more days of antibiotics. (3) Breast tenderness Code(s): N64.4 - Mastodynia Status: Acute Plan: -Continue to express breast milk -Alternate hot packs and cold packs as needed -NSAIDs as needed <Oren Rivera - 09/15/18 10:24> - Assessment and Plan Patient is a 27-year-old , day 4 female who presented to the ED for evaluation of dyspnea on exertion/shortness of breath since this morning. She had some chest pain that resolved. ED provider discussed the case with OB attending who wanted the patient admitted to a medicine service because of concern for cardiomyopathy. Vitals have been within normal limits and patient is breathing comfortably and satting well on room air. Exam was remarkable for some crackles in the lung arroyo that is consistent with imaging , which resolved with IV Lasix. Lab workup was remarkable for BNP of 351. CTA was done and ruled out PE and showed some small bilateral effusions. Placed patient in observation to get an echocardiogram because of concern for cardiomyopathy. Echocardiogram showed: CONCLUSIONS The left ventricular systolic function is hyperdynamic with an estimated ejection fraction in the range of 65- 70%. Normal left ventricular size. Wall thickness is normal. No regional wall motion abnormalities are present. Mild thickening of the mitral valve leaflets. Moderate mitral valve regurgitation. Trace aortic valve regurgitation. Mild thickening of the tricuspid valve leaflets. There is moderate tricuspid regurgitation. Mild pulmonary valve regurgitation. Thus, cardiology was consulted for moderate mitral valve regurgitation. Recommendations appreciated below: Patient's symptoms have resolved, congestion resolved Unclear if MR is related to post- process vs. myxomatous (highly eccentric MR jet suggests the latter), Will hold off on carvedilol addition due to bradycardia. OK to DC home on furosemide 40mg, KCL 20meq, lisinopril 10mg daily. <Oren Rivera - 09/15/18 10:32> Discussed Condition With: Dr. Ontiveros <Oren Rivera - 09/15/18 10:32> - Attending Attestation The exam, history, and the medical decision-making described in the above note were completed with the assistance of the resident physician. I reviewed and agree with the findings presented. I attest that I had a [id number] encounter with the patient on the same day, and personally performed and documented my assessment and findings in the medical record. She understands that her heart valve could potentially cause more problems in the future. However, she is doing so well and is eager to get home to her baby. <Berkley Ontiveros - 09/15/18 10:51>
--- NOTE | 2018-09-15 09:21 | P.PNCA ---
Subjective Interval history: No complaints. SOB is gone Medications and Allergies Active Medications: Active Medications Acetaminophen (Tylenol) 650 mg PO Q4H PRN PRN Reason: Temp > 100.4 Al Hydroxide/Mg Hydroxide (Milk Of Magnesia Liq) 30 ml PO Q12H PRN PRN Reason: Mild Constipation Bisacodyl (Dulcolax Supp) 10 mg RECTAL DAILY PRN PRN Reason: SEVERE CONSITIPATION Cephalexin Monohydrate (Keflex) 500 mg PO Q12HR [facility] Last Admin: 09/14/18 21:22 Dose: 500 mg Furosemide (Lasix Inj) 20 mg IV.PUSH BID@0900,1800 [facility] Last Admin: 09/14/18 17:30 Dose: 20 mg Lactulose (Lactulose Liq) 30 ml PO DAILY PRN PRN Reason: SEVERE CONSITIPATION Lisinopril (Prinivil) 10 mg PO DAILY [facility] Last Admin: 09/14/18 12:01 Dose: 10 mg Metronidazole (Flagyl) 500 mg PO Q12HR [facility] Last Admin: 09/14/18 21:22 Dose: 500 mg Multivi/Iron Carb/Fe Sulf/FA/Prenat ( Vitamin Chewable) 1 tab CHEW DAILY [facility] Last Admin: 09/14/18 08:47 Dose: 1 tab Ondansetron HCl (Zofran Inj) 4 mg IV.PUSH Q6H PRN PRN Reason: NAUSEA OR VOMITING Potassium Chloride (Kcl) 20 meq PO QID [facility] Last Admin: 09/14/18 21:22 Dose: 20 meq Senna/Docusate Sodium (Fawn-Colace) 1 tab PO BID [facility] Last Admin: 09/14/18 21:22 Dose: Not Given Sennosides (Senokot) 17.2 mg PO Q12H PRN PRN Reason: Moderate Constipation Tramadol HCl (Ultram) 50 mg PO Q8H PRN PRN Reason: pain 1 to 10 Last Admin: 09/15/18 05:50 Dose: 50 mg Zolpidem Tartrate (Ambien) 5 mg PO HS PRN PRN Reason: INSOMNIA Allergies Allergy/AdvReac Type Severity Reaction Status Date / Time No Known Allergies Allergy Verified 09/09/18 06:16 Home Medications Medication Instructions Recorded Confirmed Type No Known Home Medications 09/13/18 09/13/18 History Physical Exam Vital signs: Vital Signs 09/14/18 12:00 09/14/18 16:00 09/14/18 20:00 Temperature 98.7 F 98.7 F Pulse Rate 51 L 51 L 53 L Respiratory Rate 16 16 16 Blood Pressure 115/72 137/86 141/84 H Pulse Oximetry 97 98 98 09/14/18 23:57 09/15/18 04:00 09/15/18 07:14 Temperature 98.4 F 98.7 F 98.1 F Pulse Rate 53 L 55 L 64 Respiratory Rate 16 16 18 Blood Pressure 133/83 140/88 129/72 Pulse Oximetry 99 99 Intake & Output 09/14/18 09/15/18 09/15/18 18:59 06:59 18:59 Intake Total 1090 / 1090 Balance 1090 / 1090 Intake: Oral 1090 / 1090 Other: # Voids 2 Narrative: Alert, NAD Tele sinus celena Chest: clear CV S1S2 RRR with 2/6 MR murmur at apex Abd soft Ext no edema Results 09/13/18 11:20 09/15/18 06:20 Cardiac Enzymes 09/13/18 09/13/18 09/14/18 Range/Units 11:20 11:20 09:03 AST 44 H 48 H (15-37) U/L Troponin I Less than 0.02 L (0.02-0.05) ng/mL B-Natriuretic Peptide 351 H (0-100) pg/mL Coagulation 09/13/18 09/13/18 Range/Units 11:20 11:20 PT 10.7 (9.8-11.6) sec APTT 28.2 (24.3-30.1) sec B-Natriuretic Peptide 351 H (0-100) pg/mL CBC 09/13/18 Range/Units 11:20 WBC 5.6 (4.0-11.0) th/mm3 RBC 3.58 L (4.00-5.30) mil/mm3 Hgb 10.5 L (11.6-15.3) gm/dL Hct 32.1 L (35.0-46.0) % Plt Count 234 (150-450) th/mm3 Neut # (Auto) 3.6 (1.8-7.7) th/mm3 Lymph # (Auto) 1.3 (1.0-4.8) th/mm3 Preble # (Auto) 0.4 (0.0-0.9) th/mm3 Eos # (Auto) 0.2 (0.0-0.4) th/mm3 Baso # (Auto) 0.0 (0.0-0.2) th/mm3 Comprehensive Metabolic Panel 09/13/18 09/14/18 09/15/18 Range/Units 11:20 09:03 06:20 Sodium 144 142 143 (136-145) meq/L Potassium 3.5 3.2 L 3.6 (3.5-5.1) meq/L Chloride 111 H 107 109 H (98-107) meq/L Carbon Dioxide 26.5 24.9 26.3 (21.0-32.0) meq/L BUN 8 9 11 (7-18) mg/dL Creatinine 0.52 0.62 0.73 (0.50-1.00) mg/dL Calcium 7.9 L 8.1 L 8.2 L (8.5-10.1) mg/dL AST 44 H 48 H (15-37) U/L ALT 65 H 83 H (10-53) U/L Alkaline Phosphatase 151 H 133 H (45-117) U/L Total Protein 6.2 L 6.3 L (6.4-8.2) g/dL Albumin 2.7 L 2.6 L (3.4-5.0) g/dL - Imaging and Cardiology Imaging: Impressions Chest X-Ray 09/13/18 11:16 CONCLUSION: 1. No acute cardiopulmonary disease. Chest CTA 09/13/18 11:17 CONCLUSION: 1. Small bilateral effusions. Assessment and Plan - Assessment (1) Acute diastolic (congestive) heart failure Code(s): I50.31 - Acute diastolic (congestive) heart failure Status: Acute (2) Mitral regurgitation Code(s): I34.0 - Nonrheumatic mitral (valve) insufficiency Status: Acute - Plan Patient's symptoms have resolved, congestion resolved Unclear if MR is related to post- process vs. myxomatous (highly eccentric MR jet suggests the latter), Will hold off on carvedilol addition due to bradycardia. OK to DC home on furosemide 40mg, KCL 20meq, lisinopril 10mg daily.
[2018-09-15] MEDS: Senna/Docusate Sodium 8.6/50 MG Tablet PO SCH (09:24)
[2018-09-15] MEDS: metroNIDAZOLE 500 MG Tablet PO SCH (09:24)
[2018-09-15] MEDS: Prenatal Vitamin Chewable Tablet CHEW SCH (09:24)
[2018-09-15] MEDS: Potassium Chloride 10 MEQ ER Capsule PO SCH (09:24)
[2018-09-15] MEDS: Lisinopril 10 MG Tablet PO SCH (09:24)
--- NOTE | 2018-09-15 10:42 | P.DS ---
Date of admission: 09/13/18 15:16 Primary care physician: Ally Sellers MD, R2 Attending physician on discharge: Berkley Ontiveros Anticipated date of discharge: 09/15/18 Brief History from admission: Ms Quintero is a 27-year-old , day 5 female who presented to the ED for evaluation of dyspnea on exertion/shortness of breath on the day of admission from the time she woke up in the morning. Patient reports that she was woken up out of sleep with a feeling of shortness of breath. She tried to sit up, drink water, put her arms above her head, but none of it helped. She also had some chest pain that morning, which was new and unusual for her. Patient reports that her chest pain resolved as soon as she arrived at the emergency department. However, her shortness of breath and dyspnea on exertion persisted. Patient reports that her legs were swollen since she left the hospital. They are not any more swollen than usual at this time. She denies calf pain bilaterally. Patient can identify no alleviating or exacerbating factors. She states that she has otherwise been healthy. She denies fever, chills, sinus congestion, rhinorrhea, sore throat, chest pain, abdominal pain, nausea, vomiting, dysuria, leg pain, leg swelling. She denies history of seasonal allergies, asthma. She reports vaginal bleeding. She states the baby was born vaginally at 38 weeks. She denies any problems during the , but she reports that she was diagnosed with endometritis and was prescribed a couple of antibiotics to treat this condition, but she had not filled these prescriptions yet. She was discharged from the hospital on 09/11. She stated her SOB developed very suddenly, not gradually and persisted until she came to the ED and received meds. She could hear herself wheezing during this episode but never has wheezing or respiratory problems normally. Today she is breathing well and feels back to normal. Her CTA showed no PE. Her echocardiogram is hyperdynamic (possibly due to her ) and showed moderate mitral regurg. She has some pleural effusions on her CTA very mild. It is unclear to me if valvular abnormalities could be related to the extra blood volume of or if she is developing a more serious valvular abnormality. Today she is asymptomatic but as her problem came so quickly, appreciate help of Cardiology in determining if she need any medicines as an outpt or specific follow up. PMH: denies PSH: Dec 22, 2016. OB history: 6 preg, 5 living children, 1 miscarriage meds: none All: NKA FH: DM in [facility] SH: no TRINA feels safe at home Patient update on day of discharge: Patient is a 27-year-old , day 4 female who presented to the ED for evaluation of dyspnea on exertion/shortness of breath since this morning. She had some chest pain that resolved. ED provider discussed the case with OB attending who wanted the patient admitted to a medicine service because of concern for cardiomyopathy. Vitals have been within normal limits and patient is breathing comfortably and satting well on room air. Exam was remarkable for some crackles in the lung arroyo that is consistent with imaging , which resolved with IV Lasix. Lab workup was remarkable for BNP of 351. CTA was done and ruled out PE and showed some small bilateral effusions. Placed patient in observation to get an echocardiogram because of concern for cardiomyopathy. Echocardiogram showed: CONCLUSIONS The left ventricular systolic function is hyperdynamic with an estimated ejection fraction in the range of 65- 70%. Normal left ventricular size. Wall thickness is normal. No regional wall motion abnormalities are present. Mild thickening of the mitral valve leaflets. Moderate mitral valve regurgitation. Trace aortic valve regurgitation. Mild thickening of the tricuspid valve leaflets. There is moderate tricuspid regurgitation. Mild pulmonary valve regurgitation. Thus, cardiology was consulted for moderate mitral valve regurgitation. Recommendations appreciated below: Patient's symptoms have resolved, congestion resolved Unclear if MR is related to post- process vs. myxomatous (highly eccentric MR jet suggests the latter), Will hold off on carvedilol addition due to bradycardia. OK to DC home on furosemide 40mg, KCL 20meq, lisinopril 10mg daily. DS: Diagnosis - Discharge Diagnosis (1) Shortness of breath Status: Acute (2) Endometritis following delivery Status: Acute (3) Breast tenderness Status: Acute DS: Medications - Discharge Medications Prescriptions: cephalexin 500 mg PO Q12HR 4 Days cap furosemide 40 mg PO DAILY #30 tab lisinopril 10 mg PO DAILY 30 Days #30 tab metronidazole 500 mg PO Q12HR #4 tab potassium chloride 20 meq PO DAILY 30 Days #60 cap [id number] [ 19] 1 tab CHEW DAILY 30 Days #30 tab DS: Summary Hospital Course: (1) Shortness of breath - for her shortness of breath, patient was started on Lasix 20 mg IV twice daily, which seemed to improve her symptoms. Patient had echocardiogram done, which showed moderate mitral regurgitation. Thus, cardiology was consulted. They started her on lisinopril and discharged home with furosemide and potassium supplement. I recommended follow-up with cardiology. Code(s): R06.02 - Shortness of breath Status: Acute Plan: Differential diagnosis: most likely diagnosis based on imaging his mitral valve regurgitation. Echocardiogram ruled out cardiomyopathy versus normal fluid shifts from going to to non. PE was ruled out by CTA. -Placed in observation -Echocardiogram done; hyperdynamic ejection fraction of 70% but showed moderate mitral regurg and some tricuspid regurg -Cardiac telemetry -Monitor intake and output, daily weight -Monitor pulse ox, vital signs -Titrate supplemental oxygen to maintain pulse ox over 94% - patient with active vaginal bleeding is a contraindication for pharmacologic VT E prophylaxis. Will instead use mechanical VT E prophylaxis with bilateral SCDs -Tylenol and/or Motrin as needed for pain or cramping -Lasix 20 mg IV twice daily; will discharge patient on furosemide 40 mg p.o. daily with potassium supplement as well as lisinopril 10 mg p.o. daily per cardiology recommendations -Bowel regimen ordered - vitamin ordered; will discharge patient on this medication -Cardiology consulted. Recommendations appreciated below: Patient's symptoms have resolved, congestion resolved Unclear if MR is related to post- process vs. myxomatous (highly eccentric MR jet suggests the latter), Will hold off on carvedilol addition due to bradycardia. OK to DC home on furosemide 40mg, KCL 20meq, lisinopril 10mg daily. (2) Endometritis following delivery -patient was prescribed antibiotics after hospital admission for baby delivery, which were continued during this hospital admission. Code(s): O86.12 - Endometritis following delivery Status: Acute Plan: Plan to continue medications prescribed at discharge: -Keflex 500 mg p.o. every 12 hours for 5 days -Metronidazole 500 mg p.o. every 12 hours for 5 days -Patient received 1 day of antibiotics while in the hospital, so we will discharge with 4 more days of antibiotics. (3) Breast tenderness -patient's breast and axillary tenderness were most likely from not expressing her breast milk. Recommended expressing her breast milk, which helped. Code(s): N64.4 - Mastodynia Status: Acute Plan: -Continue to express breast milk -Alternate hot packs and cold packs as needed -NSAIDs as needed - Time Spent with Patient Total time spent providing and/or coordinating discharge services: Less than 30 minutes - Quality: VTE Deep Vein Thrombosis/Pulmonary Embolism Present on Admission: No Exam Vital signs: Vital Signs 09/14/18 12:00 09/14/18 16:00 09/14/18 20:00 Temperature 98.7 F 98.7 F Pulse Rate 51 L 51 L 53 L Respiratory Rate 16 16 16 Blood Pressure 115/72 137/86 141/84 H Pulse Oximetry 97 98 98 09/14/18 23:57 09/15/18 04:00 09/15/18 07:14 Temperature 98.4 F 98.7 F 98.1 F Pulse Rate 53 L 55 L 64 Respiratory Rate 18 Blood Pressure 133/83 140/88 129/72 Pulse Oximetry 99 99 Intake & Output 09/14/18 09/15/18 09/15/18 18:59 06:59 18:59 Intake Total 1090 / 1090 Balance 1090 / 1090 Intake: Oral 1090 / 1090 Other: # Voids 2 Narrative: GENERAL: alert, comfortable, no distress SKIN: Warm and dry. HEAD: Normocephalic. EYES: No scleral icterus. No injection or drainage. NECK: Supple, trachea midline. No JVD or lymphadenopathy. CARDIOVASCULAR: Bradycardic rate and regular rhythm with 2/6 MR murmur at apex, but no gallops, or rubs. RESPIRATORY: Breath sounds equal bilaterally. No accessory muscle use. GASTROINTESTINAL: Abdomen soft, non-tender, nondistended. Uterus is firm, non- tender. MUSCULOSKELETAL: No cyanosis, or edema. BACK: Nontender without obvious deformity. No CVA tenderness. Axillary areas of swelling related to underlying breast tissue Results Procedures completed during hospitalization: none Completed studies during hospitalization: CXR, CTA, Echocardiogram Labs on day of discharge: Labs from last 24 hours 09/15/18 06:20 Sodium 143 Potassium 3.6 Chloride 109 H Carbon Dioxide 26.3 Anion Gap 8 BUN 11 Creatinine 0.73 Estimated GFR Greater than 89 Random Glucose 88 Calcium 8.2 L Magnesium 2.0 - Impressions ITS Impressions Chest X-Ray 09/13/18 11:16 CONCLUSION: 1. No acute cardiopulmonary disease. Chest CTA 09/13/18 11:17 CONCLUSION: 1. Small bilateral effusions. Discharge Plan - Discharge Disposition Patient Disposition: 01 Discharge Home - Discharge Condition Condition: Good - Discharge Order Discharge Orders: Discharge Order (Routine); Ordered 09/15/18 Ordered By: Oren Rivera Cardiology Clear for Discharge (Routine); Ordered 09/15/18 Ordered By: Jamil Hanna - Discharge Details Anticipated Discharge Date: 09/15/18 - Physicians Team Primary Care Provider: Ally Sellers Attending Provider: Berkley Ontiveros Other Providers: [employer],Insurance ; Jamil Hanna MD
== END 2018-09-15 10:42 | disposition home or self-care (01) ==
LOC: NEPE 10:36 → INTOOBSV 14:29 → NEDA 14:29 → NEPHCDU 17:09 → NEPFCDU 21:12 → NEPHCDU 21:13
PROVIDERS: ADMIT Family Medicine; ATTEND Family Medicine